=== PATIENT | male | born 1955 | race Caucasian/White ===

== ENCOUNTER → 2017-02-04 | Outpatient (CLI) | payer BC ==
[2013-12-10 10:50] VITALS: BP 116/64
[~2017-02-04] MED LIST: AMLO1TAB93 PO; CLOP75TA57 PO; GLYB2.5T2 PO; HYDR25TA9 PO; METF850T2 PO; PIOG15TA42 PO; REGADENOSON 0.4 MG/5 ML DISP.SYRIN. IV ONE; SIMV10TA PO
--- NOTE | 2017-02-04 11:26 | CARD ---
APPROVED REPORT EXAM: Two-dimensional and M-mode echocardiogram with Doppler and color Doppler. Other Information Quality : GoodHR: 58bpm Rhythm : Bradycardia INDICATION Cardiac Disease: CAD Murmur Chest discomfort RISK FACTORS Obesity 2D DIMENSIONS RVDd3.1 (2.9-3.5cm)Left Atrium(2D)4.0 (1.6-4.0cm) IVSd1.7 (0.7-1.1cm)Aortic Root(2D)3.6 (2.0-3.7cm) LVDd4.6 (3.9-5.9cm)LVOT Diameter2.6 (1.8-2.4cm) PWd1.5 (0.7-1.1cm)LVDs3.3 (2.5-4.0cm) FS (%) 28.8 %SV53.9 ml LVEF(%)55.4 (>50%) Aortic Valve AoV Peak Josafat.138.0cm/sAoV VTI30.9cm AO Peak GR.7.6mmHgLVOT Peak Josafat.84.2cm/s AO Mean GR.5mmHgAVA (VMAX)3.35cm2 Mitral Valve MV E Gafzhzxm60.6cm/sMV E Peak Gr.4mmHg MV DECEL [id number] A Pejisbqs11.3cm/s MV E Mean Gr.1mmHgE/A Ratio0.6 MV A Cpyqfeob12qj Pulmonary Valve PV Peak Eatvhscs71.6cm/s Pulmonary Vein S1 Ekegmagr15.8cm/sD2 Ffqpghls07.7cm/s PVa onrrgjdy82owff LEFT VENTRICLE The left ventricle is normal size. There is mild concentric left ventricular hypertrophy. The left ve ntricular systolic function is normal and the ejection fraction is within normal range. The Ejection Fraction is 55-60%. There is normal LV segmental wall motion. Transmitral Doppler flow pattern is Gra de I-abnormal relaxation pattern. RIGHT VENTRICLE The right ventricle is normal size. There is normal right ventricular wall thickness. The right ventr icular systolic function is normal. ATRIA The left atrium is mildly dilated. The right atrium size is normal. The interatrial septum is intact with no evidence for an atrial septal defect or patent foramen ovale as noted on 2-D or Doppler imagi ng. AORTIC VALVE The aortic valve is mildly sclerotic. The aortic valve is trileaflet. Doppler and Color Flow revealed no significant aortic regurgitation. There is no significant aortic valvular stenosis. MITRAL VALVE Mitral annular calcification is mild. The mitral valve leaflets are thickened. There is no evidence o f mitral valve prolapse. There is no mitral valve stenosis. Doppler and Color Flow revealed no mitral valve regurgitation noted. TRICUSPID VALVE Doppler and Color Flow revealed no tricuspid valve regurgitation noted. There is no pulmonary hyperte nsion. PULMONIC VALVE The pulmonic valve is not well visualized but appears to open adequately. Doppler and Color Flow reve aled no pulmonic valvular regurgitation. There is no pulmonic valvular stenosis by spectral Doppler. GREAT VESSELS The aortic root is normal in size. The ascending aorta is normal in size. The pulmonary artery is nor mal. The IVC is normal in size and collapses >50% with inspiration. PERICARDIAL EFFUSION There is no evidence of significant pericardial effusion. Critical Notification Critical Value: No <Conclusion> The left ventricular systolic function is normal and the ejection fraction is within normal range. Th e Ejection Fraction is 55-60%. There is normal LV segmental wall motion. No significant valvular disease.
--- NOTE | 2017-02-04 13:47 | RAD ---
APPROVED REPORT Test Type: Pharmacological Stress Nurse/Tech: Neelima Moss R.N. Test Indications: CAD Cardiac History: stents 12 years ago, htn,DM Medications: See Electronic Medical Record Medical History: See Electronic Medical Record Resting ECG: SB w/ inverted T wave in leads III,AVF, V3 Resting Heart Rate: 55 bpm Resting Blood Pressure: 146/62mmHg Pretest Chest Pain: No chest pain Nurse/Tech Notes S1S2, lungs CTA Consent: The procedure was explained to the patient in lay terms. Informed consent was witnessed. Ki eout was entered into [employer]. History and Stress Test performed by RT Tejas Chauhan) (N) Pharm. Details Pharmacologic stress testing was performed using 0.4mg per 5ml of regadenoson given intravenously ove r 7-10 seconds. Stress Symptoms slight SOB- quickly resolved POST EXERCISE Reason for Termination: Infusion complete Max HR: 69 bpm Max Blood Pressure: 140/62mmHg Blood Pressure response to exercise: Normal blood pressure response during stress. Heart Rate response to exercise: wnl Chest Pain: No. Arrhythmia: No. ST Change: No. INTERPRETATION Stress EKG Conclusion: No evidence of stress induced EKG changes. Imaging Protocol IMAGE PROTOCOL: Rest Tc-99m/stress Tc-99m 1 day Rest: Stress: Viability: Radiopharm.Tc99m GrcxsnzezIb07g Sestamibi Blpe66dFp 32mCi Img Date 02/04/2017 02/04/2017 Inj-Img Gsbb23vpt. 75min. Rest Admin Site:IV - Left AntecubitalAdministrator:RT Tejas Chauhan)(N) Stress Admin Site: IV - Left AntecubitalAdministrator: RT Gissel (Tanja)(N) STRESS DATA End Diast. Vol.188.0mlAv. Heart Rate64.0bpm End Syst. Vol.78.0mlCO Index BSA0.0L/min Myocardial Sjwc259.0gEject. Thctsixl45.0% Stress Rates Pk. Fill Rate1.95EDV/secLVtime Pk. Fill 239.15msec Pk. Empty Rate2.81ESV/secLVtime Pk. Nrrzf288.23msec 1/3 Pk. Fill0.90EDV/sec Stress Scores Regional WT0.00Summed WT2.00 Regional WM0.00Summed WM3.00 The rest and stress images show normal perfusion, normal contraction and thickening. LV Perf. Quant 17 Seg. SSS0.00 17 Seg. SRS0.00 17 Seg. SDS0.00 Stress Defect Extent (% LAD)0.00Rest Defect Extent (% LAD)0.00Rev. Defect Extent (% LAD)0.00 Stress Defect Extent (% LCX) 0.00Rest Defect Extent (% LCX)0.00Rev. Defect Extent (% LCX)0.00 Stress Defect Extent (% RCA)0.00Rest Defect Extent (% RCA)0.00Rev. Defect Extent (% RCA)0.00 Stress Defect Extent (% YOANNA)0.00Rest Defect Extent (% YOANNA)0.00Rev. Defect Extent (% YOANNA)0.00 Other Information Quality:Good Risk Assessment: Low Risk Conclusion 1. No evidence of EKG changes with stress testing. 2. Normal perfusion at stress/rest. 3. Low risk study. 4. EF > 60%.
== END | disposition home or self-care (01) ==
LOC: NM 09:05
PROVIDERS: ATTEND Internal Medicine Cardiovascular Disease
DX: I25.10 Atherosclerotic heart disease of native coronary artery without angina pectoris (principal); I49.5 Sick sinus syndrome; I10 Essential (primary) hypertension; E11.9 Type 2 diabetes mellitus without complications; R01.1 Cardiac murmur, unspecified
CPT/HCPCS: 78452; 93017; 93306; 96374; 96375; 96376; A9500; J2785

== ENCOUNTER → 2017-06-20 | Outpatient (CLI) | payer BC | END | disposition home or self-care (01) | LOC: US 07:07 | DX: K80.20 Calculus of gallbladder without cholecystitis without obstruction (principal); K82.8 Other specified diseases of gallbladder | CPT/HCPCS: 76700 ==

== ENCOUNTER 2017-07-04 06:05 | Day surgery (SDC) | payer BC ==
[2017-07-04] MEDS: IV RINGERS,LACTATED 1000ML 1,000 ML IV ×2 (06:53)
[2017-07-04 06:55] LABS: POC GLUCOSE 179 mg/dL (70-99)
[2017-07-04] MEDS ORDERED: fentaNYL PF VIAL 100 MCG/2 ML VIAL IV ×2 (07:00)
[2017-07-04] MEDS ORDERED: HYDROmorphone 2 MG/ML VIAL IV ×2 (07:00)
[2017-07-04] MEDS ORDERED: LIDOCAINE 1% PF 2 ML VIAL. ID ×2 (07:00)
[2017-07-04] MEDS ORDERED: ceFAZolin 2GM PREMIX 2 GM/50 ML BAG IV ×2 (07:00)
[2017-07-04] MEDS ORDERED: ONDANSETRON PF 4 MG/2 ML VIAL. IV ×2 (07:00)
[2017-07-04] MEDS ORDERED: MORPHINE SULFATE 4 MG/ML DISP.SYRIN. IV ×2 (07:00)
[2017-07-04] MEDS ORDERED: NEOSTIGMINE 10 MG/10 ML VIAL. ×2 (07:04)
[2017-07-04] MEDS ORDERED: SEVOFLURANE 61 TO 120 MINUTES. IH ×2 (07:04)
[2017-07-04] MEDS ORDERED: MIDAZOLAM HCL/PF 2 MG/2 ML VIAL. ×2 (07:04)
[2017-07-04] MEDS ORDERED: fentaNYL PF VIAL 100 MCG/2 ML VIAL ×4 (07:04→08:50)
[2017-07-04] MEDS ORDERED: LIDOCAINE 2% PF Vial for OR 5 ML VIAL. ×2 (07:05)
[2017-07-04] MEDS ORDERED: ONDANSETRON PF 4 MG/2 ML VIAL. ×2 (07:05)
[2017-07-04] MEDS ORDERED: GLYCOPYRROLATE 1 MG/5 ML VIAL. ×2 (07:05)
[2017-07-04] MEDS ORDERED: PROPOFOL 20 ML IV ×2 (07:05)
[2017-07-04] MEDS ORDERED: KETOROLAC 30 MG/ML INJ FOR OR. INJ ×2 (07:05)
[2017-07-04] MEDS ORDERED: ROCURONIUM 50 MG/5 ML VIAL. ×2 (07:05)
[2017-07-04] MEDS ORDERED: DEXAMETHASONE SOD PHOS 20 MG/5 ML VIAL. ×2 (07:05)
[2017-07-04] MEDS ORDERED: ePHEDrine PF IN SALINE 50 MG/5 ML DISP.SYRIN IV (08:00)
[2017-07-04] MEDS: BUPIVACAINE-EPI 0.25%-1:200000 50 ML VIAL. ×2 (08:10)
[2017-07-04] MEDS ORDERED: PHENYLEPHRINE in 0.9% NACL PF 1 MG/10 ML SYRINGE. IV (08:12)
[2017-07-04] MEDS: IOHEXOL 300 MG/ML 100ML VIAL. ×2 (08:30)
[2017-07-04] MEDS: SURGICEL HEMOSTAT 4X8 EACH. ×2 (08:37)
[2017-07-04 09:30] LABS: POC GLUCOSE 222 mg/dL (70-99)
[2017-07-04] MEDS ORDERED: INSULIN ASPART 100 UNIT/ML 10ML VIAL. SQ ×2 (09:33)
[2017-07-04] MEDS: INSULIN ASPART 100 UNIT/ML 10ML VIAL. SQ ×2 (09:46)
[2017-07-04] MEDS ORDERED: oxyCODONE/APAP 5/325 1 TAB TABLET PO ×2 (10:00)
[2017-07-04] MEDS: fentaNYL PF VIAL 100 MCG/2 ML VIAL IV ×4 (10:08→10:14)
[2017-07-04] MEDS: PROCHLORPERAZINE 10 MG/2 ML VIAL. IV ×2 (10:17)
[2017-07-04] MEDS: oxyCODONE/APAP 5/325 1 TAB TABLET PO ×2 (10:46)
[2017-07-04 10:52] LABS: POC GLUCOSE 227 mg/dL (70-99)
== END 2017-07-04 11:25 | disposition home or self-care (01) ==
LOC: SURG 06:05
DX: K80.10 Calculus of gallbladder with chronic cholecystitis without obstruction (principal); I10 Essential (primary) hypertension; E11.9 Type 2 diabetes mellitus without complications; Z79.899 Other long term (current) drug therapy; Z87.39 Personal history of other diseases of the musculoskeletal system and connective tissue; Z86.39 Personal history of other endocrine, nutritional and metabolic disease; Z87.442 Personal history of urinary calculi
CPT/HCPCS: 47563; 74300; 82962; 88304; C1769; J0690; J0780; J1100; J1815; J1885; J2250; J2370; J2405; J2704; J2710; J3010; J3490; J7030; J7120; Q9967

== ENCOUNTER → 2017-08-22 | Outpatient (CLI) | payer BC | END | disposition home or self-care (01) | LOC: KCIC 12:52 | DX: M19.011 Primary osteoarthritis, right shoulder (principal); M65.28 Calcific tendinitis, other site; G89.29 Other chronic pain; R91.1 Solitary pulmonary nodule | CPT/HCPCS: 73030 ==

== ENCOUNTER → 2017-08-30 | Outpatient (CLI) | payer BC | END | disposition home or self-care (01) | LOC: KCIC 12:56 | DX: R91.1 Solitary pulmonary nodule (principal); Z79.899 Other long term (current) drug therapy | CPT/HCPCS: 71046 ==

== ENCOUNTER 2017-09-23 06:42 | Inpatient (IN) | payer BC ==
[2017-09-23] MEDS ORDERED: IODIXANOL 320 MG/ML 100 ML VIAL. ×2 (07:26→12:39)
[2017-09-23] MEDS ORDERED: LIDOCAINE 2% 20 ML VIAL. ×2 (07:26→12:39)
[2017-09-23 07:40] LABS: HEMATOCRIT 35.6 % (39.0-53.0); HEMOGLOBIN 12.9 g/dL (13.0-17.5); MEAN CORPUSCULAR HEMOGLOBIN 30 pg (25-35); MEAN CORPUSCULAR HGB CONC 36 g/dL (31-37); MEAN CORPUSCULAR VOLUME 84 fL (79-100); PLATELET COUNT 205 x10^3/uL (140-400); RED BLOOD COUNT 4.26 x10^6/uL (4.30-5.70); WHITE BLOOD COUNT 4.6 x10^3/uL (4.0-11.0)
[2017-09-23 07:49] LABS: ANION GAP 7 (6-14); BLOOD UREA NITROGEN 19 mg/dL (8-26); CALCIUM 8.5 mg/dL (8.5-10.1); CARBON DIOXIDE 30 mmol/L (21-32); CHLORIDE 104 mmol/L (98-107); CREATININE 0.8 mg/dL (0.7-1.3); GLUCOSE 222 mg/dL (70-99); SODIUM 141 mmol/L (136-145)
[2017-09-23 07:52] LABS: INR 1.2 (0.8-1.1); PARTIAL THROMBOPLASTIN TIME 31 SEC (24-38); PROTHROMBIN TIME PATIENT 14.2 SEC (11.7-14.0)
[2017-09-23] MEDS ORDERED: MIDAZOLAM HCL/PF 2 MG/2 ML VIAL. ×2 (07:52→12:49)
[2017-09-23] MEDS ORDERED: fentaNYL PF VIAL 100 MCG/2 ML VIAL ×2 (07:52→12:48)
[2017-09-23 08:00] LABS: POTASSIUM 2.9 mmol/L (3.5-5.1)
[2017-09-23] MEDS ORDERED: CONTRAST GIVEN MC (08:15)
[2017-09-23] MEDS ORDERED: POTASSIUM ACETATE IV (08:30)
[2017-09-23] MEDS ORDERED: NORMAL SALINE IV (08:30)
[2017-09-23] MEDS: POTASSIUM CHLORIDE IV ×2 (08:34→10:40)
[2017-09-23] MEDS: POTASSIUM CHLORIDE 20 MEQ/15 ML ORAL LIQUID. PEG (08:34)
[2017-09-23] MEDS: NORMAL SALINE IV ×2 (08:34→10:40)
[2017-09-23] MEDS: IODIXANOL 320 MG/ML 100 ML VIAL. IART (13:39)
[2017-09-23] MEDS: fentaNYL PF VIAL 100 MCG/2 ML VIAL IV (13:40)
[2017-09-23] MEDS: LIDOCAINE 2% 20 ML VIAL. IJ (13:40)
[2017-09-23] MEDS: MIDAZOLAM HCL/PF 2 MG/2 ML VIAL. IV (13:41)
[2017-09-23] MEDS ORDERED: ONDANSETRON PF 4 MG/2 ML VIAL. IV (15:15)
[2017-09-23] MEDS ORDERED: LABETALOL 20 MG/4 ML DISP.SYRIN. IVP (15:15)
[2017-09-23] MEDS ORDERED: 0.9 % SODIUM CHLORIDE 10 ML DISP.SYRIN. IV (15:15)
[2017-09-23] MEDS ORDERED: MAGNESIUM HYDROXIDE 2,400 MG/30 ML ORAL.SUSP. PO (15:15)
[2017-09-23] MEDS ORDERED: DEXTROSE 50% 25 GM / 50ML DISP.SYRIN. IV (15:30)
[2017-09-23] MEDS: NITROGLYCERIN SUBLINGUAL 0.4 MG BOTTLE OF 25. SL ×2 (15:56→16:21)
[2017-09-23] MEDS: ASPIRIN ENTERIC COATED 81 MG TABLET.DR. PO (16:21)
[2017-09-23] MEDS: PANTOPRAZOLE 40 MG TABLET.DR. PO (16:21)
[2017-09-23] MEDS: HEPARIN 25,000UTS/500ML PREMIX 500 ML IV (16:36)
[2017-09-23 17:36] LABS: POC GLUCOSE 218 mg/dL (70-99)
[2017-09-23] MEDS: METOPROLOL TART IMMED RELEASE 25 MG TABLET. PO (17:46)
[2017-09-23] MEDS: INSULIN LISPRO 300 UNITS/3 ML INSULN.PEN. SQ (17:48)
[2017-09-23] MEDS ORDERED: fentaNYL PF VIAL 100 MCG/2 ML VIAL IV (19:45)
[2017-09-23] MEDS: ATORVASTATIN CALCIUM 40 MG TABLET. PO (20:31)
[2017-09-23] MEDS: oxyCODONE/APAP 5/325 1 TAB TABLET PO (20:31)
[2017-09-23] MEDS: NITROGLYCERIN PREMIX 250 ML IV (20:32)
[2017-09-23 20:35] LABS: POC GLUCOSE 282 mg/dL (70-99)
[2017-09-23 21:13] LABS: UNFRACTIONATED HEPARIN TESTING < 0.10 IU/mL (0.30-0.70)
[2017-09-23] MEDS: HEPARIN for IV BOLUS 10,000 UNIT/10 ML VIAL. IV (21:23)
[2017-09-24] MEDS: oxyCODONE/APAP 5/325 1 TAB TABLET PO ×2 (01:28→21:04)
[2017-09-24 05:13] LABS: ADD MAN DIFF? NO
[2017-09-24 05:42] LABS: ANION GAP 6 (6-14); BLOOD UREA NITROGEN 17 mg/dL (8-26); CALCIUM 7.9 mg/dL (8.5-10.1); CARBON DIOXIDE 29 mmol/L (21-32); CHLORIDE 104 mmol/L (98-107); CHOLESTEROL 108 mg/dL (0-200); CHOLESTEROL/HDL RATIO 2.3; CREATININE 0.8 mg/dL (0.7-1.3); GLUCOSE 195 mg/dL (70-99); HDLC 48 mg/dL (40-60); LDLC 54 mg/dL (0-100); MAGNESIUM 1.7 mg/dL (1.8-2.4); NON-HDL CHOLESTEROL 60 mg/dL (0-129); POTASSIUM 3.3 mmol/L (3.5-5.1); SODIUM 139 mmol/L (136-145); TRIGLYCERIDES 30 mg/dL (0-150); VLDLC 6 mg/dL (0-40)
[2017-09-24 05:54] LABS: BASO # 0.1 x10^3/uL (0.0-0.2); BASO % 1 % (0-3); EOS # 0.1 x10^3/uL (0.0-0.7); EOS % 2 % (0-3); HEMATOCRIT 33.3 % (39.0-53.0); LYMPH # 2.4 x10^3/uL (1.0-4.8); LYMPH % 45 % (24-48); MEAN CORPUSCULAR HEMOGLOBIN 30 pg (25-35); MEAN CORPUSCULAR HGB CONC 36 g/dL (31-37); MEAN CORPUSCULAR VOLUME 84 fL (79-100); MONO # 0.5 x10^3/uL (0.0-1.1); MONO % 10 % (0-9); NEUT # 2.2 x10^3uL (1.8-7.7); NEUT % 41 % (31-73); PLATELET COUNT 189 x10^3/uL (140-400); RED BLOOD COUNT 3.97 x10^6/uL (4.30-5.70); RED CELL DISTRIBUTION WIDTH 13.9 % (11.5-14.5); WHITE BLOOD COUNT 5.3 x10^3/uL (4.0-11.0)
[2017-09-24 05:56] LABS: UNFRACTIONATED HEPARIN TESTING 0.25 IU/mL (0.30-0.70)
[2017-09-24 07:26] LABS: POC GLUCOSE 162 mg/dL (70-99)
[2017-09-24] MEDS: ASPIRIN ENTERIC COATED 81 MG TABLET.DR. PO (08:21)
[2017-09-24] MEDS: PANTOPRAZOLE 40 MG TABLET.DR. PO (08:21)
[2017-09-24] MEDS: METOPROLOL TART IMMED RELEASE 25 MG TABLET. PO ×2 (08:22→20:48)
[2017-09-24] MEDS: INSULIN LISPRO 300 UNITS/3 ML INSULN.PEN. SQ ×3 (08:24→17:50)
[2017-09-24] MEDS: HEPARIN 25,000UTS/500ML PREMIX 500 ML IV (08:39)
[2017-09-24 11:16] LABS: POC GLUCOSE 166 mg/dL (70-99)
[2017-09-24] MEDS: ANTI-COAG MONITOR BY PHARMACY. MC (13:01)
[2017-09-24 13:05] LABS: UNFRACTIONATED HEPARIN TESTING 0.38 IU/mL (0.30-0.70)
[2017-09-24 18:04] LABS: POC GLUCOSE 231 mg/dL (70-99)
[2017-09-24 18:41] LABS: UNFRACTIONATED HEPARIN TESTING 0.45 IU/mL (0.30-0.70)
[2017-09-24] MEDS: ATORVASTATIN CALCIUM 40 MG TABLET. PO (20:48)
[2017-09-24 21:19] LABS: POC GLUCOSE 228 mg/dL (70-99)
[2017-09-25] MEDS: HEPARIN 25,000UTS/500ML PREMIX 500 ML IV ×2 (05:00→18:43)
[2017-09-25 05:15] LABS: UNFRACTIONATED HEPARIN TESTING 0.38 IU/mL (0.30-0.70)
[2017-09-25] MEDS: PANTOPRAZOLE 40 MG TABLET.DR. PO (08:10)
[2017-09-25] MEDS: ASPIRIN ENTERIC COATED 81 MG TABLET.DR. PO (08:10)
[2017-09-25] MEDS: METOPROLOL TART IMMED RELEASE 25 MG TABLET. PO ×2 (08:11→21:00)
[2017-09-25] MEDS: INSULIN LISPRO 300 UNITS/3 ML INSULN.PEN. SQ ×3 (08:15→17:00)
[2017-09-25 08:17] LABS: POC GLUCOSE 220 mg/dL (70-99)
[2017-09-25] MEDS: ANTI-COAG MONITOR BY PHARMACY. MC (09:55)
[2017-09-25 13:10] LABS: POC GLUCOSE 203 mg/dL (70-99)
[2017-09-25 17:13] LABS: POC GLUCOSE 143 mg/dL (70-99)
[2017-09-25] MEDS: oxyCODONE/APAP 5/325 1 TAB TABLET PO (18:12)
[2017-09-25] MEDS: NITROGLYCERIN PREMIX 250 ML IV (18:43)
[2017-09-25] MEDS: ATORVASTATIN CALCIUM 40 MG TABLET. PO (20:30)
[2017-09-25 20:41] LABS: POC GLUCOSE 221 mg/dL (70-99)
[2017-09-26] MEDS: oxyCODONE/APAP 5/325 1 TAB TABLET PO (00:05)
[2017-09-26 06:55] LABS: UNFRACTIONATED HEPARIN TESTING 0.32 IU/mL (0.30-0.70)
[2017-09-26 07:14] LABS: BLOOD UREA NITROGEN 13 mg/dL (8-26); CALCIUM 8.2 mg/dL (8.5-10.1); CHLORIDE 105 mmol/L (98-107)
[2017-09-26 07:18] LABS: ANION GAP 4 (6-14); CARBON DIOXIDE 31 mmol/L (21-32); CREATININE 0.8 mg/dL (0.7-1.3); GLUCOSE 184 mg/dL (70-99); POTASSIUM 3.8 mmol/L (3.5-5.1); SODIUM 140 mmol/L (136-145)
[2017-09-26 07:36] LABS: POC GLUCOSE 174 mg/dL (70-99)
[2017-09-26] MEDS: METOPROLOL TART IMMED RELEASE 25 MG TABLET. PO ×2 (09:12→21:33)
[2017-09-26] MEDS: PANTOPRAZOLE 40 MG TABLET.DR. PO (09:12)
[2017-09-26] MEDS: ASPIRIN ENTERIC COATED 81 MG TABLET.DR. PO (09:12)
[2017-09-26] MEDS: INSULIN LISPRO 300 UNITS/3 ML INSULN.PEN. SQ ×3 (09:18→17:00)
[2017-09-26 11:55] LABS: POC GLUCOSE 184 mg/dL (70-99)
[2017-09-26] MEDS: HEPARIN 25,000UTS/500ML PREMIX 500 ML IV (15:53)
[2017-09-26 17:16] LABS: POC GLUCOSE 135 mg/dL (70-99)
[2017-09-26 20:49] LABS: POC GLUCOSE 194 mg/dL (70-99)
[2017-09-26] MEDS: ATORVASTATIN CALCIUM 40 MG TABLET. PO (21:32)
[2017-09-27 06:14] LABS: ADD MAN DIFF? NO
[2017-09-27 06:30] LABS: BASO # 0.1 x10^3/uL (0.0-0.2); BASO % 2 % (0-3); EOS # 0.2 x10^3/uL (0.0-0.7); EOS % 3 % (0-3); HEMATOCRIT 32.6 % (39.0-53.0); HEMOGLOBIN 11.7 g/dL (13.0-17.5); LYMPH # 1.9 x10^3/uL (1.0-4.8); LYMPH % 37 % (24-48); MEAN CORPUSCULAR HEMOGLOBIN 30 pg (25-35); MEAN CORPUSCULAR HGB CONC 36 g/dL (31-37); MEAN CORPUSCULAR VOLUME 84 fL (79-100); MONO # 0.6 x10^3/uL (0.0-1.1); MONO % 12 % (0-9); NEUT # 2.4 x10^3uL (1.8-7.7); NEUT % 47 % (31-73); PLATELET COUNT 180 x10^3/uL (140-400); RED BLOOD COUNT 3.88 x10^6/uL (4.30-5.70); RED CELL DISTRIBUTION WIDTH 13.8 % (11.5-14.5); WHITE BLOOD COUNT 5.3 x10^3/uL (4.0-11.0)
[2017-09-27 07:01] LABS: ALBUMIN 3.1 g/dL (3.4-5.0); ALBUMIN/GLOBULIN RATIO 0.9 (1.0-1.7); ALK PHOS 130 U/L (46-116); ALT (SGPT) 18 U/L (16-63); ANION GAP 6 (6-14); AST (SGOT) 19 U/L (15-37); BLOOD UREA NITROGEN 9 mg/dL (8-26); BUN/CREATININE RATIO 11 (6-20); CALCIUM 8.5 mg/dL (8.5-10.1); CARBON DIOXIDE 29 mmol/L (21-32); CHLORIDE 107 mmol/L (98-107); CREATININE 0.8 mg/dL (0.7-1.3); GLUCOSE 183 mg/dL (70-99); POTASSIUM 4.4 mmol/L (3.5-5.1); SODIUM 142 mmol/L (136-145); TOTAL BILIRUBIN 0.9 mg/dL (0.2-1.0); TOTAL PROTEIN 6.4 g/dL (6.4-8.2)
[2017-09-27 07:35] LABS: POC GLUCOSE 174 mg/dL (70-99)
[2017-09-27] MEDS: ASPIRIN ENTERIC COATED 81 MG TABLET.DR. PO (08:42)
[2017-09-27] MEDS: PANTOPRAZOLE 40 MG TABLET.DR. PO (08:42)
[2017-09-27] MEDS: METOPROLOL TART IMMED RELEASE 25 MG TABLET. PO ×2 (08:42→21:39)
[2017-09-27] MEDS: INSULIN LISPRO 300 UNITS/3 ML INSULN.PEN. SQ ×3 (08:47→17:36)
[2017-09-27] MEDS: HEPARIN 25,000UTS/500ML PREMIX 500 ML IV (10:01)
[2017-09-27 11:19] LABS: POC GLUCOSE 202 mg/dL (70-99)
[2017-09-27 13:10] LABS: MAGNESIUM 2.1 mg/dL (1.8-2.4)
[2017-09-27 16:56] LABS: POC GLUCOSE 225 mg/dL (70-99)
[2017-09-27 20:47] LABS: POC GLUCOSE 159 mg/dL (70-99)
[2017-09-27] MEDS: ATORVASTATIN CALCIUM 40 MG TABLET. PO (21:39)
[2017-09-28 04:20] LABS: POC GLUCOSE 182 mg/dL (70-99)
[2017-09-28] MEDS ORDERED: ROCURONIUM 100 MG/10 ML VIAL. ×2 (06:26→09:26)
[2017-09-28] MEDS ORDERED: SUFentanil 100 MCG/2 ML AMPUL. (06:26)
[2017-09-28] MEDS ORDERED: PHENYLEPHRINE 10 MG/ML VIAL. ×3 (06:27)
[2017-09-28] MEDS ORDERED: HEPARIN 30,000 UNIT/30 ML VIAL. ×2 (06:27→12:40)
[2017-09-28] MEDS ORDERED: LIDOCAINE 2% PF Vial for OR 5 ML VIAL. ×3 (06:27→12:40)
[2017-09-28] MEDS ORDERED: ETOMIDATE 20 MG/10 ML VIAL. IV (06:27)
[2017-09-28] MEDS ORDERED: MIDAZOLAM HCL/PF 5 MG/5 ML VIAL. ×2 (06:27→12:05)
[2017-09-28] MEDS ORDERED: NITROGLYCERIN PREMIX 250 ML IV ×2 (06:28→14:00)
[2017-09-28] MEDS ORDERED: ALBUMIN HUMAN 5% 0 ML IV (06:28)
[2017-09-28] MEDS ORDERED: ALBUMIN HUMAN 5% 500 ML IV (06:28)
[2017-09-28 06:29] LABS: HEMATOCRIT 31.8 % (39.0-53.0); HEMOGLOBIN 11.2 g/dL (13.0-17.5); MEAN CORPUSCULAR HEMOGLOBIN 30 pg (25-35); MEAN CORPUSCULAR HGB CONC 35 g/dL (31-37); MEAN CORPUSCULAR VOLUME 84 fL (79-100); PLATELET COUNT 180 x10^3/uL (140-400); RED BLOOD COUNT 3.77 x10^6/uL (4.30-5.70); WHITE BLOOD COUNT 5.3 x10^3/uL (4.0-11.0)
[2017-09-28 06:37] LABS: INR 1.1 (0.8-1.1); PARTIAL THROMBOPLASTIN TIME 35 SEC (24-38); PROTHROMBIN TIME PATIENT 13.8 SEC (11.7-14.0)
[2017-09-28] MEDS ORDERED: ePHEDrine PF IN SALINE 50 MG/5 ML DISP.SYRIN IV (06:38)
[2017-09-28 06:39] LABS: ANION GAP 5 (6-14); BLOOD UREA NITROGEN 11 mg/dL (8-26); CALCIUM 8.6 mg/dL (8.5-10.1); CARBON DIOXIDE 28 mmol/L (21-32); CHLORIDE 106 mmol/L (98-107); CREATININE 0.8 mg/dL (0.7-1.3); GLUCOSE 182 mg/dL (70-99); SODIUM 139 mmol/L (136-145)
[2017-09-28] MEDS: IV RINGERS,LACTATED 1000ML 1,000 ML IV (06:51)
[2017-09-28] MEDS ORDERED: ONDANSETRON PF 4 MG/2 ML VIAL. IV ×2 (07:00→14:00)
[2017-09-28] MEDS ORDERED: fentaNYL PF VIAL 100 MCG/2 ML VIAL IV ×2 (07:00)
[2017-09-28] MEDS ORDERED: PROCHLORPERAZINE 10 MG/2 ML VIAL. IV ×2 (07:00→14:00)
[2017-09-28] MEDS ORDERED: LIDOCAINE 1% PF 2 ML VIAL. ID (07:00)
[2017-09-28] MEDS ORDERED: MORPHINE SULFATE 2 MG/ML DISP.SYRIN. IV (07:00)
[2017-09-28] MEDS: PANTOPRAZOLE 40 MG TABLET.DR. PO (07:30)
[2017-09-28] MEDS ORDERED: EPINEPHrine 1 MG/ML VIAL (07:32)
[2017-09-28] MEDS: TRANEXAMIC ACID 1,000 MG/10 ML VIAL. TOP (09:00)
[2017-09-28] MEDS: TRANEXAMIC ACID 1,000 MG in IV NORMAL SALINE 50ML 50 ML INJ (09:00)
[2017-09-28] MEDS: HEPARIN PRESERVATIVE FREE 800 UNIT, NITROGLYCERIN 4 MG, VERAPAMIL 8 MG, SODIUM BICARBON... IRR (09:08)
[2017-09-28] MEDS: HEPARIN 20,000 UNIT in IV RINGERS,LACTATED 1000ML 1,000 ML IRR (09:12)
[2017-09-28] MEDS: PAPAVERINE 60 MG/2 ML VIAL FOR OR ONLY. (09:12)
[2017-09-28] MEDS: SURGICEL HEMOSTAT 4X8 EACH. (09:12)
[2017-09-28] MEDS: VANCOMYCIN 10GM VIAL for OR. (09:12)
[2017-09-28] MEDS ORDERED: HEPARIN for IV BOLUS 10,000 UNIT/10 ML VIAL. ×3 (09:13→12:40)
[2017-09-28] MEDS: POTASSIUM CHLORIDE 70 MEQ, SODIUM BICARBONATE VIAL 12.5 MEQ, LIDOCAINE 2% 24 ML in IV E... IRR (11:11)
[2017-09-28] MEDS: POTASSIUM CHLORIDE 15 MEQ, SODIUM BICARBONATE VIAL 12.5 MEQ in IV ELECTROLYTE-S (PH 7.4... IRR (11:11)
[2017-09-28] MEDS: ANTI-COAG MONITOR BY PHARMACY. MC (11:31)
[2017-09-28] MEDS ORDERED: PROTAMINE 250 MG/25 ML VIAL IV (12:29)
[2017-09-28] MEDS ORDERED: MANNITOL 25% 12.5 G/50 ML VIAL FOR OR. (12:40)
[2017-09-28] MEDS ORDERED: ALBUMIN HUMAN 25% 100 ML IV (12:40)
[2017-09-28] MEDS ORDERED: CALCIUM CHLORIDE 1,000 MG/10 ML DISP.SYRIN IV (12:40)
[2017-09-28] MEDS ORDERED: MAGNESIUM SULFATE 5 GM/10 ML VIAL. (12:40)
[2017-09-28] MEDS ORDERED: PROTAMINE 50 MG/5 ML VIAL. IV (13:21)
[2017-09-28] MEDS ORDERED: ISOFLURANE > 120 MINUTES. IH (13:33)
[2017-09-28 13:45] LABS: HEMOGLOBIN 7.1 g/dL (13.0-17.5); PLATELET COUNT 96 x10^3/uL (140-400); WHITE BLOOD COUNT 7.6 x10^3/uL (4.0-11.0)
[2017-09-28] MEDS: ASPIRIN 300 MG SUPP.RECT (13:47)
[2017-09-28 13:52] LABS: PARTIAL THROMBOPLASTIN TIME 42 SEC (24-38); PROTHROMBIN TIME PATIENT 22.4 SEC (11.7-14.0)
[2017-09-28 13:54] LABS: ART BE ISTAT 1 mmol/L (0-3); ART BE ISTAT 2 mmol/L (0-3); ART BE ISTAT 3 mmol/L (0-3); ART GLUC ISTAT 123 mg/dL (70-99); ART GLUC ISTAT 137 mg/dL (70-99); ART GLUC ISTAT 139 mg/dL (70-99); ART GLUC ISTAT 156 mg/dL (70-99); ART GLUC ISTAT 170 mg/dL (70-99); ART GLUC ISTAT 176 mg/dL (70-99); ART HCO3 ISTAT 26 mmol/L (21-28); ART HCO3 ISTAT 27 mmol/L (21-28); ART HCO3 ISTAT 28 mmol/L (21-28); ART HCT ISTAT 23 % (37-52); ART HCT ISTAT 25 % (37-52); ART HCT ISTAT 26 % (37-52); ART HCT ISTAT 27 % (37-52); ART HCT ISTAT 28 % (37-52); ART HGB ISTAT 7.8 g/dL (14-18); ART HGB ISTAT 8.5 g/dL (14-18); ART HGB ISTAT 8.8 g/dL (14-18); ART HGB ISTAT 9.2 g/dL (14-18); ART HGB ISTAT 9.5 g/dL (14-18); ART ION CA ISTAT 1.18 mmol/L (1.13-1.32); ART ION CA ISTAT 1.19 mmol/L (1.13-1.32); ART ION CA ISTAT 1.23 mmol/L (1.13-1.32); ART ION CA ISTAT 1.37 mmol/L (1.13-1.32); ART ION CA ISTAT 1.49 mmol/L (1.13-1.32); ART ION CA ISTAT 2.33 mmol/L (1.13-1.32); ART K ISTAT 3.2 mmol/L (3.5-5.0); ART K ISTAT 3.5 mmol/L (3.5-5.0); ART K ISTAT 3.6 mmol/L (3.5-5.0); ART K ISTAT 3.7 mmol/L (3.5-5.0); ART NA ISTAT 139 mmol/L (135-145); ART NA ISTAT 140 mmol/L (135-145); ART NA ISTAT 141 mmol/L (135-145); ART PCO2 ISTAT 38 mmHg (35-45); ART PCO2 ISTAT 39 mmHg (35-45); ART PCO2 ISTAT 40 mmHg (35-45); ART PCO2 ISTAT 41 mmHg (35-45); ART PCO2 ISTAT 43 mmHg (35-45); ART PH ISTAT 7.41 (7.35-7.45); ART PH ISTAT 7.42 (7.35-7.45); ART PH ISTAT 7.43 (7.35-7.45); ART PH ISTAT 7.44 (7.35-7.45); ART PO2 ISTAT 278 mmHg (75-100); ART PO2 ISTAT 310 mmHg (75-100); ART PO2 ISTAT 333 mmHg (75-100); ART PO2 ISTAT 337 mmHg (75-100); ART PO2 ISTAT 340 mmHg (75-100); ART PO2 ISTAT 351 mmHg (75-100); ART PO2 ISTAT 403 mmHg (75-100); ART SAT O2 SAT 100 % (95-99); ART TCO2 ISTAT 27 mmol/L (21-32); ART TCO2 ISTAT 29 mmol/L (21-32); CORRECTED PCO2 45 mmHg; CORRECTED PO2 337 mmHg; TOSPEC ART
[2017-09-28 13:58] LABS: FIBRINOGEN 175 mg/dL (200-440)
[2017-09-28] MEDS ORDERED: PROPOFOL 100 ML IV (14:00)
[2017-09-28] MEDS ORDERED: MAGNESIUM SULFATE 1GM 100 ML IV (14:00)
[2017-09-28] MEDS ORDERED: ELECTROLYTE (ICU) PROTOCOL. MC (14:00)
[2017-09-28] MEDS ORDERED: ALBUTEROL SULFATE 2.5 MG/3 ML NEBU. NEB (14:00)
[2017-09-28] MEDS ORDERED: AMIODARONE 900 MG in IV DEXTROSE 5% 500 ML IV (14:00)
[2017-09-28] MEDS ORDERED: MEPERIDINE PF 25 MG/ML VIAL. IV (14:00)
[2017-09-28] MEDS ORDERED: PHENYLEPHRINE INJ 20 MG in IV NORMAL SALINE 250ML 250 ML IV (14:00)
[2017-09-28] MEDS ORDERED: BISACODYL 10 MG SUPP.RECT. PR (14:00)
[2017-09-28] MEDS ORDERED: AMIODARONE 150 MG in IV DEXTROSE 5% 100 ML IV (14:00)
[2017-09-28] MEDS ORDERED: 0.9 % SODIUM CHLORIDE 10 ML DISP.SYRIN. IV (14:00)
[2017-09-28 14:41] LABS: ANION GAP 7 (6-14); BLOOD UREA NITROGEN 11 mg/dL (8-26); CALCIUM 8.7 mg/dL (8.5-10.1); CARBON DIOXIDE 25 mmol/L (21-32); CHLORIDE 110 mmol/L (98-107); CREATININE 0.7 mg/dL (0.7-1.3); GFR 114.3; GLUCOSE 119 mg/dL (70-99); POTASSIUM 3.9 mmol/L (3.5-5.1); SODIUM 142 mmol/L (136-145)
[2017-09-28] MEDS: ALBUMIN HUMAN 5% 250 ML IV ×3 (14:46→16:50)
[2017-09-28] MEDS: AMIODARONE 900 MG in IV DEXTROSE 5% 500 ML IV (14:47)
[2017-09-28] MEDS: AMIODARONE 150 MG in IV DEXTROSE 5% 100 ML IV (14:47)
[2017-09-28] MEDS: INSULIN REGULAR VIAL 150 UNIT in 0.9 % SODIUM CHLORIDE 150ML 150 ML IV (14:48)
[2017-09-28 14:51] LABS: BASE EXCESS COOX -1 mmol/L (-3-3); CARBON MONOXIDE 0.3 % (0.0-1.9); HCO3 COOX 23 mmol/L (21-28); OXYHEMOGLOBIN 97.6 %; PCO2 COOX 35 mmHg (35-46); PH COOX 7.43 (7.35-7.45); PO2 COOX 191 mmHg (65-108); SAT O2 COOX 98 % (92-99); TOTAL HEMOGLOBIN 10.5 g/dL
[2017-09-28 14:52] LABS: FIO2 COOX 100
[2017-09-28 14:55] LABS: ADD MAN DIFF? NO
[2017-09-28 14:57] LABS: BASO % 0 % (0-3); EOS % 0 % (0-3); HEMOGLOBIN 10.4 g/dL (13.0-17.5); LYMPH # 0.9 x10^3/uL (1.0-4.8); LYMPH % 11 % (24-48); MEAN CORPUSCULAR HEMOGLOBIN 30 pg (25-35); MEAN CORPUSCULAR HGB CONC 36 g/dL (31-37); MEAN CORPUSCULAR VOLUME 84 fL (79-100); MONO # 0.6 x10^3/uL (0.0-1.1); MONO % 6 % (0-9); NEUT # 7.1 x10^3uL (1.8-7.7); NEUT % 82 % (31-73); PLATELET COUNT 142 x10^3/uL (140-400); RED BLOOD COUNT 3.46 x10^6/uL (4.30-5.70); WHITE BLOOD COUNT 8.6 x10^3/uL (4.0-11.0)
[2017-09-28] MEDS: MORPHINE SULFATE 4 MG/ML DISP.SYRIN. IV ×6 (14:57→23:09)
[2017-09-28 15:06] LABS: ANION GAP 5 (6-14); BLOOD UREA NITROGEN 10 mg/dL (8-26); CALCIUM 8.6 mg/dL (8.5-10.1); CARBON DIOXIDE 25 mmol/L (21-32); CHLORIDE 108 mmol/L (98-107); CREATININE 0.7 mg/dL (0.7-1.3); GFR 114.3; GLUCOSE 120 mg/dL (70-99); POTASSIUM 3.5 mmol/L (3.5-5.1); SODIUM 138 mmol/L (136-145)
[2017-09-28 15:07] LABS: INR 1.4 (0.8-1.1); MAGNESIUM 1.8 mg/dL (1.8-2.4); PARTIAL THROMBOPLASTIN TIME 36 SEC (24-38); PROTHROMBIN TIME PATIENT 16.9 SEC (11.7-14.0)
[2017-09-28 15:33] LABS: ACT+ 96 SEC (90-125)
[2017-09-28 15:34] LABS: ACT+ 435 SEC (90-125)
[2017-09-28 15:34] LABS: ACT+ 488 SEC (90-125)
[2017-09-28 15:35] LABS: ACT+ 475 SEC (90-125)
[2017-09-28 15:36] LABS: ACT+ 445 SEC (90-125)
[2017-09-28 15:36] LABS: ACT+ 489 SEC (90-125)
[2017-09-28 15:37] LABS: ACT+ 103 SEC (90-125)
[2017-09-28] MEDS: POTASSIUM CHLORIDE 20MEQ 50 ML IV ×2 (15:45→16:49)
[2017-09-28 16:38] LABS: IMMEDIATE SPIN CROSSMATCH 1 2
[2017-09-28] MEDS: PROTAMINE 50 MG/5 ML VIAL. IV (16:41)
[2017-09-28] MEDS: MAGNESIUM SULFATE 2GM 50 ML IV (16:42)
[2017-09-28 17:03] LABS: POC GLUCOSE 143 mg/dL (70-99)
[2017-09-28 17:03] LABS: POC GLUCOSE 152 mg/dL (70-99)
[2017-09-28 17:03] LABS: POC GLUCOSE 101 mg/dL (70-99)
[2017-09-28 17:18] LABS: HEMATOCRIT 27.3 % (39.0-53.0); HEMOGLOBIN 9.8 g/dL (13.0-17.5); MEAN CORPUSCULAR HEMOGLOBIN 30 pg (25-35); MEAN CORPUSCULAR HGB CONC 36 g/dL (31-37); MEAN CORPUSCULAR VOLUME 84 fL (79-100); PLATELET COUNT 188 x10^3/uL (140-400); RED BLOOD COUNT 3.24 x10^6/uL (4.30-5.70); RED CELL DISTRIBUTION WIDTH 13.5 % (11.5-14.5); WHITE BLOOD COUNT 8.9 x10^3/uL (4.0-11.0)
[2017-09-28 17:25] LABS: FIBRINOGEN 315 mg/dL (200-440); INR 1.4 (0.8-1.1); PARTIAL THROMBOPLASTIN TIME 34 SEC (24-38); PROTHROMBIN TIME PATIENT 16.4 SEC (11.7-14.0)
[2017-09-28 17:45] LABS: BASE EXCESS ABG -1 mmol/L (-3-3); HCO3 ABG 22 mmol/L (21-28); PCO2 ABG 29 mmHg (35-46); PO2 ABG 103 mmHg (65-108); SAT O2 ABG 97 % (92-99)
[2017-09-28 17:47] LABS: FIO2 ABG 40
[2017-09-28 19:16] LABS: POC GLUCOSE 156 mg/dL (70-99)
[2017-09-28 19:16] LABS: POC GLUCOSE 122 mg/dL (70-99)
[2017-09-28 19:29] LABS: ANION GAP 9 (6-14); BLOOD UREA NITROGEN 12 mg/dL (8-26); CALCIUM 8.4 mg/dL (8.5-10.1); CARBON DIOXIDE 22 mmol/L (21-32); CHLORIDE 108 mmol/L (98-107); CREATININE 0.7 mg/dL (0.7-1.3); GFR 114.3; GLUCOSE 150 mg/dL (70-99); MAGNESIUM 2.3 mg/dL (1.8-2.4); POTASSIUM 4.4 mmol/L (3.5-5.1); SODIUM 139 mmol/L (136-145)
[2017-09-28 20:20] LABS: BASE EXCESS ABG -3 mmol/L (-3-3); HCO3 ABG 20 mmol/L (21-28); PCO2 ABG 30 mmHg (35-46); PH ABG 7.45 (7.35-7.45); PO2 ABG 124 mmHg (65-108); SAT O2 ABG 97 % (92-99)
[2017-09-28] MEDS: AMIODARONE HCL 200 MG TABLET. PO (21:00)
[2017-09-28] MEDS: CHLORHEXIDINE 0.12% 15 ML MOUTHWASH. MM (21:00)
[2017-09-28] MEDS: SENNOSIDES/DOCUSATE 8.6/50MG TABLET. PO (21:48)
[2017-09-28] MEDS: ATORVASTATIN CALCIUM 40 MG TABLET. PO (21:48)
[2017-09-28] MEDS: oxyCODONE/APAP 5/325 1 TAB TABLET PO (21:48)
[2017-09-28] MEDS: FAMOTIDINE 20 MG/2 ML VIAL IVP (21:49)
[2017-09-28 22:29] LABS: POC GLUCOSE 141 mg/dL (70-99)
[2017-09-28 23:51] LABS: POC GLUCOSE 136 mg/dL (70-99)
[2017-09-29] MEDS: ALBUMIN HUMAN 5% 250 ML IV ×3 (00:06→18:27)
[2017-09-29 01:02] LABS: POC GLUCOSE 136 mg/dL (70-99)
[2017-09-29 01:58] LABS: POC GLUCOSE 123 mg/dL (70-99)
[2017-09-29] MEDS: oxyCODONE/APAP 5/325 1 TAB TABLET PO ×4 (02:02→21:43)
[2017-09-29] MEDS: FUROSEMIDE 40 MG/4 ML VIAL. IVP ×2 (02:17→17:52)
[2017-09-29 03:16] LABS: POC GLUCOSE 131 mg/dL (70-99)
[2017-09-29 05:41] LABS: ANION GAP 9 (6-14); BLOOD UREA NITROGEN 13 mg/dL (8-26); CALCIUM 8.1 mg/dL (8.5-10.1); CARBON DIOXIDE 24 mmol/L (21-32); CHLORIDE 106 mmol/L (98-107); CREATININE 0.8 mg/dL (0.7-1.3); GLUCOSE 147 mg/dL (70-99); MAGNESIUM 1.9 mg/dL (1.8-2.4); POTASSIUM 4.1 mmol/L (3.5-5.1); SODIUM 139 mmol/L (136-145)
[2017-09-29 05:44] LABS: HEMATOCRIT 23.2 % (39.0-53.0); HEMOGLOBIN 8.1 g/dL (13.0-17.5); MEAN CORPUSCULAR HEMOGLOBIN 30 pg (25-35); MEAN CORPUSCULAR HGB CONC 35 g/dL (31-37); MEAN CORPUSCULAR VOLUME 86 fL (79-100); PLATELET COUNT 154 x10^3/uL (140-400); RED BLOOD COUNT 2.71 x10^6/uL (4.30-5.70); RED CELL DISTRIBUTION WIDTH 13.8 % (11.5-14.5); WHITE BLOOD COUNT 5.9 x10^3/uL (4.0-11.0)
[2017-09-29 07:06] LABS: POC GLUCOSE 153 mg/dL (70-99)
[2017-09-29 07:06] LABS: POC GLUCOSE 138 mg/dL (70-99)
[2017-09-29 07:06] LABS: POC GLUCOSE 139 mg/dL (70-99)
[2017-09-29 07:06] LABS: POC GLUCOSE 154 mg/dL (70-99)
[2017-09-29] MEDS: MAGNESIUM SULFATE 1GM 100 ML IV (07:24)
[2017-09-29] MEDS: POTASSIUM CHLORIDE 20MEQ 50 ML IV (07:26)
[2017-09-29] MEDS: PANTOPRAZOLE 40 MG TABLET.DR. PO (07:30)
[2017-09-29] MEDS: FAMOTIDINE 20 MG/2 ML VIAL IVP (07:31)
[2017-09-29] MEDS: MORPHINE SULFATE 4 MG/ML DISP.SYRIN. IV ×2 (08:15→17:50)
[2017-09-29] MEDS: ASPIRIN ENTERIC COATED 325 MG TABLET.DR. PO (08:16)
[2017-09-29] MEDS: SENNOSIDES/DOCUSATE 8.6/50MG TABLET. PO ×2 (08:16→20:44)
[2017-09-29] MEDS: AMIODARONE HCL 200 MG TABLET. PO ×2 (09:00→20:45)
[2017-09-29 09:09] LABS: POC GLUCOSE 152 mg/dL (70-99)
[2017-09-29] MEDS: METOPROLOL TART IMMED RELEASE 25 MG TABLET. PO ×2 (09:59→20:44)
[2017-09-29] MEDS: ALBUMIN HUMAN 5% 500 ML IV (14:30)
[2017-09-29] MEDS ORDERED: DEXTROSE 50% 25 GM / 50ML DISP.SYRIN. IV (15:45)
[2017-09-29 15:59] LABS: POC GLUCOSE 185 mg/dL (70-99)
[2017-09-29] MEDS: PRENATAL MULTIVITAMIN TABLET. PO (17:52)
[2017-09-29] MEDS: CYANOCOBALAMIN (VITAMIN B-12) 1,000 MCG TABLET. PO (17:52)
[2017-09-29] MEDS: FERROUS SULFATE ORAL 300 MG/5 ML SOLUTION. PO (17:52)
[2017-09-29] MEDS: INSULIN LISPRO 300 UNITS/3 ML INSULN.PEN. SQ ×2 (18:26→21:15)
[2017-09-29 18:44] LABS: POC GLUCOSE 212 mg/dL (70-99)
[2017-09-29] MEDS: FAMOTIDINE 20 MG TABLET. PO (20:45)
[2017-09-29] MEDS: ATORVASTATIN CALCIUM 40 MG TABLET. PO (20:45)
[2017-09-29 20:49] LABS: POC GLUCOSE 246 mg/dL (70-99)
[2017-09-30] MEDS: oxyCODONE/APAP 5/325 1 TAB TABLET PO ×4 (01:43→12:44)
[2017-09-30 06:11] LABS: HEMOGLOBIN 7.3 g/dL (13.0-17.5); MEAN CORPUSCULAR HEMOGLOBIN 30 pg (25-35); MEAN CORPUSCULAR HGB CONC 36 g/dL (31-37); MEAN CORPUSCULAR VOLUME 85 fL (79-100); PLATELET COUNT 137 x10^3/uL (140-400); RED BLOOD COUNT 2.39 x10^6/uL (4.30-5.70); WHITE BLOOD COUNT 7.1 x10^3/uL (4.0-11.0)
[2017-09-30 06:23] LABS: HEMATOCRIT 20.4 % (39.0-53.0)
[2017-09-30 06:29] LABS: ANION GAP 5 (6-14); BLOOD UREA NITROGEN 16 mg/dL (8-26); CALCIUM 8.1 mg/dL (8.5-10.1); CARBON DIOXIDE 26 mmol/L (21-32); CHLORIDE 104 mmol/L (98-107); CREATININE 0.8 mg/dL (0.7-1.3); GLUCOSE 201 mg/dL (70-99); POTASSIUM 3.9 mmol/L (3.5-5.1); SODIUM 135 mmol/L (136-145)
[2017-09-30] MEDS: MAGNESIUM SULFATE 1GM 100 ML IV (07:11)
[2017-09-30] MEDS: POTASSIUM CHLORIDE 20MEQ 50 ML IV ×2 (07:11→08:49)
[2017-09-30] MEDS: ASPIRIN ENTERIC COATED 325 MG TABLET.DR. PO (07:13)
[2017-09-30] MEDS: PANTOPRAZOLE 40 MG TABLET.DR. PO (07:13)
[2017-09-30] MEDS: INSULIN LISPRO 300 UNITS/3 ML INSULN.PEN. SQ ×3 (07:31→17:57)
[2017-09-30 07:36] LABS: POC GLUCOSE 194 mg/dL (70-99)
[2017-09-30] MEDS: PRENATAL MULTIVITAMIN TABLET. PO (08:45)
[2017-09-30] MEDS: METOPROLOL TART IMMED RELEASE 25 MG TABLET. PO ×2 (08:45→20:59)
[2017-09-30] MEDS: CYANOCOBALAMIN (VITAMIN B-12) 1,000 MCG TABLET. PO (08:45)
[2017-09-30] MEDS: SENNOSIDES/DOCUSATE 8.6/50MG TABLET. PO ×2 (08:45→21:00)
[2017-09-30] MEDS: AMIODARONE HCL 200 MG TABLET. PO ×2 (08:46→20:59)
[2017-09-30] MEDS: FERROUS SULFATE ORAL 300 MG/5 ML SOLUTION. PO ×2 (08:46→17:55)
[2017-09-30] MEDS: FAMOTIDINE 20 MG TABLET. PO ×2 (09:00→21:00)
[2017-09-30 10:51] LABS: IMMEDIATE SPIN CROSSMATCH 1 1
[2017-09-30 12:41] LABS: POC GLUCOSE 209 mg/dL (70-99)
[2017-09-30 18:50] LABS: POC GLUCOSE 239 mg/dL (70-99)
[2017-09-30] MEDS: ATORVASTATIN CALCIUM 40 MG TABLET. PO (21:00)
[2017-09-30 21:30] LABS: POC GLUCOSE 177 mg/dL (70-99)
[2017-10-01] MEDS: oxyCODONE/APAP 5/325 1 TAB TABLET PO ×4 (01:22→23:21)
[2017-10-01 04:52] LABS: HEMATOCRIT 22.1 % (39.0-53.0); HEMOGLOBIN 7.8 g/dL (13.0-17.5); MEAN CORPUSCULAR HEMOGLOBIN 30 pg (25-35); MEAN CORPUSCULAR HGB CONC 35 g/dL (31-37); MEAN CORPUSCULAR VOLUME 86 fL (79-100); PLATELET COUNT 146 x10^3/uL (140-400); RED BLOOD COUNT 2.57 x10^6/uL (4.30-5.70); WHITE BLOOD COUNT 6.8 x10^3/uL (4.0-11.0)
[2017-10-01 05:19] LABS: ANION GAP 6 (6-14); BLOOD UREA NITROGEN 21 mg/dL (8-26); CALCIUM 7.8 mg/dL (8.5-10.1); CARBON DIOXIDE 26 mmol/L (21-32); CHLORIDE 102 mmol/L (98-107); CREATININE 0.8 mg/dL (0.7-1.3); GLUCOSE 168 mg/dL (70-99); POTASSIUM 3.9 mmol/L (3.5-5.1); SODIUM 134 mmol/L (136-145)
[2017-10-01 08:19] LABS: POC GLUCOSE 154 mg/dL (70-99)
[2017-10-01] MEDS: FERROUS SULFATE ORAL 300 MG/5 ML SOLUTION. PO ×2 (08:56→17:37)
[2017-10-01] MEDS: METOPROLOL TART IMMED RELEASE 25 MG TABLET. PO ×2 (08:57→20:44)
[2017-10-01] MEDS: FAMOTIDINE 20 MG TABLET. PO ×2 (08:57→20:44)
[2017-10-01] MEDS: CYANOCOBALAMIN (VITAMIN B-12) 1,000 MCG TABLET. PO (08:57)
[2017-10-01] MEDS: AMIODARONE HCL 200 MG TABLET. PO ×2 (08:57→20:44)
[2017-10-01] MEDS: ASPIRIN ENTERIC COATED 325 MG TABLET.DR. PO (08:57)
[2017-10-01] MEDS: SENNOSIDES/DOCUSATE 8.6/50MG TABLET. PO ×2 (08:57→20:44)
[2017-10-01] MEDS: PRENATAL MULTIVITAMIN TABLET. PO (08:57)
[2017-10-01] MEDS: INSULIN LISPRO 300 UNITS/3 ML INSULN.PEN. SQ ×3 (09:08→17:40)
[2017-10-01 11:31] LABS: POC GLUCOSE 213 mg/dL (70-99)
[2017-10-01] MEDS: FUROSEMIDE 20 MG/2 ML VIAL. IVP (14:15)
[2017-10-01 17:43] LABS: POC GLUCOSE 158 mg/dL (70-99)
[2017-10-01 20:38] LABS: POC GLUCOSE 174 mg/dL (70-99)
[2017-10-01] MEDS: ATORVASTATIN CALCIUM 40 MG TABLET. PO (20:43)
[2017-10-02 04:45] LABS: HEMATOCRIT 22.3 % (39.0-53.0); HEMOGLOBIN 7.9 g/dL (13.0-17.5); MEAN CORPUSCULAR HEMOGLOBIN 31 pg (25-35); MEAN CORPUSCULAR HGB CONC 35 g/dL (31-37); MEAN CORPUSCULAR VOLUME 86 fL (79-100); PLATELET COUNT 175 x10^3/uL (140-400); RED BLOOD COUNT 2.59 x10^6/uL (4.30-5.70); RED CELL DISTRIBUTION WIDTH 14.1 % (11.5-14.5); WHITE BLOOD COUNT 5.6 x10^3/uL (4.0-11.0)
[2017-10-02] MEDS: oxyCODONE/APAP 5/325 1 TAB TABLET PO ×5 (05:04→23:48)
[2017-10-02 05:20] LABS: ANION GAP 7 (6-14); BLOOD UREA NITROGEN 17 mg/dL (8-26); CALCIUM 8.2 mg/dL (8.5-10.1); CARBON DIOXIDE 27 mmol/L (21-32); CHLORIDE 104 mmol/L (98-107); CREATININE 0.7 mg/dL (0.7-1.3); GFR 114.3; GLUCOSE 131 mg/dL (70-99); POTASSIUM 3.8 mmol/L (3.5-5.1); SODIUM 138 mmol/L (136-145)
[2017-10-02 05:33] LABS: MAGNESIUM 2.1 mg/dL (1.8-2.4)
[2017-10-02 07:54] LABS: POC GLUCOSE 128 mg/dL (70-99)
[2017-10-02] MEDS: INSULIN LISPRO 300 UNITS/3 ML INSULN.PEN. SQ ×3 (08:00→18:23)
[2017-10-02] MEDS: FERROUS SULFATE ORAL 300 MG/5 ML SOLUTION. PO ×2 (08:04→18:20)
[2017-10-02] MEDS: SENNOSIDES/DOCUSATE 8.6/50MG TABLET. PO ×2 (08:04→21:02)
[2017-10-02] MEDS: ASPIRIN ENTERIC COATED 325 MG TABLET.DR. PO (08:05)
[2017-10-02] MEDS: FAMOTIDINE 20 MG TABLET. PO ×2 (08:05→21:02)
[2017-10-02] MEDS: METOPROLOL TART IMMED RELEASE 25 MG TABLET. PO ×2 (08:05→21:03)
[2017-10-02] MEDS: PRENATAL MULTIVITAMIN TABLET. PO (08:05)
[2017-10-02] MEDS: CYANOCOBALAMIN (VITAMIN B-12) 1,000 MCG TABLET. PO (08:05)
[2017-10-02] MEDS: AMIODARONE HCL 200 MG TABLET. PO ×2 (08:05→21:03)
[2017-10-02 17:58] LABS: POC GLUCOSE 186 mg/dL (70-99)
[2017-10-02 17:58] LABS: POC GLUCOSE 178 mg/dL (70-99)
[2017-10-02 20:57] LABS: POC GLUCOSE 183 mg/dL (70-99)
[2017-10-02] MEDS: ATORVASTATIN CALCIUM 40 MG TABLET. PO (21:03)
[2017-10-03] MEDS: oxyCODONE/APAP 5/325 1 TAB TABLET PO ×3 (05:38→14:39)
[2017-10-03 08:37] LABS: POC GLUCOSE 154 mg/dL (70-99)
[2017-10-03] MEDS: AMIODARONE HCL 200 MG TABLET. PO (08:45)
[2017-10-03] MEDS: ASPIRIN ENTERIC COATED 325 MG TABLET.DR. PO (08:46)
[2017-10-03] MEDS: PRENATAL MULTIVITAMIN TABLET. PO (08:46)
[2017-10-03] MEDS: CYANOCOBALAMIN (VITAMIN B-12) 1,000 MCG TABLET. PO (08:46)
[2017-10-03] MEDS: FERROUS SULFATE ORAL 300 MG/5 ML SOLUTION. PO (08:46)
[2017-10-03] MEDS: FAMOTIDINE 20 MG TABLET. PO (08:46)
[2017-10-03] MEDS: SENNOSIDES/DOCUSATE 8.6/50MG TABLET. PO (08:46)
[2017-10-03] MEDS: METOPROLOL TART IMMED RELEASE 25 MG TABLET. PO (08:46)
[2017-10-03] MEDS: INSULIN LISPRO 300 UNITS/3 ML INSULN.PEN. SQ ×2 (08:49→12:39)
[2017-10-03 12:30] LABS: POC GLUCOSE 201 mg/dL (70-99)
== END 2017-10-03 14:50 | disposition home or self-care (01) | DRG 234 ==
LOC: CCL 06:42 → 2 NORTH 13:30 → 1 WEST ICU 09-28 13:48 → 2 SOUTH 09-30 19:34
PROC: 02100Z9 Bypass Coronary Artery, One Artery from Left Internal Mammary, Open Approach (ICD-10-PCS; 2017-09-28 07:30)
PROC: 021009W Bypass Coronary Artery, One Artery from Aorta with Autologous Venous Tissue, Open Approach (ICD-10-PCS; 2017-09-28 07:30)
PROC: 5A1223Z Performance of Cardiac Pacing, Continuous (ICD-10-PCS; 2017-09-28 07:30)
PROC: 06BQ4ZZ Excision of Left Saphenous Vein, Percutaneous Endoscopic Approach (ICD-10-PCS; 2017-09-28 07:30)
PROC: 03BC0ZZ Excision of Left Radial Artery, Open Approach (ICD-10-PCS; 2017-09-28 07:30)
PROC: 5A1221Z Performance of Cardiac Output, Continuous (ICD-10-PCS; 2017-09-28 07:30)
PROC: 03HY32Z Insertion of Monitoring Device into Upper Artery, Percutaneous Approach (ICD-10-PCS; 2017-09-28 07:30)
PROC: 4A023N7 Measurement of Cardiac Sampling and Pressure, Left Heart, Percutaneous Approach (ICD-10-PCS; principal; 2017-09-28 07:53)
PROC: B2111ZZ Fluoroscopy of Multiple Coronary Arteries using Low Osmolar Contrast (ICD-10-PCS; 2017-09-28 07:53)
PROC: 30233R1 Transfusion of Nonautologous Platelets into Peripheral Vein, Percutaneous Approach (ICD-10-PCS; 2017-09-28 07:53)
PROC: 30233N1 Transfusion of Nonautologous Red Blood Cells into Peripheral Vein, Percutaneous Approach (ICD-10-PCS; 2017-09-28 07:53)
DX: I21.4 Non-ST elevation (NSTEMI) myocardial infarction (principal); E66.01 Morbid (severe) obesity due to excess calories; D64.9 Anemia, unspecified; E11.9 Type 2 diabetes mellitus without complications; E78.5 Hyperlipidemia, unspecified; E87.6 Hypokalemia; I25.110 Atherosclerotic heart disease of native coronary artery with unstable angina pectoris; I10 Essential (primary) hypertension; I25.5 Ischemic cardiomyopathy; I49.3 Ventricular premature depolarization; Z79.02 Long term (current) use of antithrombotics/antiplatelets; Z82.49 Family history of ischemic heart disease and other diseases of the circulatory system; Z86.73 Personal history of transient ischemic attack (TIA), and cerebral infarction without residual deficits; Z90.49 Acquired absence of other specified parts of digestive tract; Z95.5 Presence of coronary angioplasty implant and graft; Z96.659 Presence of unspecified artificial knee joint; Z98.84 Bariatric surgery status; Z68.33 Body mass index [BMI] 33.0-33.9, adult
CPT/HCPCS: 36415; 36600; 71045; 71250; 80048; 80053; 80061; 82803; 82805; 82962; 83735; 85025; 85027; 85347; 85384; 85520; 85610; 85730; 86850; 86900; 86901; 86920; 93005; 93306; 93308; 93320; 93325; 93454; 93880; 93970; 94002; 97110-GP; 97116-GP; 97162-GP; 97164-GP; 97166-GO; 97530-GP; 97535-GO; 99152; 99153; C1769; C1771; C1781; C1892; G0269; J0171; J0282; J0690; J1644; J1815; J1940; J2150; J2250; J2270; J2440; J3010; J3370; J3475; J3480; J3490; J7030; J7040; J7050; J7120; P9016; P9035; P9041; P9045; P9046; S0028

== ENCOUNTER → 2017-10-10 | Outpatient (CLI) | payer BC ==
[2017-10-10 11:38] LABS: ADD MAN DIFF? NO
[2017-10-10 11:58] LABS: BASO # 0.2 x10^3/uL (0.0-0.2); BASO % 2 % (0-3); EOS # 0.6 x10^3/uL (0.0-0.7); EOS % 8 % (0-3); HEMATOCRIT 29.6 % (39.0-53.0); HEMOGLOBIN 10.3 g/dL (13.0-17.5); LYMPH % 24 % (24-48); MEAN CORPUSCULAR HEMOGLOBIN 29 pg (25-35); MEAN CORPUSCULAR HGB CONC 35 g/dL (31-37); MEAN CORPUSCULAR VOLUME 84 fL (79-100); MONO # 0.7 x10^3/uL (0.0-1.1); MONO % 8 % (0-9); NEUT # 4.9 x10^3uL (1.8-7.7); NEUT % 59 % (31-73); PLATELET COUNT 454 x10^3/uL (140-400); RED BLOOD COUNT 3.51 x10^6/uL (4.30-5.70); RED CELL DISTRIBUTION WIDTH 14.2 % (11.5-14.5); WHITE BLOOD COUNT 8.3 x10^3/uL (4.0-11.0)
[2017-10-10 12:05] LABS: ANION GAP 7 (6-14); BLOOD UREA NITROGEN 12 mg/dL (8-26); CALCIUM 9.2 mg/dL (8.5-10.1); CARBON DIOXIDE 28 mmol/L (21-32); CHLORIDE 101 mmol/L (98-107); CREATININE 0.8 mg/dL (0.7-1.3); GLUCOSE 153 mg/dL (70-99); POTASSIUM 4.1 mmol/L (3.5-5.1); SODIUM 136 mmol/L (136-145)
== END | disposition home or self-care (01) ==
LOC: LAB 11:21
DX: R23.1 Pallor (principal)
CPT/HCPCS: 36415; 80048; 85025

== ENCOUNTER → 2017-10-21 | Outpatient (CLI) | payer BC | END | disposition home or self-care (01) | LOC: RAD 11:47 | DX: Z48.812 Encounter for surgical aftercare following surgery on the circulatory system (principal); Z95.1 Presence of aortocoronary bypass graft | CPT/HCPCS: 71046 ==

== ENCOUNTER → 2018-07-21 | Outpatient (CLI) | payer BC ==
[2017-10-03 11:00] VITALS: BP 107/56
[~2018-07-21] MED LIST changes: +ASPI325T11 PO; +ATOR40TA59 PO; +CYAN10005 PO; +FERR325T14 PO; +HYDR-2145 PO; -HYDR25TA9 PO; +LOSA100T14 PO; +MELO15TA23 PO; +METF750T2 PO; -METF850T2 PO; +METF850T8 PO; +METO25TA4 PO; +OXYC1TAB15 PO; +PANT20TA2 PO; +PREN1TAB13 PO; -REGADENOSON 0.4 MG/5 ML DISP.SYRIN. IV ONE; +SENN-37 PO
--- NOTE | 2018-07-21 09:05 | CARD ---
MR#: [id number] Date of Study: 07/21/2018 Ordering Physician: ANNIE HANSEN, Referring Physician: ANNIE HANSEN, Tech: Madeline Hawley USHA APPROVED REPORT EXAM: Two-dimensional and M-mode echocardiogram with Doppler and color Doppler. Other Information Quality : Technically LimitedHR: 62bpm Rhythm : NSRTechnically limited study due to body habitus and CABG. INDICATION post CABG Surgery/Intervention CABD DIMENSIONS RVDd3.4 (2.9-3.5cm)Left Atrium(2D)5.4 (1.6-4.0cm) IVSd1.4 (0.7-1.1cm)Aortic Root(2D)3.8 (2.0-3.7cm) LVDd5.3 (3.9-5.9cm)LVOT Diameter2.7 (1.8-2.4cm) PWd1.3 (0.7-1.1cm)LVDs3.7 (2.5-4.0cm) FS (%) 29.5 %SV75.3 ml LVEF(%)56.1 (>50%) M-Mode DIMENSIONS Left Atrium(MM)3.87 (2.5-4.0cm)Aortic Root4.10 (2.2-3.7cm) Aortic Valve AoV Peak Josafat.153.4cm/sAoV VTI38.2cm AO Peak GR.9.4mmHgLVOT Peak Josafat.80.8cm/s AO Mean GR.5mmHgAVA (VMAX)2.95cm2 SAM (VTI)2.90cm2 Mitral Valve MV E Hjebjuca06.3cm/sMV DECEL OYDB492kz MV A Uxktopoc69.3cm/sE/A Ratio0.7 MV A Uczsksdr114yh Pulmonary Valve PV Peak Poizfhnx85.6cm/s Pulmonary Vein S1 Itqhawxc02.0cm/sD2 Yzeklhxu27.0cm/s PVa pxhzxxru581uwim LEFT VENTRICLE The left ventricle is normal size. There is mild concentric left ventricular hypertrophy. The left ve ntricular systolic function is normal. The Ejection Fraction is 55-60%. There is normal LV segmental wall motion. Transmitral Doppler flow pattern is Grade I-abnormal relaxation pattern. RIGHT VENTRICLE The right ventricle is normal size. There is normal right ventricular wall thickness. The right ventr icular systolic function is normal. ATRIA The left atrium is moderately dilated. The right atrium is moderately dilated. The interatrial septum is intact with no evidence for an atrial septal defect or patent foramen ovale as noted on 2-D or Do ppler imaging. AORTIC VALVE The non coronary cusp is calcified. The aortic valve is trileaflet. Doppler and Color Flow revealed n o significant aortic regurgitation. There is no significant aortic valvular stenosis. MITRAL VALVE Mitral annular calcification is mild. There is no evidence of mitral valve prolapse. There is no mitr al valve stenosis. Doppler and Color Flow revealed no mitral valve regurgitation noted. TRICUSPID VALVE The tricuspid valve is normal in structure and function. Doppler and Color Flow revealed trace tricus pid regurgitation. There is no tricuspid valve prolapse or vegetation. There is no tricuspid valve st enosis. PULMONIC VALVE The pulmonic valve is not well visualized. Doppler and Color Flow revealed trace to mild pulmonic zak vular regurgitation. There is no pulmonic valvular stenosis. GREAT VESSELS The aortic root is mildly enlarged. The ascending aorta is Mildly dilated. The IVC is normal in size and collapses >50% with inspiration. PERICARDIAL EFFUSION There is no evidence of significant pericardial effusion. Critical Notification Critical Value: No <Conclusion> The left ventricular systolic function is normal. The Ejection Fraction is 55-60%. There is normal LV segmental wall motion. Transmitral Doppler flow pattern is Grade I-abnormal relaxation pattern. The left atrium is moderately dilated. Doppler and Color Flow revealed trace tricuspid regurgitation. There is no evidence of significant pericardial effusion. Signed by : Marin Mabry, Electronically Approved : 07/21/2018 09:04:11
== END | disposition home or self-care (01) ==
LOC: ECHO 07:05
PROVIDERS: ATTEND Internal Medicine Cardiovascular Disease
DX: Z48.812 Encounter for surgical aftercare following surgery on the circulatory system (principal); I25.10 Atherosclerotic heart disease of native coronary artery without angina pectoris; I51.7 Cardiomegaly; R00.8 Other abnormalities of heart beat; Z95.1 Presence of aortocoronary bypass graft
CPT/HCPCS: 93306

== ENCOUNTER 2019-06-09 16:39 | Emergency (ER) | payer BC ==
[~2019-06-09] VITALS: Ht 180.3 cm; Wt 113.0 kg
[~2019-06-09 16:39] MED LIST changes: +CYAN-25 PO; -CYAN10005 PO; -METF750T2 PO; +METF750T39 PO
[2019-06-09 16:50] VITALS: BP 107/56
--- NOTE | 2019-06-09 17:53 | PHYS DOC ---
Past Medical History Past Medical History: Diabetes-Type II, Hypertension Past Surgical History: Coronary Bypass Surgery, Other Additional Past Surgical Histo: stent placementx4(2008) Alcohol Use: None Drug Use: None Adult General Chief Complaint Chief Complaint: ANIMAL BITE HPI HPI Patient is a 63 year old male who presents with dogbite to the dorsal left hand at approximately 4 inches long and 1cm gaping. Bleeding controlled. Animal control has come to see the patient . Dogs shots are up to date. Tetanus his 5 years old. The bite occurred prior to arrival when their grand daugther did not have the basement door closed as asked to keep their dog and the friends dog as they did not know each other. The two dogs began to fight and the patient tried to break them up and that is when he got bit. Review of Systems Review of Systems Integument: Left hand dog bite. Denies rash or skin lesions [] All other systems were reviewed and found to be within normal limits, except as documented in this note. Current Medications Current Medications Current Medications Medications (Trade) Dose Ordered Sig/Deion Start Time Stop Time Status Last Admin Dose Admin Amoxicillin/ Clavulanate Potassium (Augmentin 875/ 125mg) 1 tab 1X ONCE 06/09/19 18:00 06/09/19 18:01 DC 06/09/19 18:03 1 TAB Lidocaine HCl (Xylocaine 1% Pf 30ml Vial) 30 ml 1X ONCE 06/09/19 18:00 06/09/19 18:01 DC 06/09/19 18:00 30 ML Allergies Allergies Allergies Coded Allergies Type Severity Reaction Last Updated Verified No Known Drug Allergies 07/04/17 No Physical Exam Physical Exam Constitutional: Well developed, well nourished, no acute distress, non-toxic appearance. [] HENT: Normocephalic, atraumatic, bilateral external ears normal, oropharynx moist, no oral exudates, nose normal. [] Eyes: PERRLA, EOMI, conjunctiva normal, no discharge. [] Neck: Normal range of motion, no tenderness, supple, no stridor. [] Cardiovascular:Heart rate regular rhythm, no murmur [] Lungs & Thorax: Bilateral breath sounds clear to auscultation [] Abdomen: Bowel sounds normal, soft, no tenderness, no masses, no pulsatile masses. [] Skin: Laceration and 2 punctures from dog bite to left dorsal hand. Warm, dry, no erythema, no rash. [] Back: No tenderness, no CVA tenderness. [] Extremities: No tenderness, no cyanosis, no clubbing, ROM intact, no edema. [] Neurologic: Alert and oriented X 3, normal motor function, normal sensory function, no focal deficits noted. [] Psychologic: Affect normal, judgement normal, mood normal. [] Current Patient Data Vital Signs Vital Signs Date Time Temp Pulse Resp B/P (MAP) Pulse Ox O2 Delivery O2 Flow Rate FiO2 06/09/19 16:50 98.4 70 16 107/56 (73) 95 Room Air 98.4 EKG EKG [] Radiology/Procedures Radiology/Procedures [] Course & Med Decision Making Course & Med Decision Making Rates his pain a 5/10. Refuses any pain medication as this time. Patient has 2 small puncture wounds to the radial side of the dorsal hand. No signs of infection at this time, scant blood, no deformity of bruising. Pain to palpation over the bite. Can wiggle all fingers. Denies numbness or tingling. I have spoken to Dr Barger about the care plan for this patient. He states not to do tight stitches and make them farther apart. The patient also received first dose of Augmentin in the ED. Patient sent home with Augmentin. Laceration Repair by me: Anesthesia: 1% lidocaine locally Location: Left dorsal hand Tendon/Joint/Nerves: No injury Foreign body: None detected after copious irrigation with saline and chlorhexidine and exploration Technique: 3 Simple Interrupted Sutures Complexity: No subcutaneous sutures/mucosal repair/edge excision Post Closure Length: 4 inches Patient's bleeding was easily controlled in the department and there is no indication of anemia. No evidence of compartment syndrome, neurologic injury, vascular injury, open joint, tendon laceration, or foreign body. Patient is appropriate for outpatient follow up. 48 hour wound check. Scar minimization instructions given. Dragon Disclaimer Dragon Disclaimer This electronic medical record was generated, in whole or in part, using a voice recognition dictation system. Departure Departure Impression: Primary Impression: Laceration Additional Impression: Dog bite Disposition: HOME, SELF-CARE Condition: STABLE Referrals: THERESA OCHOA MD (PCP) Patient Instructions: Animal Bite, Laceration Care, Adult Additional Instructions: Return in 10 days for suture removal or you can follow up with your doctor. Keep area clean, covered and dry. Return sooner if signs of infection. Finish all of antibiotic prescribed. Scripts Amoxicillin/Potassium Clav (AUGMENTIN 875-125 TABLET) 1 Each Tablet 1 TAB PO BID for 10 Days, #20 TAB 0 Refills Prov: MARIA FERNANDA REYNOLDS APRN 06/09/19 Problem Qualifiers Additional Impression: Dog bite Encounter type: initial encounter Qualified Codes: W54.0XXA - Bitten by dog, initial encounter MARIA FERNANDA REYNOLDS APRN Jun 09, 2019 17:53
[2019-06-09] MEDS ORDERED: AMOX1TAB61 PO (17:59)
[2019-06-09] MEDS ORDERED: LIDOCAINE 1% PF 30 ML VIAL. INJ ONE (18:00)
[2019-06-09] MEDS ORDERED: AMOXICILLIN/K CLAV 875/125MG TABLET. PO ONE (18:00)
--- NOTE | 2019-06-09 18:59 | RAD ---
HAND LEFT 3V DATE: 06/09/2019 5:47 PM INDICATION: Dog bite COMPARISON: None. FINDINGS: Bones: There is no evidence of acute fracture or dislocation. Joints: Mild degenerative changes of the IP joints and first CMC joint. Miscellaneous: Extensive atherosclerotic vascular calcifications. Surgical clip along the radial aspect of the distal radius. IMPRESSION: No acute osseous abnormal. Electronically signed by: Kirk Fry MD (06/09/2019 6:56 PM) [facility]
== END 2019-06-09 19:00 | disposition home or self-care (01) ==
LOC: ER 16:39
DX: S61.452A Open bite of left hand, initial encounter (principal); E11.9 Type 2 diabetes mellitus without complications; I10 Essential (primary) hypertension; Z98.890 Other specified postprocedural states; W54.0XXA Bitten by dog, initial encounter; Y93.89 Activity, other specified; Y92.89 Other specified places as the place of occurrence of the external cause; Y99.8 Other external cause status
CPT/HCPCS: 12004; 73130; 99284

== ENCOUNTER → 2020-01-18 | Outpatient (CLI) | payer BC ==
[~2020-01-18] MED LIST changes: +AMOX1TAB61 PO
--- NOTE | 2020-01-18 15:52 | KCIC ---
EXAM: Right knee, 3 views. HISTORY: Pain. COMPARISON: None. FINDINGS: 3 views of the right knee are obtained. There is tricompartmental spurring. There is trace joint fluid. There are are extensive vascular calcifications. IMPRESSION: Mild tricompartmental osteoarthritis of the right knee with trace joint fluid. Electronically signed by: Leah Resendiz MD (01/18/2020 3:49 PM) [id number]
== END | disposition home or self-care (01) ==
LOC: KCIC 15:18
PROVIDERS: ATTEND Anesthesiology
DX: M77.31 Calcaneal spur, right foot (principal); M25.461 Effusion, right knee; M61.9 Calcification and ossification of muscle, unspecified
CPT/HCPCS: 73562

== ENCOUNTER 2021-10-02 07:46 | Inpatient (IN) | payer BC ==
[~2021-10-02] VITALS: Ht 182.9 cm; Wt 136.8 kg
[2021-10-02] VITALS (38 sets, daily range): BP systolic 80–124; BP diastolic 45–72
[2021-10-02] MEDS ORDERED: IV NORMAL SALINE 1000ML BAG 1,000 ML IV ONE ×3 (08:15→09:00)
[2021-10-02] MEDS ORDERED: AMIODARONE 150 MG in IV DEXTROSE 5% 100ML 100 ML IV ONE (08:15)
[2021-10-02] MEDS ORDERED: PANTOPRAZOLE IV PUSH 40 MG VIAL. IVP ONE (08:15)
[2021-10-02 08:21] LABS: BASO # 0.1 x10^3/uL (0.0-0.2); BASO % 1 % (0-3); EOS # 0.2 x10^3/uL (0.0-0.7); EOS % 2 % (0-3); HEMATOCRIT 21.5 % (39.0-53.0); LYMPH # 3.2 x10^3/uL (1.0-4.8); LYMPH % 35 % (24-48); MEAN CORPUSCULAR HEMOGLOBIN 27 pg (25-35); MEAN CORPUSCULAR HGB CONC 33 g/dL (31-37); MEAN CORPUSCULAR VOLUME 83 fL (79-100); MONO # 0.8 x10^3/uL (0.0-1.1); MONO % 9 % (0-9); NEUT # 4.9 x10^3/uL (1.8-7.7); NEUT % 53 % (31-73); PLATELET COUNT 217 x10^3/uL (140-400); RED CELL DISTRIBUTION WIDTH 15.4 % (11.5-14.5); WHITE BLOOD COUNT 9.2 x10^3/uL (4.0-11.0)
[2021-10-02 08:37] LABS: ALBUMIN 3.1 g/dL (3.4-5.0); ALBUMIN/GLOBULIN RATIO 1.1 (1.0-1.7); CALCIUM 8.7 mg/dL (8.5-10.1); CREATININE 1.5 mg/dL (0.7-1.3); GFR 46.8; MAGNESIUM 1.8 mg/dL (1.8-2.4); POTASSIUM 3.5 mmol/L (3.5-5.1); TOTAL BILIRUBIN 0.7 mg/dL (0.2-1.0)
[2021-10-02] MEDS ORDERED: INSULIN REGULAR 100 UNIT/ML 3ML VIAL. SQ ONE (08:45)
[2021-10-02] MEDS: AMIODARONE 450 MG in IV DEXTROSE 5% 250 ML IV PRN ×2 (08:54→18:50)
[2021-10-02] MEDS ORDERED: NOREPINEPHRINE VIAL 8 MG in IV DEXTROSE 5% 250 ML IV ONE (09:15)
[2021-10-02] MEDS: PANTOPRAZOLE SODIUM IV DRIP 80 MG in IV NORMAL SALINE 100ML 100 ML IV SCH ×2 (09:20→18:49)
[2021-10-02] MEDS ORDERED: fentaNYL PF VIAL 100 MCG/2 ML VIAL IVP ONE (09:30)
[2021-10-02] MEDS ORDERED: ETOMIDATE 20 MG/10 ML VIAL. IV ONE (09:30)
[2021-10-02 09:33] LABS: FECAL OB PT POSITIVE (NEG)
[2021-10-02 09:54] LABS: HYALINE CASTS, URINE FEW /HPF
[2021-10-02 09:55] LABS: BACTERIA,URINE 0 /HPF (0-FEW); RBC,URINE 0 /HPF (0-2)
--- NOTE | 2021-10-02 10:00 | PDOC2 ---
CARDIAC CONSULT DATE OF CONSULT Date of Consult DATE: 10/02/21 TIME: 09:48 REASON FOR CONSULT Reason for Consult: Arrhythmia REFERRING PHYSICIAN Referring Physician: Micheal SOURCE Source: Chart review, Patient HISTORY OF PRESENT ILLNESS HISTORY OF PRESENT ILLNESS This is a 66 yo male admitted for complains of shortness of breath. He was seen in our office yesterday and and complains of black stool and palpitations to w [facility] blood work was ordered and MCOT was placed. This morning he was SOA and still having black stools and having left chest sharp pain. He was then noted with AFIB RVR with abberant conduction and feeling dizzy with low BP. He is feeling weak and presently pale. No nausea or vomiting. He takes full dose ASA and also meloxicam with past hx of gastric bypass PAST MEDICAL HISTORY Cardiovascular: CAD, HTN, Hyperlipidemia Pulmonary: No pertinent hx CENTRAL NERVOUS SYSTEM: TIA GI: GERD Heme/Onc: Anemia NOS Hepatobiliary: Cholelithiasis Musculoskeletal: Osteoarthritis Rheumatologic: No pertinent hx Infectious disease: No pertinent hx ENT: No pertinent hx Endocrine: Diabetes (2) PAST SURGICAL HISTORY Past Surgical History: Appendectomy, Arthroscopy (knee and wrist), CABG (FREEMAN to LAD and SVG to OM), Other (gastric bypass; PCI) FAMILY HISTORY Family History: Diabetes SOCIAL HISTORY Smoke: No ALCOHOL: none Drugs: None Lives: Alone CURRENT MEDICATIONS CURRENT MEDICATIONS Current Medications Medications (Trade) Dose Ordered Sig/Deion Route PRN Reason Start Time Stop Time Status Last Admin Dose Admin Sodium Chloride 1,000 ml @ 1,000 mls/hr 1X ONCE IV 10/02/21 08:15 10/02/21 09:14 DC 10/02/21 08:15 Pantoprazole Sodium (PROTONIX VIAL for IV PUSH) 80 mg 1X ONCE IVP 10/02/21 08:15 10/02/21 08:20 DC 10/02/21 08:27 Amiodarone HCl 150 mg/Dextrose 103 ml @ 618 mls/hr 1X ONCE IV 10/02/21 08:15 10/02/21 08:24 DC 10/02/21 08:38 Amiodarone HCl 450 mg/Dextrose 259 ml @ 34.533 mls/ hr CONT PRN IV SEE I/O RECORD 10/02/21 08:15 10/03/21 08:12 10/02/21 08:54 Sodium Chloride 1,000 ml @ 1,000 mls/hr 1X ONCE IV 10/02/21 08:30 10/02/21 09:29 DC 10/02/21 08:30 Sodium Chloride 1,000 ml @ 1,000 mls/hr 1X ONCE IV 10/02/21 09:00 10/02/21 09:59 10/02/21 08:45 Insulin Human Regular (HumuLIN R VIAL) 10 unit 1X ONCE SQ 10/02/21 08:45 10/02/21 08:56 DC 10/02/21 09:17 Pantoprazole Sodium 80 mg/ Sodium Chloride 100 ml @ 10 mls/hr Q10H IV 10/02/21 09:00 10/02/21 09:20 Norepinephrine Bitartrate 8 mg/ Dextrose 258 ml @ 26.374 mls/ hr 1X ONCE IV 10/02/21 09:15 10/02/21 19:01 10/02/21 09:31 ALLERGIES ALLERGIES: Coded Allergies: No Known Drug Allergies (Unverified , 10/02/21) ROS Review of System 14 point ROS evaluated with pertinent positives noted per HPI PHYSICAL EXAM General: Oriented X3, Cooperative, moderate distress HEENT: Atraumatic, Mucous membr. moist/pink Lungs: Other (diminished bases) Heart: Other (AFIB RVR) Abdomen: Soft, No tenderness Extremities: No cyanosis, No edema Skin: No breakdown, No significant lesion, Other (pale) Neuro: Normal speech, Sensation intact Psych/Mental Status: Other (flat affect, drowsy) MUSCULOSKELETAL: Osteoarthritic changes both hands VITALS/I&O VITALS/I&O: Vital Signs Date Time Temp Pulse Resp B/P (MAP) Pulse Ox O2 Delivery O2 Flow Rate FiO2 10/02/21 09:36 97.6 143 101/60 (74) 97.6 10/02/21 09:32 28 96 Nasal Cannula 2.0 LABS Lab: Laboratory Tests Test 10/02/21 08:08 10/02/21 08:46 10/02/21 09:00 White Blood Count 9.2 x10^3/uL (4.0-11.0) Red Blood Count 2.60 x10^6/uL (4.30-5.70) L Hemoglobin 7.0 g/dL (13.0-17.5) *L Hematocrit 21.5 % (39.0-53.0) L Mean Corpuscular Volume 83 fL (79-100) Mean Corpuscular Hemoglobin 27 pg (25-35) Mean Corpuscular Hemoglobin Concent 33 g/dL (31-37) Red Cell Distribution Width 15.4 % (11.5-14.5) H Platelet Count 217 x10^3/uL (140-400) Neutrophils (%) (Auto) 53 % (31-73) Lymphocytes (%) (Auto) 35 % (24-48) Monocytes (%) (Auto) 9 % (0-9) Eosinophils (%) (Auto) 2 % (0-3) Basophils (%) (Auto) 1 % (0-3) Neutrophils # (Auto) 4.9 x10^3/uL (1.8-7.7) Lymphocytes # (Auto) 3.2 x10^3/uL (1.0-4.8) Monocytes # (Auto) 0.8 x10^3/uL (0.0-1.1) Eosinophils # (Auto) 0.2 x10^3/uL (0.0-0.7) Basophils # (Auto) 0.1 x10^3/uL (0.0-0.2) Prothrombin Time 15.0 SEC (11.7-14.0) H Prothrombin Time INR 1.2 (0.8-1.1) H Activated Partial Thromboplast Time 27 SEC (24-38) Sodium Level 136 mmol/L (136-145) Potassium Level 3.5 mmol/L (3.5-5.1) Chloride Level 100 mmol/L (98-107) Carbon Dioxide Level 14 mmol/L (21-32) L Anion Gap 22 (6-14) H Blood Urea Nitrogen 48 mg/dL (8-26) H Creatinine 1.5 mg/dL (0.7-1.3) H Estimated GFR (Cockcroft-Gault) 46.8 BUN/Creatinine Ratio 32 (6-20) H Glucose Level 520 mg/dL (70-99) *H Calcium Level 8.7 mg/dL (8.5-10.1) Magnesium Level 1.8 mg/dL (1.8-2.4) Total Bilirubin 0.7 mg/dL (0.2-1.0) Aspartate Amino Transferase (AST) 39 U/L (15-37) H Alanine Aminotransferase (ALT) 23 U/L (16-63) Alkaline Phosphatase 85 U/L (46-116) Creatine Kinase 163 U/L (39-308) Creatine Kinase MB (Mass) 9.3 ng/mL (0.0-3.6) H Creatine Kinase MB Relative Index 5.7 % (0-4) H Troponin I High Sensitivity 1580 ng/L (4-75) H Total Protein 6.0 g/dL (6.4-8.2) L Albumin 3.1 g/dL (3.4-5.0) L Albumin/Globulin Ratio 1.1 (1.0-1.7) Lipase 67 U/L (73-393) L SARS-CoV-2 Antigen (Rapid) Negative (NEGATIVE) Stool Occult Blood Positive (NEG) Laboratory Tests 10/02/21 08:08 Laboratory Tests 10/02/21 08:08 ASSESSMENT/PLAN ASSESSMENT/PLAN 1. GI bleed with melena 2. Anemia 3. AFIB RVR with abberant conduction. New finding. Presently has MCOT 4. Hypotension: multifactorial with above culprits 5. Atypical chest pain 6. NSTEMI: suspect type 2 demand mediated 7. Hx of gastric bypass with ASA and meloxicam use 8. DM2: per PCP 9. HLP 10. Hx of TIA 11. CAD: CABG in 2018 12. Morbid obesity Recommendations 1. Amiodarone bolus given. Start drip. DC CVN discussed with ED MD 2. Consult GI 3. Hold ASA. No further meloxicam 4. Transfuse PRBC 5. Hold BP meds 6. Transfer to ICU start on levophed. 7. JOCELYNE DICKEY [employer] October 02, 2021 10:00
[2021-10-02] MEDS ORDERED: DEXTROSE 50% 25 GM / 50ML DISP.SYRIN. IV PRN ×2 (10:15→22:30)
[2021-10-02] MEDS ORDERED: IV NORMAL SALINE 1000ML BAG 1,000 ML IV SCH ×2 (10:15→11:15)
[2021-10-02] MEDS ORDERED: ONDANSETRON PF 4 MG/2 ML VIAL. IVP PRN (10:15)
--- NOTE | 2021-10-02 10:17 | PDOC1 ---
History and Physical Date of Admission Date of Admission DATE: 10/02/21 TIME: 10:16 Identification/Chief Complaint Chief Complaint Presyncope, GI bleed Source Source: Caregiver, Chart review, Patient History of Present Illness History of Present Illness Mr Narvaez is a 66 yo male w/ PMHx dk-en-y gastric bypass (in [place] 2011), CAD s/p stenting x4 2007 and CABG 2018 (FREEMAN to LAD and SVG to OM), DM2, HTN, HLD, MUNIRA on CPAP who comes to ED via private vehicle per his for large melanotic stools for the past day. He noted shortness of breath, diaphoresis, pale. He has been having dark stools and had a large loose dark stool yesterday after a cardiology appointment where he had a mobile cardiac campus monitor patch (MCOT) placed and ordered blood work. Today he had a massive bloody bowel movement that was foul smelling, dark and loose and had a near syncopal episode per his and c/o some left sided sharp chest pain. He is feeling weak and presently pale. No nausea or vomiting. He takes full dose ASA and also meloxicam. In ED was noted in wide complex tachycardia around 0800 and started on amiodarone, on repeat EKG still notably in wide complex tachycardia an hour later, was cardioverted 100J successfully into afib with aberrant conduction. Labs reveal Hb of 7 and WBC 9.2, platelets 217, NA 136, K3.5, BUN 48, CR 1.5 HCO3 14, anion gap 22, glucose 520, calcium 8.7, magnesium 1.8, bilirubin 0.7, AST 39, ALT 23, alkaline phosphatase 85, CK 163, high-sensitivity troponin is 1580, albumin 3.1, lipase 67, INR 1.2, PTT 27, urinalysis with glucosuria, hemoglobin positive, rapid COVID-19 negative Admitted to ICU for further care. Past Medical History Cardiovascular: CAD, HTN, Hyperlipidemia Pulmonary: No pertinent hx CENTRAL NERVOUS SYSTEM: TIA GI: GERD Heme/Onc: Anemia NOS Hepatobiliary: Cholelithiasis Musculoskeletal: Osteoarthritis Rheumatologic: No pertinent hx Infectious disease: No pertinent hx ENT: No pertinent hx Endocrine: Diabetes (2) Past Surgical History Past Surgical History: Appendectomy, Arthroscopy (knee and wrist), CABG (FREEMAN to LAD and SVG to OM), Other (gastric bypass; PCI) Family History Family History: Diabetes Social History Smoke: No ALCOHOL: none Drugs: None Current Medications Current Medications Current Medications Sodium Chloride 1,000 ml @ 1,000 mls/hr 1X ONCE IV Last administered on 10/02/21at 08:15; Start 10/02/21 at 08:15; Stop 10/02/21 at 09:14; Status DC Pantoprazole Sodium (PROTONIX VIAL for IV PUSH) 80 mg 1X ONCE IVP Last administered on 10/02/21at 08:27; Start 10/02/21 at 08:15; Stop 10/02/21 at 08:20; Status DC Amiodarone HCl 150 mg/Dextrose 103 ml @ 618 mls/hr 1X ONCE IV Last administered on 10/02/21at 08:38; Start 10/02/21 at 08:15; Stop 10/02/21 at 08:24; Status DC Amiodarone HCl 450 mg/Dextrose 259 ml @ 34.533 mls/ hr CONT PRN IV SEE I/O RECORD Last administered on 10/02/21at 08:54; Start 10/02/21 at 08:15; Stop 10/03/21 at 08:12 Sodium Chloride 1,000 ml @ 1,000 mls/hr 1X ONCE IV Last administered on 10/02/21at 08:30; Start 10/02/21 at 08:30; Stop 10/02/21 at 09:29; Status DC Sodium Chloride 1,000 ml @ 1,000 mls/hr 1X ONCE IV Last administered on 10/02/21at 08:45; Start 10/02/21 at 09:00; Stop 10/02/21 at 09:59; Status DC Insulin Human Regular (HumuLIN R VIAL) 10 unit 1X ONCE SQ Last administered on 10/02/21at 09:17; Start 10/02/21 at 08:45; Stop 10/02/21 at 08:56; Status DC Pantoprazole Sodium 80 mg/ Sodium Chloride 100 ml @ 10 mls/hr Q10H IV Last administered on 10/02/21at 09:20; Start 10/02/21 at 09:00 Norepinephrine Bitartrate 8 mg/ Dextrose 258 ml @ 26.374 mls/ hr 1X ONCE IV Last administered on 10/02/21at 09:31; Start 10/02/21 at 09:15; Stop 10/02/21 at 19:01 Etomidate (Amidate) 10 mg 1X ONCE IV Last administered on 10/02/21at 09:52; Start 10/02/21 at 09:30; Stop 10/02/21 at 09:32; Status DC Fentanyl Citrate (Fentanyl 2ml Vial) 100 mcg 1X ONCE IVP Last administered on 10/02/21at 09:52; Start 10/02/21 at 09:30; Stop 10/02/21 at 09:32; Status DC Ondansetron HCl (Zofran) 4 mg PRN Q8HRS PRN IVP NAUSEA/VOMITING; Start 10/02/21 at 10:15; Stop 10/03/21 at 10:14 Sodium Chloride 1,000 ml @ 100 mls/hr Q10H IV ; Start 10/02/21 at 10:15; Stop 10/03/21 at 10:14 Insulin Human Lispro (HumaLOG) 0-5 UNITS TIDWMEALS SQ ; Start 10/02/21 at 12:00; Status UNV Dextrose (Dextrose 50%-Water Syringe) 12.5 gm PRN Q15MIN PRN IV SEE COMMENTS; Start 10/02/21 at 10:15; Status UNV Active Scripts Active Augmentin 875-125 Tablet (Amoxicillin/Potassium Clav) 1 Each Tablet 1 Tab PO BID 10 Days Senokot-S Tablet (Sennosides/Docusate Sodium) 1 Each Tablet 1 Tab PO BID Percocet 5-325 Mg Tablet (Oxycodone/Acetaminophen) 1 Each Tablet 1-2 Tab PO Q4-6HRS Ferrous Sulfate 325 Mg Tablet 325 Mg PO TIDAFTMEAL 90 Days Vitamin B-12 (Cyanocobalamin (Vitamin B-12)) 1,000 Mcg Tablet 1,000 Mcg PO DAILY Tablet ( Vit#96/Ferrous Fum/Fa) 1 Each Tablet 1 Tab PO DAILY Aspirin Ec (Aspirin) 325 Mg Tablet. 325 Mg PO DAILYWBKFT Metoprolol Tartrate 25 Mg Tablet 25 Mg PO BID Atorvastatin Calcium 40 Mg Tablet 40 Mg PO QHS Reported Protonix (Pantoprazole Sodium) 20 Mg Tablet. 40 Mg PO DAILY Metformin Hcl Er (Metformin Hcl) 750 Mg Tab.er.24h 750 Mg PO DAILYWBKFT Hydrochlorothiazide Tablet (Hydrochlorothiazide) 25 Mg Tablet 25 Mg PO DAILY Allergies Allergies: Coded Allergies: No Known Drug Allergies (Unverified , 10/02/21) ROS General: YES: Fatigue, Malaise; No: Chills, Night Sweats, Appetite, Other PSYCHOLOGICAL ROS: No: Anxiety, Behavioral Disorder, Concentration difficultie, Decreased libido, Depression, Disorientation, Hallucinations, Hostility, Irritablity, Memory difficulties, Mood Swings, Obsessive thoughts, Physical abuse, Sexual abuse, Sleep disturbances, Suicidal ideation, Other Eyes: No Blurry vision, No Decreased vision, No Double vision, No Dry eyes, No Excessive tearing, No Eye Pain, No Itchy Eyes, No Loss of vision, No Photophobia, No Scotomata, No Uses contacts, No Uses glasses, No Other HEENT: No: Heacaches, Visual Changes, Hearing change, Nasal congestion, Nasal discharge, Oral lesions, Sinus pain, Sore Throat, Epistaxis, Sneezing, Snoring, Tinnitus, Vertigo, Vocal changes, Other ALLERGY AND IMMUNOLOGY: No: Hives, Insect Bite Sensitivity, Itchy/Watery Eyes, Nasal Congestion, Post Nasal Drip, Seasonal Allergies, Other Hematological and Lymphatic: YES: Pallor; No: Bleeding Problems, Blood Clots, Blood Transfusions, Brusing, Night Sweats, Swollen Lymph Nodes, Other ENDOCRINE: No: Breast Changes, Galactorrhea, Hair Pattern Changes, Hot Flashes, Malaise/lethargy, Mood Swings, Palpitations, Polydipsia/polyuria, Skin Changes, Temperature Intolerance, Unexpected Weight Changes, Other Breast: No New/Changing Breast Lumps, No Nipple changes, No Nipple discharge, No Other Respiratory: YES: Shortness of breath, SOB with excertion; No: Cough, Hemoptysis, Orthopnea, Pleuritic Pain, Sputum Changes, Stridor, Tachypnea, Wheezing, Other Cardiovascular: yes Chest Pain; No Palpitations, No Orthopnea, No Paroxysmal Noc. Dyspnea, No Edema, No Lt Headedness, No Other Gastrointestinal: Yes Abdominal Pain, Yes Melena; No Nausea, No Vomiting, No Diarrhea, No Constipation, No Hematochezia, No Other Genitourinary: No Dysuria, No Frequency, No Incontinence, No Hematuria, No Retention, No Discharge, No Urgency, No Pain, No Flank Pain, No Other, No , No , No , No , No , No , No Musculoskeletal: No Gait Disturbance, No Joint Pain, No Joint Stiffness, No Joint Swelling, No Muscle Pain, No Muscular Weakness, No Pain In:, No Swelling In:, No Other Neurological: No Behavorial Changes, No Bowel/Bladder ControlChng, No Confusion, No Dizziness, No Gait Disturbance, No Headaches, No Impaired Coord/balance, No Memory Loss, No Numbness/Tingling, No Seizures, No Speech Problems, No Tremors, No Visual Changes, No Weakness, No Other Skin: No Dry Skin, No Eczema, No Hair Changes, No Lumps, No Mole Changes, No Mottling, No Nail Changes, No Pruritus, No Rash, No Skin Lesion Changes, No Other, No Acne Physical Exam General: Alert, Cooperative, severe distress HEENT: Atraumatic, PERRLA, EOMI, Other (pale mucosa) Lungs: Other (bialteral crackles) Heart: irregularly irregular Abdomen: Normal bowel sounds, Soft, No hepatosplenomegaly, No masses, Other (diffusely tender) Extremities: No clubbing, No cyanosis, Normal pulses, No tenderness/swelling Skin: No rashes, No breakdown, No significant lesion Neuro: Strength at 5/5 X4 ext, Normal tone, Cranial nerves 3-12 NL, Reflexes 2+ Vitals Vitals Vital Signs Date Time Temp Pulse Resp B/P (MAP) Pulse Ox O2 Delivery O2 Flow Rate FiO2 10/02/21 10:11 100 24 102/64 (77) 94 Nasal Cannula 3.0 10/02/21 10:05 98.0 98.0 Labs Labs Laboratory Tests Test 10/02/21 08:08 10/02/21 08:46 10/02/21 09:00 10/02/21 09:04 White Blood Count 9.2 x10^3/uL (4.0-11.0) Red Blood Count 2.60 x10^6/uL (4.30-5.70) Hemoglobin 7.0 g/dL (13.0-17.5) Hematocrit 21.5 % (39.0-53.0) Mean Corpuscular Volume 83 fL (79-100) Mean Corpuscular Hemoglobin 27 pg (25-35) Mean Corpuscular Hemoglobin Concent 33 g/dL (31-37) Red Cell Distribution Width 15.4 % (11.5-14.5) Platelet Count 217 x10^3/uL (140-400) Neutrophils (%) (Auto) 53 % (31-73) Lymphocytes (%) (Auto) 35 % (24-48) Monocytes (%) (Auto) 9 % (0-9) Eosinophils (%) (Auto) 2 % (0-3) Basophils (%) (Auto) 1 % (0-3) Neutrophils # (Auto) 4.9 x10^3/uL (1.8-7.7) Lymphocytes # (Auto) 3.2 x10^3/uL (1.0-4.8) Monocytes # (Auto) 0.8 x10^3/uL (0.0-1.1) Eosinophils # (Auto) 0.2 x10^3/uL (0.0-0.7) Basophils # (Auto) 0.1 x10^3/uL (0.0-0.2) Prothrombin Time 15.0 SEC (11.7-14.0) Prothromb Time International Ratio 1.2 (0.8-1.1) Activated Partial Thromboplast Time 27 SEC (24-38) Sodium Level 136 mmol/L (136-145) Potassium Level 3.5 mmol/L (3.5-5.1) Chloride Level 100 mmol/L (98-107) Carbon Dioxide Level 14 mmol/L (21-32) Anion Gap 22 (6-14) Blood Urea Nitrogen 48 mg/dL (8-26) Creatinine 1.5 mg/dL (0.7-1.3) Estimated GFR (Cockcroft-Gault) 46.8 BUN/Creatinine Ratio 32 (6-20) Glucose Level 520 mg/dL (70-99) Calcium Level 8.7 mg/dL (8.5-10.1) Magnesium Level 1.8 mg/dL (1.8-2.4) Total Bilirubin 0.7 mg/dL (0.2-1.0) Aspartate Amino Transf (AST/SGOT) 39 U/L (15-37) Alanine Aminotransferase (ALT/SGPT) 23 U/L (16-63) Alkaline Phosphatase 85 U/L (46-116) Creatine Kinase 163 U/L (39-308) Creatine Kinase MB (Mass) 9.3 ng/mL (0.0-3.6) Creatine Kinase MB Relative Index 5.7 % (0-4) Troponin I High Sensitivity 1580 ng/L (4-75) Total Protein 6.0 g/dL (6.4-8.2) Albumin 3.1 g/dL (3.4-5.0) Albumin/Globulin Ratio 1.1 (1.0-1.7) Lipase 67 U/L (73-393) SARS-CoV-2 Antigen (Rapid) Negative (NEGATIVE) Stool Occult Blood Positive (NEG) Urine Collection Type Unknown Urine Color (Auto) Light yellow Urine Turbidity Clear Urine pH (Auto) 5.0 (<5.0-8.0) Urine Specific [place] 1.023 (1.000-1.030) Urine Protein (Auto) Negative mg/dL (Negative) Urine Glucose (Auto)(UA) >=1000 mg/dL (Negative) Urine Ketones (Auto) 20 mg/dL (Negative) Urine Blood (Auto) Negative (Negative) Urine Nitrite Negative (Negative) Urine Bilirubin (Auto) Negative (Negative) Urine Urobilinogen (Auto) Normal mg/dL (Normal) Urine Leukocyte Esterase (Auto) Negative (Negative) Urine RBC 0 /HPF (0-2) Urine WBC 5-10 /HPF (0-4) Urine Squamous Epithelial Cells Occ /LPF Urine Bacteria 0 /HPF (0-FEW) Urine Hyaline Casts Few /HPF Urine Mucus Slight /LPF Laboratory Tests Test 10/02/21 08:08 10/02/21 08:46 10/02/21 09:00 10/02/21 09:04 White Blood Count 9.2 x10^3/uL (4.0-11.0) Red Blood Count 2.60 x10^6/uL (4.30-5.70) Hemoglobin 7.0 g/dL (13.0-17.5) Hematocrit 21.5 % (39.0-53.0) Mean Corpuscular Volume 83 fL (79-100) Mean Corpuscular Hemoglobin 27 pg (25-35) Mean Corpuscular Hemoglobin Concent 33 g/dL (31-37) Red Cell Distribution Width 15.4 % (11.5-14.5) Platelet Count 217 x10^3/uL (140-400) Neutrophils (%) (Auto) 53 % (31-73) Lymphocytes (%) (Auto) 35 % (24-48) Monocytes (%) (Auto) 9 % (0-9) Eosinophils (%) (Auto) 2 % (0-3) Basophils (%) (Auto) 1 % (0-3) Neutrophils # (Auto) 4.9 x10^3/uL (1.8-7.7) Lymphocytes # (Auto) 3.2 x10^3/uL (1.0-4.8) Monocytes # (Auto) 0.8 x10^3/uL (0.0-1.1) Eosinophils # (Auto) 0.2 x10^3/uL (0.0-0.7) Basophils # (Auto) 0.1 x10^3/uL (0.0-0.2) Prothrombin Time 15.0 SEC (11.7-14.0) Prothromb Time International Ratio 1.2 (0.8-1.1) Activated Partial Thromboplast Time 27 SEC (24-38) Sodium Level 136 mmol/L (136-145) Potassium Level 3.5 mmol/L (3.5-5.1) Chloride Level 100 mmol/L (98-107) Carbon Dioxide Level 14 mmol/L (21-32) Anion Gap 22 (6-14) Blood Urea Nitrogen 48 mg/dL (8-26) Creatinine 1.5 mg/dL (0.7-1.3) Estimated GFR (Cockcroft-Gault) 46.8 BUN/Creatinine Ratio 32 (6-20) Glucose Level 520 mg/dL (70-99) Calcium Level 8.7 mg/dL (8.5-10.1) Magnesium Level 1.8 mg/dL (1.8-2.4) Total Bilirubin 0.7 mg/dL (0.2-1.0) Aspartate Amino Transf (AST/SGOT) 39 U/L (15-37) Alanine Aminotransferase (ALT/SGPT) 23 U/L (16-63) Alkaline Phosphatase 85 U/L (46-116) Creatine Kinase 163 U/L (39-308) Creatine Kinase MB (Mass) 9.3 ng/mL (0.0-3.6) Creatine Kinase MB Relative Index 5.7 % (0-4) Troponin I High Sensitivity 1580 ng/L (4-75) Total Protein 6.0 g/dL (6.4-8.2) Albumin 3.1 g/dL (3.4-5.0) Albumin/Globulin Ratio 1.1 (1.0-1.7) Lipase 67 U/L (73-393) SARS-CoV-2 Antigen (Rapid) Negative (NEGATIVE) Stool Occult Blood Positive (NEG) Urine Collection Type Unknown Urine Color (Auto) Light yellow Urine Turbidity Clear Urine pH (Auto) 5.0 (<5.0-8.0) Urine Specific [place] 1.023 (1.000-1.030) Urine Protein (Auto) Negative mg/dL (Negative) Urine Glucose (Auto)(UA) >=1000 mg/dL (Negative) Urine Ketones (Auto) 20 mg/dL (Negative) Urine Blood (Auto) Negative (Negative) Urine Nitrite Negative (Negative) Urine Bilirubin (Auto) Negative (Negative) Urine Urobilinogen (Auto) Normal mg/dL (Normal) Urine Leukocyte Esterase (Auto) Negative (Negative) Urine RBC 0 /HPF (0-2) Urine WBC 5-10 /HPF (0-4) Urine Squamous Epithelial Cells Occ /LPF Urine Bacteria 0 /HPF (0-FEW) Urine Hyaline Casts Few /HPF Urine Mucus Slight /LPF VTE Prophylaxis Ordered VTE Prophylaxis Devices: Yes VTE Pharmacological Prophylaxi: Contraindicated Assessment/Plan Assessment/Plan Acute blood loss anemia - 2 u prbc, transfuse for Hb < 8 or if continued GI bleeding. Consult GI Lower GI bleed - concern for possible anastomotic ulcer given gastric bypass history, sounds like a diverticular bleed, though. GI consulted Ventricular tachycardia - successfully cardioverted per cardiology AFIB with RVR - cannot anticoagulate due to massive GI bleed, rate control difficult with cardiogenic shock Shock - combination of cardiogenic shock and hypovolemic shock. transfuse, judicious fluids, pressors Chest pain - likely due to v-tach, also possibly gastric/peptic/anastomotic ulcer NSTEMI - likely demand ischemia from GI bleed and cardiogenic shock Morbid obesity - s/p dk-en-y gastric bypass (in [place] 2011) Diabetic ketoacidosis - insulin GTT, will not give aggressive fluids given concern for cardiogenic shock HLD - statin CAD s/p stenting x4 2007 and CABG 2017 (FREEMAN to LAD and SVG to OM) - cardiology following, needs treatment for life-threatening GI bleed currently MUNIRA - on CPAP at home, does not know his settings FEN - NPO PPX - PPI, scds FULL CODE Dispo - ICU cc time 49 minutes Justifications for Admission Other Justification LOBO RUSHING MD October 02, 2021 10:17
--- NOTE | 2021-10-02 10:31 | PHYS DOC ---
Past Medical History Past Medical History: CAD, Diabetes-Type II, High Cholesterol, Hypertension, TIA Past Surgical History: Appendectomy, Cholecystectomy, Coronary Bypass Surgery, Tonsillectomy, Other Additional Past Surgical Histo: stent placementx4(2007), Gastric bypass surgery Smoking Status: Never Smoker Alcohol Use: None Drug Use: None General Adult EDM: Chief Complaint: RECTAL BLEED HPI: HPI: 66-year-old male with past medical history of CABG presents with report of weakness with palpitations that started yesterday. Patient had gone to cardiology clinic yesterday for routine follow-up. Patient had an external monitor placed and was set to receive blood work this morning. Patient reports has also had an episode this morning where he felt like he was going to pass out. Reports some associated dark tarry stools that been ongoing for the past few days. Patient reports he had a large stool this morning. Denies any nausea or vomiting. Patient does have a history of prior gastric bypass surgery that was performed in [place] a few years ago. Patient reports taking an 81 mg aspirin daily and a NSAID for pain. Denies trauma. Denies fever/chills. Review of Systems: Review of Systems: Constitutional: Denies fever or chills; reports generalized malaise and weakness Eyes: Denies redness or eye pain HENT: Denies nasal congestion or sore throat Respiratory: Denies cough or shortness of breath Cardiovascular: Reports palpitations and chest discomfort GI: Denies abdominal pain, nausea, or vomiting; reports melena : Denies dysuria or hematuria Musculoskeletal: Denies back pain or joint pain Integument: Denies rash or skin lesions Neurologic: Denies headache, focal weakness or sensory changes; reports dizziness/lightheadedness Complete systems were reviewed and found to be within normal limits, except as documented in this note. Heart Score: C/O Chest Pain: Yes HEART Score for Chest Pain: HEART Score for Chest Pain Response (Comments) Value History Moderately Suspicious 1 ECG Nonspecific Repolarizatio 1 Age > 65 2 Risk Factors >3 Risk Factors or Hx CAD 2 Troponin >3 x Normal Limit 2 Total 8 Risk Factors: Risk Factors: DM, Current or recent (<one month) smoker, HTN, HLP, family histo ry of CAD, obesity. Risk Scores: Score 0 - 3: 2.5% MACE over next 6 weeks - Discharge Home Score 4 - 6: 20.3% MACE over next 6 weeks - Admit for Clinical Observation Score 7 - 10: 72.7% MACE over next 6 weeks - Early Invasive Strategies Current Medications: Current Medications Medications (Trade) Dose Ordered Sig/Deion Start Time Stop Time Status Last Admin Dose Admin Amiodarone HCl 150 mg/Dextrose 103 ml @ 618 mls/hr 1X ONCE 10/02/21 08:15 10/02/21 08:24 DC 10/02/21 08:38 618 MLS/HR Amiodarone HCl 450 mg/Dextrose 259 ml @ 34.533 mls/ hr CONT PRN 10/02/21 08:15 10/03/21 08:12 10/02/21 08:54 34.533 MLS/HR Dextrose (Dextrose 50%-Water Syringe) 12.5 gm PRN Q15MIN PRN 10/02/21 10:15 Etomidate (Amidate) 10 mg 1X ONCE 10/02/21 09:30 10/02/21 09:32 DC 10/02/21 09:52 10 MG Fentanyl Citrate (Fentanyl 2ml Vial) 100 mcg 1X ONCE 10/02/21 09:30 10/02/21 09:32 DC 10/02/21 09:52 100 MCG Insulin Human Lispro (HumaLOG) 0-5 UNITS TIDWMEALS 10/02/21 12:00 Insulin Human Regular (HumuLIN R VIAL) 10 unit 1X ONCE 10/02/21 08:45 10/02/21 08:56 DC 10/02/21 09:17 10 UNIT Norepinephrine Bitartrate 8 mg/ Dextrose 258 ml @ 26.374 mls/ hr 1X ONCE 10/02/21 09:15 10/02/21 19:01 10/02/21 09:31 25.5 MLS/HR Ondansetron HCl (Zofran) 4 mg PRN Q8HRS PRN 10/02/21 10:15 10/03/21 10:14 Pantoprazole Sodium (PROTONIX VIAL for IV PUSH) 80 mg 1X ONCE 10/02/21 08:15 10/02/21 08:20 DC 10/02/21 08:27 80 MG Pantoprazole Sodium 80 mg/ Sodium Chloride 100 ml @ 10 mls/hr Q10H 10/02/21 09:00 10/02/21 09:20 10 MLS/HR Sodium Chloride 1,000 ml @ 100 mls/hr Q10H 10/02/21 10:15 10/03/21 10:14 Allergies: Allergies: Allergies Coded Allergies Type Severity Reaction Last Updated Verified No Known Drug Allergies 10/02/21 No Physical Exam: PE: Constitutional: Obese, ill appearing, pale HENT: Normocephalic, atraumatic Eyes: Conjunctiva normal, no discharge Neck: Normal range of motion, supple Lungs & Thorax: No respiratory distress, equal chest rise and fall Abdomen: Soft, no tenderness, no guarding Skin: Warm, diaphoretic, pallor Extremities: No tenderness, ROM intact, trace BLE edema Neurologic: Alert and oriented X 3, no focal deficits noted Psychologic: Affect normal, judgment normal Current Patient Data: Labs: Laboratory Tests Test 10/02/21 08:08 10/02/21 08:46 10/02/21 09:00 10/02/21 09:04 White Blood Count 9.2 x10^3/uL (4.0-11.0) Red Blood Count 2.60 x10^6/uL (4.30-5.70) L Hemoglobin 7.0 g/dL (13.0-17.5) *L Hematocrit 21.5 % (39.0-53.0) L Mean Corpuscular Volume 83 fL (79-100) Mean Corpuscular Hemoglobin 27 pg (25-35) Mean Corpuscular Hemoglobin Concent 33 g/dL (31-37) Red Cell Distribution Width 15.4 % (11.5-14.5) H Platelet Count 217 x10^3/uL (140-400) Neutrophils (%) (Auto) 53 % (31-73) Lymphocytes (%) (Auto) 35 % (24-48) Monocytes (%) (Auto) 9 % (0-9) Eosinophils (%) (Auto) 2 % (0-3) Basophils (%) (Auto) 1 % (0-3) Neutrophils # (Auto) 4.9 x10^3/uL (1.8-7.7) Lymphocytes # (Auto) 3.2 x10^3/uL (1.0-4.8) Monocytes # (Auto) 0.8 x10^3/uL (0.0-1.1) Eosinophils # (Auto) 0.2 x10^3/uL (0.0-0.7) Basophils # (Auto) 0.1 x10^3/uL (0.0-0.2) Prothrombin Time 15.0 SEC (11.7-14.0) H Prothrombin Time INR 1.2 (0.8-1.1) H Activated Partial Thromboplast Time 27 SEC (24-38) Sodium Level 136 mmol/L (136-145) Potassium Level 3.5 mmol/L (3.5-5.1) Chloride Level 100 mmol/L (98-107) Carbon Dioxide Level 14 mmol/L (21-32) L Anion Gap 22 (6-14) H Blood Urea Nitrogen 48 mg/dL (8-26) H Creatinine 1.5 mg/dL (0.7-1.3) H Estimated GFR (Cockcroft-Gault) 46.8 BUN/Creatinine Ratio 32 (6-20) H Glucose Level 520 mg/dL (70-99) *H Calcium Level 8.7 mg/dL (8.5-10.1) Magnesium Level 1.8 mg/dL (1.8-2.4) Total Bilirubin 0.7 mg/dL (0.2-1.0) Aspartate Amino Transferase (AST) 39 U/L (15-37) H Alanine Aminotransferase (ALT) 23 U/L (16-63) Alkaline Phosphatase 85 U/L (46-116) Creatine Kinase 163 U/L (39-308) Creatine Kinase MB (Mass) 9.3 ng/mL (0.0-3.6) H Creatine Kinase MB Relative Index 5.7 % (0-4) H Troponin I High Sensitivity 1580 ng/L (4-75) H Total Protein 6.0 g/dL (6.4-8.2) L Albumin 3.1 g/dL (3.4-5.0) L Albumin/Globulin Ratio 1.1 (1.0-1.7) Lipase 67 U/L (73-393) L SARS-CoV-2 Antigen (Rapid) Negative (NEGATIVE) Stool Occult Blood Positive (NEG) Urine Collection Type Unknown Urine Color (Auto) Light yellow Urine Turbidity Clear Urine pH (Auto) 5.0 (<5.0-8.0) Urine Specific Alexis 1.023 (1.000-1.030) Urine Protein (Auto) Negative mg/dL (Negative) Urine Glucose (Auto)(UA) >=1000 mg/dL (Negative) Urine Ketones (Auto) 20 mg/dL (Negative) Urine Blood (Auto) Negative (Negative) Urine Nitrite Negative (Negative) Urine Bilirubin (Auto) Negative (Negative) Urine Urobilinogen (Auto) Normal mg/dL (Normal) Urine Leukocyte Esterase (Auto) Negative (Negative) Urine RBC 0 /HPF (0-2) Urine WBC 5-10 /HPF (0-4) Urine Squamous Epithelial Cells Occ /LPF Urine Bacteria 0 /HPF (0-FEW) Urine Hyaline Casts Few /HPF Urine Mucus Slight /LPF Laboratory Tests 10/02/21 08:08 Laboratory Tests 10/02/21 08:08 Vital Signs: Vital Signs Date Time Temp Pulse Resp B/P (MAP) Pulse Ox O2 Delivery O2 Flow Rate FiO2 10/02/21 10:16 107 24 105/68 (80) 95 Nasal Cannula 3.0 10/02/21 10:05 98.0 98.0 EKG: EKG: @0809 Wide complex tachycardia concerning for VTach vs Afib with abberancy at 159bpm @0927 (on Amiodorone) Continued wide complex tachycardia at 130bpm, QRS 140ms, QT/QTc 340/500ms, t wave inversion I and aVL @1001 (s/p Electrical Cardioversion) Wide comlpex tachycardia at 87bpm, NO ST elevation, QRS 134ms, QT/QTc 398/477ms, t wave inversion I and aVL Radiology/Procedures: Radiology/Procedures: [] Course & Med Decision Making: Course & Med Decision Making Pertinent Lab studies reviewed. (See chart for details) Patient presents with report of near syncopal episode this morning with associated palpitations since yesterday. Patient also with report of melanotic stooling over the last few days. Reports he does take a baby aspirin daily as well as some NSAIDs. Patient does have a history of gastric bypass surgery. Denies any vomiting. EKG with wide-complex tachycardia concerning for V. tach. Amiodarone initiated. Patient with low blood pressure and therefore concurrent IV fluid bolusing also initiated. Protonix bolus and drip also provided. Labs obtained and posted to chart. Hemoglobin down to 7.0. Type and screen performed with plan to transfuse 2 units. Patient's heart rate continued to be tachycardic with wide-complex and now with decreasing blood pressure. Levophed initiated for blood pressure support. Discussed case with Kerri WAFFLE MACHINE OPERATOR with Dr. Branch (cardiology). Both presented to ED for evaluation. Decision that patient would need emergent cardioversion. Emergent consent utilized. Etomidate and Fentanyl provided for sedation. Successful cardioversion performed after administration of synchronized 100 J with interval improvement of heart rate. Significantly elevated troponin noted. Heparin and ASA held given active GI bleeding. Hyperglycemia addressed. Discussed case with Dr. Christian (GI), who is in agreement with consultation and continuation of Protonix gtt. Patient requiring admission for further evaluation and treatment. Discussed with Dr. Cruz (hospitalist) who is in agreement with admission. Discussed findings and plan with patient and family, who acknowledge understanding and agreement. Dragon Disclaimer: Dragon Disclaimer: This electronic medical record was generated, in whole or in part, using a voice recognition dictation system. Departure Departure Impression: Primary Impression: Acute GI bleeding Additional Impressions: Wide-complex tachycardia NSTEMI (non-ST elevated myocardial infarction) Hyperglycemia Disposition: 09 ADMITTED INPATIENT (ICU) Admitting Physician: RUDDY (Anthony) Condition: GUARDED Referrals: THERESA OCHOA MD (PCP) MODERATE SEDATION ASSESSMENT* RISKS/ALTERNATIVES Risks/Alternatives Risks and alternatives of this type of sedation and procedure discussed with: RISK/ALTERNATIVES: Patient H & P ON CHART H & P H & P on chart and reviewed for co-morbid conditions and appropriate labs. H&P ON CHART: Yes STATUS PREG STATUS ASSESSED: N/A MEDS/ALLERGIES REVIEWED Meds/Allergies Reviewed Medications and Allergies including time and route of recently administered narcotics and sedatives. MEDS/ALLERGIES REVIEWED: Yes ASA RATING ASA RATING: IV AIRWAY ASSESSMENT Airway Assessment Airway patency, oral function limitations, presence of caps, crowns, dentures, partials, and ability to extend neck assessed. AIRWAY ASSESSMENT: Yes MALLAMPATI SCORE MALLAMPATI SCORE: III PRE-SEDATION ASSESSMENT PRE-SEDATION ASSESSMENT: Yes Additional Procedures Progress Electrical cardioversion under moderate sedation Emergent consent utilized. Time out performed. Hand hygiene utilized. Monitoring in place including continuous pulse oximetry, end-tidal CO2, and telemetry. Intermittent blood pressure also utilized. Supplemental O2 at 2 L via nasal cannula in place. IV fluid bolusing in place. Moderate sedation initiated with 100 mcg of fentanyl as well as 10 mg of etomidate. Etomidate was pushed by myself. Electrical synchronization utilized with electrical cardioversion initiated at 100 J x 1 was successful. A repeat EKG was obtained. Patient tolerated procedure well and without difficulty. Critical Care Time Critical care time was 30 minutes which includes time at bedside, spent in discussion of patient's care with specialists and/or family members, with interpretation of laboratory and/or radiological studies and is exclusive of procedures. CELINA PAUL DO October 02, 2021 10:31
--- NOTE | 2021-10-02 11:30 | NUR ---
Pt arrived by bed to ICU from ED. Vitals stable on admission, HR in low 100s. Spoke with Dr. Cruz regarding plan of care, orders recieved, will continue to monitor. All pt belongings taken with pt significant other.
[2021-10-02] MEDS: INSULIN LISPRO 300 UNITS/3 ML VIAL. SQ SCH ×2 (12:00→16:32)
[2021-10-02] MEDS: INSULIN REGULAR VIAL 100 UNIT in IV NORMAL SALINE 100ML 100 ML IV PRN ×2 (12:10→17:47)
--- NOTE | 2021-10-02 12:30 | NUR ---
Patient unstable, requiring rapid titration of levophed d/t sustained MAP <65 beginning at 1230. Starting rate at 0.1 mcg/kg/min and patient stabilized at 1630 with MAP 78 with levophed gtt currently infusing at 0.1 mcg/kg/min; the max rate during this time was 0.22 mcg/kg/min of medication administered during charting block which ended at 1630. (Max block time 4 hours.) Pt in sinus tach rhythm, HR 106, Spo2 100%.
[2021-10-02 12:45] LABS: BASE EXCESS ABG -14 mmol/L (-3-3); HCO3 ABG 12 mmol/L (21-28); PCO2 ABG 25 mmHg (35-46); PO2 ABG 59 mmHg (65-108); SAT O2 ABG 83 % (92-99)
[2021-10-02 12:48] LABS: CALCIUM 7.8 mg/dL (8.5-10.1); CREATININE 1.4 mg/dL (0.7-1.3); GFR 50.7; MAGNESIUM 1.8 mg/dL (1.8-2.4); PHOSPHORUS 4.8 mg/dL (2.6-4.7); POTASSIUM 4.9 mmol/L (3.5-5.1)
[2021-10-02 12:53] LABS: FIO2 ABG 44
--- NOTE | 2021-10-02 13:08 | RAD ---
XR CHEST 1V History: Reason: Central line placement / Spl. Instructions: / History: Comparison: October 21, 2017 Findings: Right IJ central line with tip overlying the cavoatrial junction. No pneumothorax. Mild diffuse inter stitial thickening with ill-defined opacities. No pleural effusion. No pneumothorax. Unchanged heart size. Prior median sternotomy. Impression: 1. Interval placement right IJ central line. No pneumothorax. 2. Mild diffuse interstitial thickening with ill-defined opacities, may represent pulmonary edema. Electronically signed by: Tejinder Roth DO (10/02/2021 1:06 PM) [id number]
[2021-10-02] MEDS ORDERED: FUROSEMIDE 40 MG/4 ML VIAL. IVP ONE (13:45)
--- NOTE | 2021-10-02 13:55 | PDOC2 ---
GI CONSULT Date of Service: DATE: 10/02/21 TIME: 13:43 Reason For Consult: Melena/anemia HPI: HPI: 66 y/o male with onset of melena yesterday morning. No hemaemesis. Denies abdominal pain. Has been taking meloxicam with his usual ASA. Not on antisecretory. No prior GI bleeding. Maybe occasional heartburn. No PUD. S/p dk-en-Y bypass; did not have pre-op EGD. S/p cholecystectomy. No liver or pancreatic history. Stools typically loose after his bypass. No overt blood in stool save some with the melena. Did have reportedly normal colonoscopy in the past >10 years ago. GIFH negative. PMH: PMH: DM, CAD, HTN, HLP, OA. S/p CABG, paco, appy, arthroscopies. FH: Family History: CAD, DM Social History: Smoke: No ALCOHOL: none Drugs: None ROS: GEN: Denies fevers, chills, sweats HEENT: Denies blurred vision, sore throat CV: Denies chest pain RESP: Denies shortness of air, cough GI: Per HPI : Denies hematuria, dysuria ENDO: Denies weight changes NEURO: Denies confusion, dizziness MSK: Denies joint pain/swelling SKIN: Denies jaundice, pruritus Vitals: Vitals: Vital Signs Date Time Temp Pulse Resp B/P (MAP) Pulse Ox O2 Delivery O2 Flow Rate FiO2 10/02/21 13:12 97.3 104 18 108/65 97.3 10/02/21 12:30 Nasal Cannula 6.0 10/02/21 11:00 95 Labs: Labs: Laboratory Tests Test 10/02/21 08:08 10/02/21 08:46 10/02/21 09:00 10/02/21 09:04 White Blood Count 9.2 x10^3/uL (4.0-11.0) Red Blood Count 2.60 x10^6/uL (4.30-5.70) Hemoglobin 7.0 g/dL (13.0-17.5) Hematocrit 21.5 % (39.0-53.0) Mean Corpuscular Volume 83 fL (79-100) Mean Corpuscular Hemoglobin 27 pg (25-35) Mean Corpuscular Hemoglobin Concent 33 g/dL (31-37) Red Cell Distribution Width 15.4 % (11.5-14.5) Platelet Count 217 x10^3/uL (140-400) Neutrophils (%) (Auto) 53 % (31-73) Lymphocytes (%) (Auto) 35 % (24-48) Monocytes (%) (Auto) 9 % (0-9) Eosinophils (%) (Auto) 2 % (0-3) Basophils (%) (Auto) 1 % (0-3) Neutrophils # (Auto) 4.9 x10^3/uL (1.8-7.7) Lymphocytes # (Auto) 3.2 x10^3/uL (1.0-4.8) Monocytes # (Auto) 0.8 x10^3/uL (0.0-1.1) Eosinophils # (Auto) 0.2 x10^3/uL (0.0-0.7) Basophils # (Auto) 0.1 x10^3/uL (0.0-0.2) Prothrombin Time 15.0 SEC (11.7-14.0) Prothromb Time International Ratio 1.2 (0.8-1.1) Activated Partial Thromboplast Time 27 SEC (24-38) Sodium Level 136 mmol/L (136-145) Potassium Level 3.5 mmol/L (3.5-5.1) Chloride Level 100 mmol/L (98-107) Carbon Dioxide Level 14 mmol/L (21-32) Anion Gap 22 (6-14) Blood Urea Nitrogen 48 mg/dL (8-26) Creatinine 1.5 mg/dL (0.7-1.3) Estimated GFR (Cockcroft-Gault) 46.8 BUN/Creatinine Ratio 32 (6-20) Glucose Level 520 mg/dL (70-99) Calcium Level 8.7 mg/dL (8.5-10.1) Magnesium Level 1.8 mg/dL (1.8-2.4) Total Bilirubin 0.7 mg/dL (0.2-1.0) Aspartate Amino Transf (AST/SGOT) 39 U/L (15-37) Alanine Aminotransferase (ALT/SGPT) 23 U/L (16-63) Alkaline Phosphatase 85 U/L (46-116) Creatine Kinase 163 U/L (39-308) Creatine Kinase MB (Mass) 9.3 ng/mL (0.0-3.6) Creatine Kinase MB Relative Index 5.7 % (0-4) Troponin I High Sensitivity 1580 ng/L (4-75) Total Protein 6.0 g/dL (6.4-8.2) Albumin 3.1 g/dL (3.4-5.0) Albumin/Globulin Ratio 1.1 (1.0-1.7) Lipase 67 U/L (73-393) SARS-CoV-2 Antigen (Rapid) Negative (NEGATIVE) Stool Occult Blood Positive (NEG) Urine Collection Type Unknown Urine Color (Auto) Light yellow Urine Turbidity Clear Urine pH (Auto) 5.0 (<5.0-8.0) Urine Specific Evans 1.023 (1.000-1.030) Urine Protein (Auto) Negative mg/dL (Negative) Urine Glucose (Auto)(UA) >=1000 mg/dL (Negative) Urine Ketones (Auto) 20 mg/dL (Negative) Urine Blood (Auto) Negative (Negative) Urine Nitrite Negative (Negative) Urine Bilirubin (Auto) Negative (Negative) Urine Urobilinogen (Auto) Normal mg/dL (Normal) Urine Leukocyte Esterase (Auto) Negative (Negative) Urine RBC 0 /HPF (0-2) Urine WBC 5-10 /HPF (0-4) Urine Squamous Epithelial Cells Occ /LPF Urine Bacteria 0 /HPF (0-FEW) Urine Hyaline Casts Few /HPF Urine Mucus Slight /LPF Test 10/02/21 12:04 10/02/21 12:20 10/02/21 12:30 10/02/21 13:10 Glucose (Fingerstick) 459 mg/dL (70-99) 462 mg/dL (70-99) Sodium Level 136 mmol/L (136-145) Potassium Level 4.9 mmol/L (3.5-5.1) Chloride Level 104 mmol/L (98-107) Carbon Dioxide Level 14 mmol/L (21-32) Anion Gap 18 (6-14) Blood Urea Nitrogen 45 mg/dL (8-26) Creatinine 1.4 mg/dL (0.7-1.3) Estimated GFR (Cockcroft-Gault) 50.7 Glucose Level 494 mg/dL (70-99) Calcium Level 7.8 mg/dL (8.5-10.1) Phosphorus Level 4.8 mg/dL (2.6-4.7) Magnesium Level 1.8 mg/dL (1.8-2.4) O2 Saturation 83 % (92-99) Arterial Blood pH 7.28 (7.35-7.45) Arterial Blood pCO2 at Patient Temp 25 mmHg (35-46) Arterial Blood pO2 at Patient Temp 59 mmHg (65-108) Arterial Blood HCO3 12 mmol/L (21-28) Arterial Blood Base Excess -14 mmol/L (-3-3) FiO2 44 Allergies: Coded Allergies: No Known Drug Allergies (Unverified , 10/02/21) Medications: Current Medications Medications (Trade) Dose Ordered Sig/Deion Route PRN Reason Start Time Stop Time Status Last Admin Dose Admin Sodium Chloride 1,000 ml @ 1,000 mls/hr 1X ONCE IV 10/02/21 08:15 10/02/21 09:14 DC 10/02/21 08:15 Pantoprazole Sodium (PROTONIX VIAL for IV PUSH) 80 mg 1X ONCE IVP 10/02/21 08:15 10/02/21 08:20 DC 10/02/21 08:27 Amiodarone HCl 150 mg/Dextrose 103 ml @ 618 mls/hr 1X ONCE IV 10/02/21 08:15 10/02/21 08:24 DC 10/02/21 08:38 Amiodarone HCl 450 mg/Dextrose 259 ml @ 34.533 mls/ hr CONT PRN IV SEE I/O RECORD 10/02/21 08:15 10/03/21 08:12 10/02/21 08:54 Sodium Chloride 1,000 ml @ 1,000 mls/hr 1X ONCE IV 10/02/21 08:30 10/02/21 09:29 DC 10/02/21 08:30 Sodium Chloride 1,000 ml @ 1,000 mls/hr 1X ONCE IV 10/02/21 09:00 10/02/21 09:59 DC 10/02/21 08:45 Insulin Human Regular (HumuLIN R VIAL) 10 unit 1X ONCE SQ 10/02/21 08:45 10/02/21 08:56 DC 10/02/21 09:17 Pantoprazole Sodium 80 mg/ Sodium Chloride 100 ml @ 10 mls/hr Q10H IV 10/02/21 09:00 10/02/21 09:20 Norepinephrine Bitartrate 8 mg/ Dextrose 258 ml @ 26.374 mls/ hr 1X ONCE IV 10/02/21 09:15 10/02/21 19:01 10/02/21 09:31 Etomidate (Amidate) 10 mg 1X ONCE IV 10/02/21 09:30 10/02/21 09:32 DC 10/02/21 09:52 Fentanyl Citrate (Fentanyl 2ml Vial) 100 mcg 1X ONCE IVP 10/02/21 09:30 10/02/21 09:32 DC 10/02/21 09:52 Ondansetron HCl (Zofran) 4 mg PRN Q8HRS PRN IVP NAUSEA/VOMITING 10/02/21 10:15 10/03/21 10:14 10/02/21 11:17 Sodium Chloride 1,000 ml @ 250 mls/hr Q4H IV 10/02/21 11:15 10/02/21 13:36 DC 10/02/21 11:16 Insulin Human Regular 100 unit/ Sodium Chloride 101 ml @ 0 mls/hr CONT PRN PRN IV PER PROTOCOL 10/02/21 11:00 10/02/21 12:10 PE: GEN: NAD HEENT: Atraumatic, PERRLA LUNGS: CTAB HEART: RRR, no murmurs ABD: NABS, S/ND/NT, no masses EXTREMITY: No edema SKIN: No rashes, no jaundice NEURO/PSYCH: A & O 3 A/P: A/P: IMP: Melena/acute anemia--UGI source suspect, perhaps anastomotic ulcer after his bypass, maybe related to NSAID use. CRC screening; overdue for repeat. S/p cholecystectomy. REC: Continue PPI drip. Urgent EGD today. --other rec's pending. CELINA CARABALLO MD October 02, 2021 13:55
--- NOTE | 2021-10-02 15:04 | PDOC4 ---
PROCEDURE Procedure EGD Indication: melena/anemia Meds: per anesthesia Findings: E--Grade A reflux distally. G--S/p distal gastrectomy or partitioning, hard to say. Has gastroenterostomy with shallow ulcer on gastric side, ~12mm. No clot or active bleeding. One small red dot, but no visible vessel. Not treated. D--Has double-barrelled anastomosis, NOT standard Bailey-en-Y. Retained suture in one limb. No blood or other abnormality in either. Steven. well. IMP: Reflux esophagitis. Anastomotic ulcer, not bleeding and seemingly not at high risk to re- bleed. S/p distal gastrectomy or partitioning with gastroenterostomy--NOT Bailey-en-Y. REC: Continue PPI drip. Sucralfate qid. May have ice chips now; if can go 24 hours w/o signs of bleeding, advance diet and po PPI bid. Would keep in ICU at least overnight. Monitor hemoglobin, etc. Transfuse if needed. Would not anticoagulate unless extreme need. Off the weekend. Dr. Yoselin rausch. CELINA CARABALLO MD October 02, 2021 15:04
--- NOTE | 2021-10-02 15:15 | CARD ---
MR#: [id number] Date of Study: 10/02/2021 Ordering Physician: JOCELYNE CHATMAN, Referring Physician: JOCELYNE CHATMAN Tech: Héctor Khan [facility] APPROVED REPORT EXAM: Two-dimensional and M-mode echocardiogram with Doppler and color Doppler. Other Information Quality : AverageHR: 103bpm Rhythm : TachycardiaTechnically limited study due to body habitus,smoking and marked dyspnea. INDICATION Atrial Fibrillation Non STEMI RISK FACTORS Hypertension Obesity Hyperlipidemia Family History Diabetes Smoking 2D DIMENSIONS Left Atrium(2D)5.1 (1.6-4.0cm)IVSd1.1 (0.7-1.1cm) Aortic Root(2D)3.8 (2.0-3.7cm)LVDd6.6 (3.9-5.9cm) LVOT Diameter2.5 (1.8-2.4cm)PWd1.0 (0.7-1.1cm) LA Bakhzg32 (18-58mL)LVDs5.6 (2.5-4.0cm) FS (%) 14.9 %SV69.4 ml Aortic Valve AoV Peak Josafat.106.0cm/sAoV VTI19.2cm AO Peak GR.4.5mmHgLVOT Peak Josafat.74.9cm/s AO Mean GR.3mmHgAVA (VMAX)3.40cm2 Pulmonary Valve PV Peak Kkiymrns68.8cm/s Tricuspid Valve TR P. [id number]/sTR Peak Gr.10mmHg LEFT VENTRICLE The Left Ventricle is mild to moderately dilated. There is normal left ventricular wall thickness. Th e systolic function is moderately impaired. The Ejection Fraction is 30 to 35%. There is global hypok inesis of the left ventricle. Diastolic function unable to be assessed due to atrial fibrillaton. No left ventricle thrombus noted on this study. There is no ventricular septal defect visualized. There is no left ventricular aneurysm. There is no mass noted in the left ventricle. RIGHT VENTRICLE The right ventricle is normal size. There is normal right ventricular wall thickness. Systolic functi on is borderline reduced. ATRIA The left atrium is moderately dilated. The right atrium size is normal. The interatrial septum is int act with no evidence for an atrial septal defect or patent foramen ovale as noted on 2-D or Doppler i maging. AORTIC VALVE The aortic valve is calcified but opens well. Doppler and Color Flow revealed no significant aortic r egurgitation. There is no significant aortic valvular stenosis. There is no aortic valvular vegetatio n. MITRAL VALVE The mitral valve is thickened but opens well. There is no evidence of mitral valve prolapse. There is no mitral valve stenosis. Doppler and Color Flow revealed trace to mild mitral regurgitation. TRICUSPID VALVE The tricuspid valve is normal in structure and function. Doppler and Color Flow revealed trace tricus pid regurgitation. There is no tricuspid valve prolapse or vegetation. There is no tricuspid valve st enosis. PULMONIC VALVE The pulmonary valve is normal in structure and function. Doppler and Color Flow revealed no pulmonic valvular regurgitation. There is no pulmonic valvular stenosis. GREAT VESSELS The aortic root is borderline dilated at 3.8cm. The ascending aorta is normal in size. The pulmonary artery is normal. The IVC is dilated with blunted inspiratory response. PERICARDIAL EFFUSION There is no pleural effusion. There is no evidence of significant pericardial effusion. Critical Notification Critical Value: No <Conclusion> The Left Ventricle is mild to moderately dilated. The systolic function is moderately impaired. The Ejection Fraction is 30 to 35%. There is global hypokinesis of the left ventricle. Doppler and Color Flow revealed no significant aortic regurgitation. There is no significant aortic valvular stenosis. Doppler and Color Flow revealed trace to mild mitral regurgitation. Doppler and Color Flow revealed trace tricuspid regurgitation. The aortic root is borderline dilated at 3.8cm. Signed by : Seth Harmon MD Electronically Approved : 10/02/2021 15:15:08
[2021-10-02 16:21] LABS: HEMOGLOBIN 8.7 g/dL (13.0-17.5); RED BLOOD COUNT 3.29 x10^6/uL (4.30-5.70); RED CELL DISTRIBUTION WIDTH 15.4 % (11.5-14.5); WHITE BLOOD COUNT 11.8 x10^3/uL (4.0-11.0)
[2021-10-02] MEDS: SUCRALFATE 1 GM/10 ML ORAL.SUSP. PO SCH ×2 (16:21→21:32)
[2021-10-02 16:26] LABS: CALCIUM 7.8 mg/dL (8.5-10.1); CREATININE 1.4 mg/dL (0.7-1.3); GFR 50.7; POTASSIUM 3.9 mmol/L (3.5-5.1)
[2021-10-02 21:18] LABS: CREATININE 1.3 mg/dL (0.7-1.3); GFR 55.2; MAGNESIUM 1.7 mg/dL (1.8-2.4); PHOSPHORUS 2.6 mg/dL (2.6-4.7); POTASSIUM 3.8 mmol/L (3.5-5.1)
--- NOTE | 2021-10-02 22:10 | NUR ---
Contacted Dr. Fernandez regarding anion gap closure and no long acting insulin order. Dr. Fernandez ordered for insulin gtt to remain on through the night and to stop one hour after lantus given in A.M. Ok for patient to have ADA diet in A.M. if tolerates being off BiPAP. Moderate sliding scale insulin also ordered to start on 10/03/2021.
[2021-10-02] MEDS: NORMAL SALINE IV SCH (22:42)
[2021-10-02] MEDS: POTASSIUM PHOS M BASIC D BASIC IV SCH (22:42)
[2021-10-02] MEDS ORDERED: MAGNESIUM SULFATE 2GM 50 ML IV ONE (22:45)
[2021-10-03] VITALS (24 sets, daily range): BP systolic 90–121; BP diastolic 60–76
[2021-10-03] MEDS: POTASSIUM PHOS M BASIC D BASIC IV SCH (00:58)
[2021-10-03] MEDS: NORMAL SALINE IV SCH (00:58)
[2021-10-03 04:35] LABS: HEMATOCRIT 23.9 % (39.0-53.0); HEMOGLOBIN 8.1 g/dL (13.0-17.5); RED BLOOD COUNT 2.93 x10^6/uL (4.30-5.70); RED CELL DISTRIBUTION WIDTH 15.2 % (11.5-14.5); WHITE BLOOD COUNT 9.2 x10^3/uL (4.0-11.0)
[2021-10-03] MEDS: PANTOPRAZOLE SODIUM IV DRIP 80 MG in IV NORMAL SALINE 100ML 100 ML IV SCH ×2 (05:04→15:00)
[2021-10-03 05:06] LABS: ALBUMIN 2.8 g/dL (3.4-5.0); CREATININE 1.2 mg/dL (0.7-1.3); GFR 60.6; TOTAL BILIRUBIN 0.7 mg/dL (0.2-1.0); TOTAL PROTEIN 5.6 g/dL (6.4-8.2)
[2021-10-03 05:08] LABS: CHOLESTEROL/HDL RATIO 1.9
[2021-10-03 07:37] LABS: BASE EXCESS ABG -7 mmol/L (-3-3); HCO3 ABG 17 mmol/L (21-28); PCO2 ABG 26 mmHg (35-46); PO2 ABG 77 mmHg (65-108); SAT O2 ABG 92 % (92-99)
[2021-10-03 07:39] LABS: FIO2 ABG 40%
[2021-10-03] MEDS: INSULIN LISPRO 300 UNITS/3 ML VIAL. SQ SCH ×3 (07:58→16:32)
[2021-10-03] MEDS: SUCRALFATE 1 GM/10 ML ORAL.SUSP. PO SCH ×4 (08:05→21:09)
[2021-10-03] MEDS: INSULIN GLARGINE SYRINGE. SQ SCH ×2 (08:19→21:13)
--- NOTE | 2021-10-03 09:34 | PDOC ---
PROGRESS NOTES Date of Service: DATE: 10/03/21 TIME: 09:33 Subjective Subjective Patient feeling much better today. Denied any chest pain. Dyspnea improved. Objective Objective Vital Signs Date Time Temp Pulse Resp B/P (MAP) Pulse Ox O2 Delivery O2 Flow Rate FiO2 10/03/21 08:00 Nasal Cannula 5.0 10/03/21 06:30 91 20 109/69 95 10/03/21 04:00 97.4 97.4 Intake and Output 10/03/21 07:00 Intake Total 5310 ml Output Total 2111 ml Balance 3199 ml Intake Oral 120 ml IV Total 3394 ml Blood Product IV Normal Saline Flush 1796 ml Output Urine Total 2111 ml Physical Exam Abdomen: Normal bowel sounds, Soft, No hepatosplenomegaly, No masses, Other (diffusely tender) Heart: Other (AFIB RVR) Extremities: No clubbing, No cyanosis, Normal pulses, No tenderness/swelling General: Alert, Cooperative, severe distress HEENT: Atraumatic, PERRLA, EOMI, Other (pale mucosa) Lungs: Other (bialteral crackles) Neuro: Strength at 5/5 X4 ext, Normal tone, Cranial nerves 3-12 NL, Reflexes 2+ Psych/Mental Status: Other (flat affect, drowsy) Skin: No rashes, No breakdown, No significant lesion Assessment Assessment 1. GI bleed with melena, anemia. Upper GI endoscopy yesterday showed reflux esophagitis and bleeding anastomotic ulcer for which he apparently underwent cauterization. Continue proton pump inhibitors and treatment per GI team. 2. Anemia secondary to GI bleed. Hemoglobin 8.1 posttransfusion. 3. AFIB RVR with abberant conduction s/p cardioversion, presently in sinus rhythm. Continue amiodarone for antiarrhythmic therapy - change to PO. He is presently a poor candidate for long-term anticoagulation. We will consider outpatient referral for LAAO 4. Hypotension: multifactorial, improved. 5. NSTEMI in a patient with known history of coronary artery disease s/p CABG: Could be type 2 demand mediated but significant coronary artery disease needs to be ruled out since troponin level is significantly elevated at 190 K. Timing of cardiac catheterization discussed with GI team - Okay to proceed after 48 hours. We will plan for coronary and bypass graft angiography possibly on Tuesday. 6. Ischemic cardiomyopathy with LVEF 30 to 35% on 2D echo. This is significantly diminished from prior 2D echo that showed normal LV systolic function. Plan for cardiac catheterization as stated above. Repeat 2D echo in 3 months to evaluate the need for AICD [place]. 7. Hx of gastric bypass with ASA and meloxicam use 8. DM2: per PCP 9. HLP: Continue statin therapy Plan Plan of Care Problems Medical Problems: (1) Acute GI bleeding Status: Acute (2) Hyperglycemia Status: Acute (3) NSTEMI (non-ST elevated myocardial infarction) Status: Acute (4) Wide-complex tachycardia Status: Acute Comment Review of Relevant I have reviewed the following items rabia (where applicable) has been applied. Labs Laboratory Tests Test 10/02/21 12:04 10/02/21 12:20 10/02/21 12:30 10/02/21 13:10 Glucose (Fingerstick) 459 mg/dL (70-99) 462 mg/dL (70-99) Sodium Level 136 mmol/L (136-145) Potassium Level 4.9 mmol/L (3.5-5.1) Chloride Level 104 mmol/L (98-107) Carbon Dioxide Level 14 mmol/L (21-32) Anion Gap 18 (6-14) Blood Urea Nitrogen 45 mg/dL (8-26) Creatinine 1.4 mg/dL (0.7-1.3) Estimated GFR (Cockcroft-Gault) 50.7 Glucose Level 494 mg/dL (70-99) Calcium Level 7.8 mg/dL (8.5-10.1) Phosphorus Level 4.8 mg/dL (2.6-4.7) Magnesium Level 1.8 mg/dL (1.8-2.4) O2 Saturation 83 % (92-99) Arterial Blood pH 7.28 (7.35-7.45) Arterial Blood pCO2 at Patient Temp 25 mmHg (35-46) Arterial Blood pO2 at Patient Temp 59 mmHg (65-108) Arterial Blood HCO3 12 mmol/L (21-28) Arterial Blood Base Excess -14 mmol/L (-3-3) FiO2 44 Test 10/02/21 14:16 10/02/21 15:10 10/02/21 15:22 10/02/21 16:00 Glucose (Fingerstick) 421 mg/dL (70-99) 370 mg/dL (70-99) Troponin I High Sensitivity 76602 ng/L (4-75) White Blood Count 11.8 x10^3/uL (4.0-11.0) Red Blood Count 3.29 x10^6/uL (4.30-5.70) Hemoglobin 8.7 g/dL (13.0-17.5) Hematocrit 27.0 % (39.0-53.0) Mean Corpuscular Volume 82 fL (79-100) Mean Corpuscular Hemoglobin 27 pg (25-35) Mean Corpuscular Hemoglobin Concent 32 g/dL (31-37) Red Cell Distribution Width 15.4 % (11.5-14.5) Platelet Count 254 x10^3/uL (140-400) Sodium Level 138 mmol/L (136-145) Potassium Level 3.9 mmol/L (3.5-5.1) Chloride Level 105 mmol/L (98-107) Carbon Dioxide Level 17 mmol/L (21-32) Anion Gap 16 (6-14) Blood Urea Nitrogen 42 mg/dL (8-26) Creatinine 1.4 mg/dL (0.7-1.3) Estimated GFR (Cockcroft-Gault) 50.7 Glucose Level 350 mg/dL (70-99) Calcium Level 7.8 mg/dL (8.5-10.1) 25-Hydroxy Vitamin D Total 16.3 ng/mL (30-100) Thyroid Stimulating Hormone (TSH) 2.697 uIU/mL (0.358-3.74) Test 10/02/21 16:27 10/02/21 17:32 10/02/21 18:36 10/02/21 19:32 Glucose (Fingerstick) 341 mg/dL (70-99) 296 mg/dL (70-99) 221 mg/dL (70-99) 160 mg/dL (70-99) Test 10/02/21 20:34 10/02/21 20:40 10/02/21 21:38 10/02/21 22:41 Glucose (Fingerstick) 146 mg/dL (70-99) 123 mg/dL (70-99) 111 mg/dL (70-99) Sodium Level 142 mmol/L (136-145) Potassium Level 3.8 mmol/L (3.5-5.1) Chloride Level 108 mmol/L (98-107) Carbon Dioxide Level 22 mmol/L (21-32) Anion Gap 12 (6-14) Blood Urea Nitrogen 44 mg/dL (8-26) Creatinine 1.3 mg/dL (0.7-1.3) Estimated GFR (Cockcroft-Gault) 55.2 Glucose Level 135 mg/dL (70-99) Calcium Level 8.0 mg/dL (8.5-10.1) Phosphorus Level 2.6 mg/dL (2.6-4.7) Magnesium Level 1.7 mg/dL (1.8-2.4) Troponin I High Sensitivity 954731 ng/L (4-75) Test 10/02/21 23:51 10/03/21 00:57 10/03/21 02:00 10/03/21 02:52 Glucose (Fingerstick) 90 mg/dL (70-99) 115 mg/dL (70-99) 115 mg/dL (70-99) 120 mg/dL (70-99) Test 10/03/21 03:58 10/03/21 04:00 10/03/21 05:00 10/03/21 05:56 Glucose (Fingerstick) 116 mg/dL (70-99) 136 mg/dL (70-99) 133 mg/dL (70-99) White Blood Count 9.2 x10^3/uL (4.0-11.0) Red Blood Count 2.93 x10^6/uL (4.30-5.70) Hemoglobin 8.1 g/dL (13.0-17.5) Hematocrit 23.9 % (39.0-53.0) Mean Corpuscular Volume 82 fL (79-100) Mean Corpuscular Hemoglobin 28 pg (25-35) Mean Corpuscular Hemoglobin Concent 34 g/dL (31-37) Red Cell Distribution Width 15.2 % (11.5-14.5) Platelet Count 181 x10^3/uL (140-400) Sodium Level 142 mmol/L (136-145) Potassium Level 4.0 mmol/L (3.5-5.1) Chloride Level 108 mmol/L (98-107) Carbon Dioxide Level 22 mmol/L (21-32) Anion Gap 12 (6-14) Blood Urea Nitrogen 45 mg/dL (8-26) Creatinine 1.2 mg/dL (0.7-1.3) Estimated GFR (Cockcroft-Gault) 60.6 BUN/Creatinine Ratio 38 (6-20) Glucose Level 113 mg/dL (70-99) Calcium Level 8.0 mg/dL (8.5-10.1) Total Bilirubin 0.7 mg/dL (0.2-1.0) Aspartate Amino Transf (AST/SGOT) 2272 U/L (15-37) Alanine Aminotransferase (ALT/SGPT) 978 U/L (16-63) Alkaline Phosphatase 120 U/L (46-116) Total Protein 5.6 g/dL (6.4-8.2) Albumin 2.8 g/dL (3.4-5.0) Albumin/Globulin Ratio 1.0 (1.0-1.7) Triglycerides Level 35 mg/dL (0-150) Cholesterol Level 64 mg/dL (0-200) LDL Cholesterol, Calculated 23 mg/dL (0-100) VLDL Cholesterol, Calculated 7 mg/dL (0-40) Non-HDL Cholesterol Calculated 30 mg/dL (0-129) HDL Cholesterol 34 mg/dL (40-60) Cholesterol/HDL Ratio 1.9 Test 10/03/21 06:48 10/03/21 07:37 10/03/21 07:53 Glucose (Fingerstick) 145 mg/dL (70-99) 145 mg/dL (70-99) O2 Saturation 92 % (92-99) Arterial Blood pH 7.42 (7.35-7.45) Arterial Blood pCO2 at Patient Temp 26 mmHg (35-46) Arterial Blood pO2 at Patient Temp 77 mmHg (65-108) Arterial Blood HCO3 17 mmol/L (21-28) Arterial Blood Base Excess -7 mmol/L (-3-3) FiO2 40% Medications Current Medications Dextrose (Dextrose 50%-Water Syringe) 12.5 gm PRN Q15MIN PRN IV SEE COMMENTS; Start 10/02/21 at 10:15; Stop 10/02/21 at 22:41; Status DC Dextrose (Dextrose 50%-Water Syringe) 12.5 gm PRN Q15MIN PRN IV SEE COMMENTS; Start 10/02/21 at 22:30 Furosemide (Lasix) 40 mg 1X ONCE IVP Last administered on 10/02/21at 15:12; Start 10/02/21 at 13:45; Stop 10/02/21 at 13:46; Status DC Insulin Glargine (Lantus Syringe) 10 unit BID SQ Last administered on 10/03/21at 08:19; Start 10/03/21 at 09:00 Insulin Human Lispro (HumaLOG) 0-5 UNITS TIDWMEALS SQ ; Start 10/02/21 at 12:00; Stop 10/02/21 at 22:44; Status DC Insulin Human Lispro (HumaLOG) 0-7 UNITS TIDWMEALS SQ ; Start 10/03/21 at 08:00 Insulin Human Regular 100 unit/ Sodium Chloride 101 ml @ 0 mls/hr CONT PRN PRN IV PER PROTOCOL Last administered on 10/02/21at 17:47; Start 10/02/21 at 11:00 Magnesium Sulfate 50 ml @ 25 mls/hr 1X ONCE IV Last administered on 10/02/21at 23:52; Start 10/02/21 at 22:45; Stop 10/03/21 at 00:44; Status DC Ondansetron HCl (Zofran) 4 mg PRN Q8HRS PRN IVP NAUSEA/VOMITING Last adminis tered on 10/02/21at 11:17; Start 10/02/21 at 10:15; Stop 10/03/21 at 10:14 Potassium Phosphate 13.6 mmol/Sodium Chloride 104.5333 ml @ 52.267 m... Q2H IV Last administered on 10/03/21at 00:58; Start 10/02/21 at 22:45; Stop 10/03/21 at 02:44; Status DC Sodium Chloride 1,000 ml @ 100 mls/hr Q10H IV ; Start 10/02/21 at 10:15; Stop 10/02/21 at 19:51; Status DC Sodium Chloride 1,000 ml @ 250 mls/hr Q4H IV Last administered on 10/02/21at 11:16; Start 10/02/21 at 11:15; Stop 10/02/21 at 13:36; Status DC Sucralfate (Carafate Oral Susp) 1 gm QIDACHS PO Last administered on 10/03/21at 08:05; Start 10/02/21 at 16:30 Vitals/I & O Vital Sign - Last 24 Hours 10/02/21 10/02/21 10/02/21 10/02/21 09:36 09:45 09:52 09:52 Temp 97.6 97.6 Pulse 143 142 166 Resp B/P (MAP) 101/60 (74) 128/93 (105) Pulse Ox 88 99 O2 Delivery Nasal Cannula Nasal Cannula O2 Flow Rate 2.5 10/02/21 10/02/21 10/02/21 10/02/21 10:01 10:05 10:11 10:16 Temp 98.0 98.0 Pulse 88 97 100 107 Resp 24 B/P (MAP) 104/60 (75) 106/70 102/64 (77) 105/68 (80) Pulse Ox 95 94 95 O2 Delivery Nasal Cannula Nasal Cannula Nasal Cannula O2 Flow Rate 5.0 3.0 3.0 10/02/21 10/02/21 10/02/21 10/02/21 10:30 10:49 10:49 11:00 Temp 97.9 97.9 97.9 97.9 Pulse 96 100 100 100 Resp B/P (MAP) 109/67 (81) 115/70 115/70 (85) 117/65 (82) Pulse Ox 96 100 95 O2 Delivery Room Air Nasal Cannula Nasal Cannula O2 Flow Rate 3.0 3.0 3.0 10/02/21 10/02/21 10/02/21 10/02/21 11:00 11:10 12:00 12:00 Temp 97.7 97.7 97.4 97.7 97.7 97.4 Pulse 101 101 104 Resp 19 B/P (MAP) 106/66 106/66 109/69 Pulse Ox 97 91 O2 Delivery Nasal Cannula Nasal Cannula Nasal Cannula O2 Flow Rate 3.0 3.0 6.0 10/02/21 10/02/21 10/02/21 10/02/21 12:10 12:30 12:57 13:00 Temp 97.4 97.4 97.4 97.4 Pulse 102 13 104 Resp 18 18 B/P (MAP) 109/69 112/64 112/64 Pulse Ox 92 O2 Delivery Nasal Cannula Nasal Cannula O2 Flow Rate 6.0 8.0 10/02/21 10/02/21 10/02/21 10/02/21 13:12 14:00 14:12 14:41 Temp 97.3 97.3 97.3 97.3 Pulse 104 106 110 104 Resp 18 17 19 20 B/P (MAP) 108/65 110/68 110/68 Pulse Ox 92 100 O2 Delivery NonRebreather Mask O2 Flow Rate 8.0 10/02/21 10/02/21 10/02/21 10/02/21 14:51 15:00 15:12 15:30 Temp 97.8 97.8 Pulse 100 102 105 Resp 20 16 20 B/P (MAP) 84/33 119/68 119/66 Pulse Ox 94 99 97 O2 Delivery NonRebreather Mask NonRebreather Mask BiPAP/CPAP O2 Flow Rate 15.0 8.0 10/02/21 10/02/21 10/02/21 10/02/21 16:00 16:00 17:00 17:29 Temp 98.9 98.9 Pulse 102 104 Resp 17 16 B/P (MAP) 124/70 91/62 Pulse Ox 100 96 96 O2 Delivery BiPAP/CPAP Bi-pap BiPAP/CPAP BiPAP/CPAP O2 Flow Rate 10/02/21 10/02/21 10/02/21 10/02/21 17:30 18:00 19:00 19:15 Pulse 100 100 Resp 20 20 B/P (MAP) 96/63 104/72 111/69 99/61 Pulse Ox 96 100 O2 Delivery BiPAP/CPAP BiPAP/CPAP O2 Flow Rate 10/02/21 10/02/21 10/02/21 10/02/21 19:30 19:45 20:00 20:00 Temp 97.5 97.5 Pulse 101 Resp 20 B/P (MAP) 90/67 80/51 92/68 Pulse Ox 99 O2 Delivery BiPAP/CPAP O2 Flow Rate 10/02/21 10/02/21 10/02/21 10/02/21 20:00 20:04 20:15 20:30 B/P (MAP) 92/68 93/64 Pulse Ox 96 O2 Delivery Bi-pap BiPAP/CPAP 10/02/21 10/02/21 10/02/21 10/02/21 20:45 21:00 21:15 21:30 Pulse 97 Resp 20 B/P (MAP) 91/66 83/62 91/66 93/66 Pulse Ox 97 O2 Delivery BiPAP/CPAP 10/02/21 10/02/21 10/02/21 10/02/21 21:45 22:00 22:00 22:15 Pulse 94 Resp 20 B/P (MAP) 97/67 98/66 90/60 Pulse Ox 96 100 O2 Delivery BiPAP/CPAP BiPAP/CPAP 10/02/21 10/02/21 10/02/21 10/02/21 22:30 22:45 23:00 23:15 Pulse 104 Resp 18 B/P (MAP) 101/63 82/63 84/61 104/72 Pulse Ox 100 O2 Delivery BiPAP/CPAP 10/02/21 10/02/21 10/02/21 10/02/21 23:30 23:45 23:59 23:59 B/P (MAP) 101/70 91/67 O2 Delivery Bi-pap O2 Flow Rate 10/03/21 10/03/21 10/03/21 10/03/21 00:00 00:00 00:15 00:30 Temp 97.5 97.5 Pulse 93 Resp 18 B/P (MAP) 92/64 92/64 91/65 Pulse Ox 96 99 O2 Delivery BiPAP/CPAP BiPAP/CPAP 10/03/21 10/03/21 10/03/21 10/03/21 00:45 01:00 01:15 01:30 Pulse 102 Resp 18 B/P (MAP) 103/70 97/73 98/65 98/61 Pulse Ox 98 O2 Delivery BiPAP/CPAP 10/03/21 10/03/21 10/03/21 10/03/21 01:45 02:00 02:00 02:30 Pulse 105 Resp 18 B/P (MAP) 92/68 90/68 100/70 Pulse Ox 97 99 O2 Delivery BiPAP/CPAP BiPAP/CPAP 10/03/21 10/03/21 10/03/21 10/03/21 03:00 03:30 04:00 04:00 Temp 97.4 97.4 Pulse 103 89 Resp 20 20 B/P (MAP) 99/70 100/72 100/60 Pulse Ox 100 100 O2 Delivery BiPAP/CPAP Bi-pap BiPAP/CPAP 10/03/21 10/03/21 10/03/21 10/03/21 04:30 05:00 05:51 06:00 Pulse 94 97 Resp 20 20 B/P (MAP) 106/68 91/64 103/76 Pulse Ox 93 99 95 O2 Delivery BiPAP/CPAP BiPAP/CPAP Nasal Cannula O2 Flow Rate 5.0 10/03/21 10/03/21 06:30 08:00 Pulse 91 Resp 20 B/P (MAP) 109/69 Pulse Ox 95 O2 Delivery Nasal Cannula Nasal Cannula O2 Flow Rate 5.0 5.0 Intake and Output 10/02/21 10/02/21 10/03/21 15:00 23:00 07:00 Intake Total 4796 ml 514 ml Output Total 1715 ml 396 ml Balance 4796 ml -1715 ml 118 ml GEOVANNA LOYA MD October 03, 2021 09:33
--- NOTE | 2021-10-03 10:29 | PDOC ---
G I PROGRESS NOTE Reason for Follow-up Acute blood loss anemia Subjective No further bleeding Physical Exam Lungs clear CV S1 S2 AABD +BS, soft, nontender Review of Relevant I have reviewed the following items rabia (where applicable) has been applied. Labs Laboratory Tests Test 10/02/21 08:08 10/02/21 08:46 10/02/21 09:00 10/02/21 09:04 White Blood Count 9.2 x10^3/uL (4.0-11.0) Red Blood Count 2.60 x10^6/uL (4.30-5.70) Hemoglobin 7.0 g/dL (13.0-17.5) Hematocrit 21.5 % (39.0-53.0) Mean Corpuscular Volume 83 fL (79-100) Mean Corpuscular Hemoglobin 27 pg (25-35) Mean Corpuscular Hemoglobin Concent 33 g/dL (31-37) Red Cell Distribution Width 15.4 % (11.5-14.5) Platelet Count 217 x10^3/uL (140-400) Neutrophils (%) (Auto) 53 % (31-73) Lymphocytes (%) (Auto) 35 % (24-48) Monocytes (%) (Auto) 9 % (0-9) Eosinophils (%) (Auto) 2 % (0-3) Basophils (%) (Auto) 1 % (0-3) Neutrophils # (Auto) 4.9 x10^3/uL (1.8-7.7) Lymphocytes # (Auto) 3.2 x10^3/uL (1.0-4.8) Monocytes # (Auto) 0.8 x10^3/uL (0.0-1.1) Eosinophils # (Auto) 0.2 x10^3/uL (0.0-0.7) Basophils # (Auto) 0.1 x10^3/uL (0.0-0.2) Prothrombin Time 15.0 SEC (11.7-14.0) Prothromb Time International Ratio 1.2 (0.8-1.1) Activated Partial Thromboplast Time 27 SEC (24-38) Sodium Level 136 mmol/L (136-145) Potassium Level 3.5 mmol/L (3.5-5.1) Chloride Level 100 mmol/L (98-107) Carbon Dioxide Level 14 mmol/L (21-32) Anion Gap 22 (6-14) Blood Urea Nitrogen 48 mg/dL (8-26) Creatinine 1.5 mg/dL (0.7-1.3) Estimated GFR (Cockcroft-Gault) 46.8 BUN/Creatinine Ratio 32 (6-20) Glucose Level 520 mg/dL (70-99) Calcium Level 8.7 mg/dL (8.5-10.1) Magnesium Level 1.8 mg/dL (1.8-2.4) Total Bilirubin 0.7 mg/dL (0.2-1.0) Aspartate Amino Transf (AST/SGOT) 39 U/L (15-37) Alanine Aminotransferase (ALT/SGPT) 23 U/L (16-63) Alkaline Phosphatase 85 U/L (46-116) Creatine Kinase 163 U/L (39-308) Creatine Kinase MB (Mass) 9.3 ng/mL (0.0-3.6) Creatine Kinase MB Relative Index 5.7 % (0-4) Troponin I High Sensitivity 1580 ng/L (4-75) Total Protein 6.0 g/dL (6.4-8.2) Albumin 3.1 g/dL (3.4-5.0) Albumin/Globulin Ratio 1.1 (1.0-1.7) Lipase 67 U/L (73-393) Coronavirus (COVID-19)(PCR) Not detected (NOT DETECTD) SARS-CoV-2 Antigen (Rapid) Negative (NEGATIVE) Stool Occult Blood Positive (NEG) Urine Collection Type Unknown Urine Color (Auto) Light yellow Urine Turbidity Clear Urine pH (Auto) 5.0 (<5.0-8.0) Urine Specific [place] 1.023 (1.000-1.030) Urine Protein (Auto) Negative mg/dL (Negative) Urine Glucose (Auto)(UA) >=1000 mg/dL (Negative) Urine Ketones (Auto) 20 mg/dL (Negative) Urine Blood (Auto) Negative (Negative) Urine Nitrite Negative (Negative) Urine Bilirubin (Auto) Negative (Negative) Urine Urobilinogen (Auto) Normal mg/dL (Normal) Urine Leukocyte Esterase (Auto) Negative (Negative) Urine RBC 0 /HPF (0-2) Urine WBC 5-10 /HPF (0-4) Urine Squamous Epithelial Cells Occ /LPF Urine Bacteria 0 /HPF (0-FEW) Urine Hyaline Casts Few /HPF Urine Mucus Slight /LPF Test 10/02/21 12:04 10/02/21 12:20 10/02/21 12:30 10/02/21 13:10 Glucose (Fingerstick) 459 mg/dL (70-99) 462 mg/dL (70-99) Sodium Level 136 mmol/L (136-145) Potassium Level 4.9 mmol/L (3.5-5.1) Chloride Level 104 mmol/L (98-107) Carbon Dioxide Level 14 mmol/L (21-32) Anion Gap 18 (6-14) Blood Urea Nitrogen 45 mg/dL (8-26) Creatinine 1.4 mg/dL (0.7-1.3) Estimated GFR (Cockcroft-Gault) 50.7 Glucose Level 494 mg/dL (70-99) Calcium Level 7.8 mg/dL (8.5-10.1) Phosphorus Level 4.8 mg/dL (2.6-4.7) Magnesium Level 1.8 mg/dL (1.8-2.4) O2 Saturation 83 % (92-99) Arterial Blood pH 7.28 (7.35-7.45) Arterial Blood pCO2 at Patient Temp 25 mmHg (35-46) Arterial Blood pO2 at Patient Temp 59 mmHg (65-108) Arterial Blood HCO3 12 mmol/L (21-28) Arterial Blood Base Excess -14 mmol/L (-3-3) FiO2 44 Test 10/02/21 14:16 10/02/21 15:10 10/02/21 15:22 10/02/21 16:00 Glucose (Fingerstick) 421 mg/dL (70-99) 370 mg/dL (70-99) Troponin I High Sensitivity 80696 ng/L (4-75) White Blood Count 11.8 x10^3/uL (4.0-11.0) Red Blood Count 3.29 x10^6/uL (4.30-5.70) Hemoglobin 8.7 g/dL (13.0-17.5) Hematocrit 27.0 % (39.0-53.0) Mean Corpuscular Volume 82 fL (79-100) Mean Corpuscular Hemoglobin 27 pg (25-35) Mean Corpuscular Hemoglobin Concent 32 g/dL (31-37) Red Cell Distribution Width 15.4 % (11.5-14.5) Platelet Count 254 x10^3/uL (140-400) Sodium Level 138 mmol/L (136-145) Potassium Level 3.9 mmol/L (3.5-5.1) Chloride Level 105 mmol/L (98-107) Carbon Dioxide Level 17 mmol/L (21-32) Anion Gap 16 (6-14) Blood Urea Nitrogen 42 mg/dL (8-26) Creatinine 1.4 mg/dL (0.7-1.3) Estimated GFR (Cockcroft-Gault) 50.7 Glucose Level 350 mg/dL (70-99) Calcium Level 7.8 mg/dL (8.5-10.1) 25-Hydroxy Vitamin D Total 16.3 ng/mL (30-100) Thyroid Stimulating Hormone (TSH) 2.697 uIU/mL (0.358-3.74) Test 10/02/21 16:27 10/02/21 17:32 10/02/21 18:36 10/02/21 19:32 Glucose (Fingerstick) 341 mg/dL (70-99) 296 mg/dL (70-99) 221 mg/dL (70-99) 160 mg/dL (70-99) Test 10/02/21 20:34 10/02/21 20:40 10/02/21 21:38 10/02/21 22:41 Glucose (Fingerstick) 146 mg/dL (70-99) 123 mg/dL (70-99) 111 mg/dL (70-99) Sodium Level 142 mmol/L (136-145) Potassium Level 3.8 mmol/L (3.5-5.1) Chloride Level 108 mmol/L (98-107) Carbon Dioxide Level 22 mmol/L (21-32) Anion Gap 12 (6-14) Blood Urea Nitrogen 44 mg/dL (8-26) Creatinine 1.3 mg/dL (0.7-1.3) Estimated GFR (Cockcroft-Gault) 55.2 Glucose Level 135 mg/dL (70-99) Calcium Level 8.0 mg/dL (8.5-10.1) Phosphorus Level 2.6 mg/dL (2.6-4.7) Magnesium Level 1.7 mg/dL (1.8-2.4) Troponin I High Sensitivity 791271 ng/L (4-75) Test 10/02/21 23:51 10/03/21 00:57 10/03/21 02:00 10/03/21 02:52 Glucose (Fingerstick) 90 mg/dL (70-99) 115 mg/dL (70-99) 115 mg/dL (70-99) 120 mg/dL (70-99) Test 10/03/21 03:58 10/03/21 04:00 10/03/21 05:00 10/03/21 05:56 Glucose (Fingerstick) 116 mg/dL (70-99) 136 mg/dL (70-99) 133 mg/dL (70-99) White Blood Count 9.2 x10^3/uL (4.0-11.0) Red Blood Count 2.93 x10^6/uL (4.30-5.70) Hemoglobin 8.1 g/dL (13.0-17.5) Hematocrit 23.9 % (39.0-53.0) Mean Corpuscular Volume 82 fL (79-100) Mean Corpuscular Hemoglobin 28 pg (25-35) Mean Corpuscular Hemoglobin Concent 34 g/dL (31-37) Red Cell Distribution Width 15.2 % (11.5-14.5) Platelet Count 181 x10^3/uL (140-400) Sodium Level 142 mmol/L (136-145) Potassium Level 4.0 mmol/L (3.5-5.1) Chloride Level 108 mmol/L (98-107) Carbon Dioxide Level 22 mmol/L (21-32) Anion Gap 12 (6-14) Blood Urea Nitrogen 45 mg/dL (8-26) Creatinine 1.2 mg/dL (0.7-1.3) Estimated GFR (Cockcroft-Gault) 60.6 BUN/Creatinine Ratio 38 (6-20) Glucose Level 113 mg/dL (70-99) Calcium Level 8.0 mg/dL (8.5-10.1) Total Bilirubin 0.7 mg/dL (0.2-1.0) Aspartate Amino Transf (AST/SGOT) 2272 U/L (15-37) Alanine Aminotransferase (ALT/SGPT) 978 U/L (16-63) Alkaline Phosphatase 120 U/L (46-116) Total Protein 5.6 g/dL (6.4-8.2) Albumin 2.8 g/dL (3.4-5.0) Albumin/Globulin Ratio 1.0 (1.0-1.7) Triglycerides Level 35 mg/dL (0-150) Cholesterol Level 64 mg/dL (0-200) LDL Cholesterol, Calculated 23 mg/dL (0-100) VLDL Cholesterol, Calculated 7 mg/dL (0-40) Non-HDL Cholesterol Calculated 30 mg/dL (0-129) HDL Cholesterol 34 mg/dL (40-60) Cholesterol/HDL Ratio 1.9 Test 10/03/21 06:48 10/03/21 07:37 10/03/21 07:53 Glucose (Fingerstick) 145 mg/dL (70-99) 145 mg/dL (70-99) O2 Saturation 92 % (92-99) Arterial Blood pH 7.42 (7.35-7.45) Arterial Blood pCO2 at Patient Temp 26 mmHg (35-46) Arterial Blood pO2 at Patient Temp 77 mmHg (65-108) Arterial Blood HCO3 17 mmol/L (21-28) Arterial Blood Base Excess -7 mmol/L (-3-3) FiO2 40% Laboratory Tests Test 10/02/21 12:04 10/02/21 12:20 10/02/21 12:30 10/02/21 13:10 Glucose (Fingerstick) 459 mg/dL (70-99) 462 mg/dL (70-99) Sodium Level 136 mmol/L (136-145) Potassium Level 4.9 mmol/L (3.5-5.1) Chloride Level 104 mmol/L (98-107) Carbon Dioxide Level 14 mmol/L (21-32) Anion Gap 18 (6-14) Blood Urea Nitrogen 45 mg/dL (8-26) Creatinine 1.4 mg/dL (0.7-1.3) Estimated GFR (Cockcroft-Gault) 50.7 Glucose Level 494 mg/dL (70-99) Calcium Level 7.8 mg/dL (8.5-10.1) Phosphorus Level 4.8 mg/dL (2.6-4.7) Magnesium Level 1.8 mg/dL (1.8-2.4) O2 Saturation 83 % (92-99) Arterial Blood pH 7.28 (7.35-7.45) Arterial Blood pCO2 at Patient Temp 25 mmHg (35-46) Arterial Blood pO2 at Patient Temp 59 mmHg (65-108) Arterial Blood HCO3 12 mmol/L (21-28) Arterial Blood Base Excess -14 mmol/L (-3-3) FiO2 44 Test 10/02/21 14:16 10/02/21 15:10 10/02/21 15:22 10/02/21 16:00 Glucose (Fingerstick) 421 mg/dL (70-99) 370 mg/dL (70-99) Troponin I High Sensitivity 83906 ng/L (4-75) White Blood Count 11.8 x10^3/uL (4.0-11.0) Red Blood Count 3.29 x10^6/uL (4.30-5.70) Hemoglobin 8.7 g/dL (13.0-17.5) Hematocrit 27.0 % (39.0-53.0) Mean Corpuscular Volume 82 fL (79-100) Mean Corpuscular Hemoglobin 27 pg (25-35) Mean Corpuscular Hemoglobin Concent 32 g/dL (31-37) Red Cell Distribution Width 15.4 % (11.5-14.5) Platelet Count 254 x10^3/uL (140-400) Sodium Level 138 mmol/L (136-145) Potassium Level 3.9 mmol/L (3.5-5.1) Chloride Level 105 mmol/L (98-107) Carbon Dioxide Level 17 mmol/L (21-32) Anion Gap 16 (6-14) Blood Urea Nitrogen 42 mg/dL (8-26) Creatinine 1.4 mg/dL (0.7-1.3) Estimated GFR (Cockcroft-Gault) 50.7 Glucose Level 350 mg/dL (70-99) Calcium Level 7.8 mg/dL (8.5-10.1) 25-Hydroxy Vitamin D Total 16.3 ng/mL (30-100) Thyroid Stimulating Hormone (TSH) 2.697 uIU/mL (0.358-3.74) Test 10/02/21 16:27 10/02/21 17:32 10/02/21 18:36 10/02/21 19:32 Glucose (Fingerstick) 341 mg/dL (70-99) 296 mg/dL (70-99) 221 mg/dL (70-99) 160 mg/dL (70-99) Test 10/02/21 20:34 10/02/21 20:40 10/02/21 21:38 10/02/21 22:41 Glucose (Fingerstick) 146 mg/dL (70-99) 123 mg/dL (70-99) 111 mg/dL (70-99) Sodium Level 142 mmol/L (136-145) Potassium Level 3.8 mmol/L (3.5-5.1) Chloride Level 108 mmol/L (98-107) Carbon Dioxide Level 22 mmol/L (21-32) Anion Gap 12 (6-14) Blood Urea Nitrogen 44 mg/dL (8-26) Creatinine 1.3 mg/dL (0.7-1.3) Estimated GFR (Cockcroft-Gault) 55.2 Glucose Level 135 mg/dL (70-99) Calcium Level 8.0 mg/dL (8.5-10.1) Phosphorus Level 2.6 mg/dL (2.6-4.7) Magnesium Level 1.7 mg/dL (1.8-2.4) Troponin I High Sensitivity 863865 ng/L (4-75) Test 10/02/21 23:51 10/03/21 00:57 10/03/21 02:00 10/03/21 02:52 Glucose (Fingerstick) 90 mg/dL (70-99) 115 mg/dL (70-99) 115 mg/dL (70-99) 120 mg/dL (70-99) Test 10/03/21 03:58 10/03/21 04:00 10/03/21 05:00 10/03/21 05:56 Glucose (Fingerstick) 116 mg/dL (70-99) 136 mg/dL (70-99) 133 mg/dL (70-99) White Blood Count 9.2 x10^3/uL (4.0-11.0) Red Blood Count 2.93 x10^6/uL (4.30-5.70) Hemoglobin 8.1 g/dL (13.0-17.5) Hematocrit 23.9 % (39.0-53.0) Mean Corpuscular Volume 82 fL (79-100) Mean Corpuscular Hemoglobin 28 pg (25-35) Mean Corpuscular Hemoglobin Concent 34 g/dL (31-37) Red Cell Distribution Width 15.2 % (11.5-14.5) Platelet Count 181 x10^3/uL (140-400) Sodium Level 142 mmol/L (136-145) Potassium Level 4.0 mmol/L (3.5-5.1) Chloride Level 108 mmol/L (98-107) Carbon Dioxide Level 22 mmol/L (21-32) Anion Gap 12 (6-14) Blood Urea Nitrogen 45 mg/dL (8-26) Creatinine 1.2 mg/dL (0.7-1.3) Estimated GFR (Cockcroft-Gault) 60.6 BUN/Creatinine Ratio 38 (6-20) Glucose Level 113 mg/dL (70-99) Calcium Level 8.0 mg/dL (8.5-10.1) Total Bilirubin 0.7 mg/dL (0.2-1.0) Aspartate Amino Transf (AST/SGOT) 2272 U/L (15-37) Alanine Aminotransferase (ALT/SGPT) 978 U/L (16-63) Alkaline Phosphatase 120 U/L (46-116) Total Protein 5.6 g/dL (6.4-8.2) Albumin 2.8 g/dL (3.4-5.0) Albumin/Globulin Ratio 1.0 (1.0-1.7) Triglycerides Level 35 mg/dL (0-150) Cholesterol Level 64 mg/dL (0-200) LDL Cholesterol, Calculated 23 mg/dL (0-100) VLDL Cholesterol, Calculated 7 mg/dL (0-40) Non-HDL Cholesterol Calculated 30 mg/dL (0-129) HDL Cholesterol 34 mg/dL (40-60) Cholesterol/HDL Ratio 1.9 Test 10/03/21 06:48 10/03/21 07:37 10/03/21 07:53 Glucose (Fingerstick) 145 mg/dL (70-99) 145 mg/dL (70-99) O2 Saturation 92 % (92-99) Arterial Blood pH 7.42 (7.35-7.45) Arterial Blood pCO2 at Patient Temp 26 mmHg (35-46) Arterial Blood pO2 at Patient Temp 77 mmHg (65-108) Arterial Blood HCO3 17 mmol/L (21-28) Arterial Blood Base Excess -7 mmol/L (-3-3) FiO2 40% Medications Current Medications Sodium Chloride 1,000 ml @ 1,000 mls/hr 1X ONCE IV Last administered on 10/02/21at 08:15; Start 10/02/21 at 08:15; Stop 10/02/21 at 09:14; Status DC Pantoprazole Sodium (PROTONIX VIAL for IV PUSH) 80 mg 1X ONCE IVP Last administered on 10/02/21at 08:27; Start 10/02/21 at 08:15; Stop 10/02/21 at 08:20; Status DC Amiodarone HCl 150 mg/Dextrose 103 ml @ 618 mls/hr 1X ONCE IV Last administered on 10/02/21at 08:38; Start 10/02/21 at 08:15; Stop 10/02/21 at 08:24; Status DC Amiodarone HCl 450 mg/Dextrose 259 ml @ 34.533 mls/ hr CONT PRN IV SEE I/O RECORD Last administered on 10/02/21at 18:50; Start 10/02/21 at 08:15; Stop 10/03/21 at 08:12; Status DC Sodium Chloride 1,000 ml @ 1,000 mls/hr 1X ONCE IV Last administered on 10/02/21at 08:30; Start 10/02/21 at 08:30; Stop 10/02/21 at 09:29; Status DC Sodium Chloride 1,000 ml @ 1,000 mls/hr 1X ONCE IV Last administered on 10/02/21at 08:45; Start 10/02/21 at 09:00; Stop 10/02/21 at 09:59; Status DC Insulin Human Regular (HumuLIN R VIAL) 10 unit 1X ONCE SQ Last administered on 10/02/21at 09:17; Start 10/02/21 at 08:45; Stop 10/02/21 at 08:56; Status DC Pantoprazole Sodium 80 mg/ Sodium Chloride 100 ml @ 10 mls/hr Q10H IV Last administered on 10/03/21at 05:04; Start 10/02/21 at 09:00 Norepinephrine Bitartrate 8 mg/ Dextrose 258 ml @ 26.374 mls/ hr 1X ONCE IV Last administered on 10/02/21at 09:31; Start 10/02/21 at 09:15; Stop 10/02/21 at 19:01; Status DC Etomidate (Amidate) 10 mg 1X ONCE IV Last administered on 10/02/21at 09:52; Start 10/02/21 at 09:30; Stop 10/02/21 at 09:32; Status DC Fentanyl Citrate (Fentanyl 2ml Vial) 100 mcg 1X ONCE IVP Last administered on 10/02/21at 09:52; Start 10/02/21 at 09:30; Stop 10/02/21 at 09:32; Status DC Ondansetron HCl (Zofran) 4 mg PRN Q8HRS PRN IVP NAUSEA/VOMITING Last administered on 10/02/21at 11:17; Start 10/02/21 at 10:15; Stop 10/03/21 at 10:14; Status DC Sodium Chloride 1,000 ml @ 100 mls/hr Q10H IV ; Start 10/02/21 at 10:15; Stop 10/02/21 at 19:51; Status DC Insulin Human Lispro (HumaLOG) 0-5 UNITS TIDWMEALS SQ ; Start 10/02/21 at 12:00; Stop 10/02/21 at 22:44; Status DC Dextrose (Dextrose 50%-Water Syringe) 12.5 gm PRN Q15MIN PRN IV SEE COMMENTS; Start 10/02/21 at 10:15; Stop 10/02/21 at 22:41; Status DC Sodium Chloride 1,000 ml @ 250 mls/hr Q4H IV Last administered on 10/02/21at 11:16; Start 10/02/21 at 11:15; Stop 10/02/21 at 13:36; Status DC Insulin Human Regular 100 unit/ Sodium Chloride 101 ml @ 0 mls/hr CONT PRN PRN IV PER PROTOCOL Last administered on 10/02/21at 17:47; Start 10/02/21 at 11:00 Furosemide (Lasix) 40 mg 1X ONCE IVP Last administered on 10/02/21at 15:12; Start 10/02/21 at 13:45; Stop 10/02/21 at 13:46; Status DC Sucralfate (Carafate Oral Susp) 1 gm QIDACHS PO Last administered on 10/03/21at 08:05; Start 10/02/21 at 16:30 Potassium Phosphate 13.6 mmol/Sodium Chloride 104.5333 ml @ 52.267 m... Q2H IV Last administered on 10/03/21at 00:58; Start 10/02/21 at 22:45; Stop 10/03/21 at 02:44; Status DC Insulin Glargine (Lantus Syringe) 10 unit BID SQ Last administered on 10/03/21at 08:19; Start 10/03/21 at 09:00 Insulin Human Lispro (HumaLOG) 0-7 UNITS TIDWMEALS SQ ; Start 10/03/21 at 08:00 Dextrose (Dextrose 50%-Water Syringe) 12.5 gm PRN Q15MIN PRN IV SEE COMMENTS; Start 10/02/21 at 22:30 Magnesium Sulfate 50 ml @ 25 mls/hr 1X ONCE IV Last administered on 10/02/21at 23:52; Start 10/02/21 at 22:45; Stop 10/03/21 at 00:44; Status DC Active Scripts Active Augmentin 875-125 Tablet (Amoxicillin/Potassium Clav) 1 Each Tablet 1 Tab PO BID 10 Days Senokot-S Tablet (Sennosides/Docusate Sodium) 1 Each Tablet 1 Tab PO BID Percocet 5-325 Mg Tablet (Oxycodone/Acetaminophen) 1 Each Tablet 1-2 Tab PO Q4-6HRS Ferrous Sulfate 325 Mg Tablet 325 Mg PO TIDAFTMEAL 90 Days Vitamin B-12 (Cyanocobalamin (Vitamin B-12)) 1,000 Mcg Tablet 1,000 Mcg PO DAILY Tablet ( Vit#96/Ferrous Fum/Fa) 1 Each Tablet 1 Tab PO DAILY Aspirin Ec (Aspirin) 325 Mg Tablet. 325 Mg PO [id number] Metoprolol Tartrate 25 Mg Tablet 25 Mg PO BID Atorvastatin Calcium 40 Mg Tablet 40 Mg PO QHS Reported Protonix (Pantoprazole Sodium) 20 Mg Tablet. 40 Mg PO DAILY Metformin Hcl Er (Metformin Hcl) 750 Mg Tab.er.24h 750 Mg PO [id number] Hydrochlorothiazide Tablet (Hydrochlorothiazide) 25 Mg Tablet 25 Mg PO DAILY Vitals/I & O Vital Sign - Last 24 Hours 10/02/21 10/02/21 10/02/21 5/27/22 10:30 10:49 10:49 11:00 Temp 97.9 97.9 97.9 97.9 Pulse 96 100 100 100 Resp B/P (MAP) 109/67 (81) 115/70 115/70 (85) 117/65 (82) Pulse Ox 96 100 95 O2 Delivery Room Air Nasal Cannula Nasal Cannula O2 Flow Rate 3.0 3.0 3.0 10/02/21 10/02/21 10/02/21 10/02/21 11:00 11:10 12:00 12:00 Temp 97.7 97.7 97.4 97.7 97.7 97.4 Pulse 101 101 104 Resp 19 B/P (MAP) 106/66 106/66 109/69 Pulse Ox 97 91 O2 Delivery Nasal Cannula Nasal Cannula Nasal Cannula O2 Flow Rate 3.0 3.0 6.0 10/02/21 10/02/21 10/02/21 10/02/21 12:10 12:30 12:57 13:00 Temp 97.4 97.4 97.4 97.4 Pulse 102 13 104 Resp B/P (MAP) 109/69 112/64 112/64 Pulse Ox 92 O2 Delivery Nasal Cannula Nasal Cannula O2 Flow Rate 6.0 8.0 10/02/21 10/02/21 10/02/21 10/02/21 13:12 14:00 14:12 14:41 Temp 97.3 97.3 97.3 97.3 Pulse 104 106 110 104 Resp 20 B/P (MAP) 108/65 110/68 110/68 Pulse Ox 92 100 O2 Delivery NonRebreather Mask O2 Flow Rate 8.0 10/02/21 10/02/21 10/02/21 10/02/21 14:51 15:00 15:12 15:30 Temp 97.8 97.8 Pulse 100 102 105 Resp 16 20 B/P (MAP) 84/33 119/68 119/66 Pulse Ox 94 99 97 O2 Delivery NonRebreather Mask NonRebreather Mask BiPAP/CPAP O2 Flow Rate 15.0 8.0 10/02/21 10/02/21 10/02/21 10/02/21 16:00 16:00 17:00 17:29 Temp 98.9 98.9 Pulse 102 104 Resp 17 16 B/P (MAP) 124/70 91/62 Pulse Ox 100 96 96 O2 Delivery BiPAP/CPAP Bi-pap BiPAP/CPAP BiPAP/CPAP O2 Flow Rate 10/02/21 10/02/21 10/02/21 10/02/21 17:30 18:00 19:00 19:15 Pulse 100 100 Resp 20 20 B/P (MAP) 96/63 104/72 111/69 99/61 Pulse Ox 96 100 O2 Delivery BiPAP/CPAP BiPAP/CPAP O2 Flow Rate 10/02/21 10/02/21 10/02/21 10/02/21 19:30 19:45 20:00 20:00 Temp 97.5 97.5 Pulse 101 Resp 20 B/P (MAP) 90/67 80/51 92/68 Pulse Ox 99 O2 Delivery BiPAP/CPAP O2 Flow Rate 10/02/21 10/02/21 10/02/21 10/02/21 20:00 20:04 20:15 20:30 B/P (MAP) 92/68 93/64 Pulse Ox 96 O2 Delivery Bi-pap BiPAP/CPAP 10/02/21 10/02/21 10/02/21 10/02/21 20:45 21:00 21:15 21:30 Pulse 97 Resp 20 B/P (MAP) 91/66 83/62 91/66 93/66 Pulse Ox 97 O2 Delivery BiPAP/CPAP 10/02/21 10/02/21 10/02/21 10/02/21 21:45 22:00 22:00 22:15 Pulse 94 Resp 20 B/P (MAP) 97/67 98/66 90/60 Pulse Ox 96 100 O2 Delivery BiPAP/CPAP BiPAP/CPAP 10/02/21 10/02/21 10/02/21 10/02/21 22:30 22:45 23:00 23:15 Pulse 104 Resp 18 B/P (MAP) 101/63 82/63 84/61 104/72 Pulse Ox 100 O2 Delivery BiPAP/CPAP 10/02/21 10/02/21 10/02/21 10/02/21 23:30 23:45 23:59 23:59 B/P (MAP) 101/70 91/67 O2 Delivery Bi-pap O2 Flow Rate 10/03/21 10/03/21 10/03/2110/03/22 00:00 00:00 00:15 00:30 Temp 97.5 97.5 Pulse 93 Resp 18 B/P (MAP) 92/64 92/64 91/65 Pulse Ox 96 99 O2 Delivery BiPAP/CPAP BiPAP/CPAP 10/03/21 10/03/21 10/03/21 10/03/21 00:45 01:00 01:15 01:30 Pulse 102 Resp 18 B/P (MAP) 103/70 97/73 98/65 98/61 Pulse Ox 98 O2 Delivery BiPAP/CPAP 10/03/21 10/03/21 10/03/21 10/03/21 01:45 02:00 02:00 02:30 Pulse 105 Resp 18 B/P (MAP) 92/68 90/68 100/70 Pulse Ox 97 99 O2 Delivery BiPAP/CPAP BiPAP/CPAP 10/03/21 10/03/21 10/03/21 10/03/21 03:00 03:30 04:00 04:00 Temp 97.4 97.4 Pulse 103 89 Resp 20 20 B/P (MAP) 99/70 100/72 100/60 Pulse Ox 100 100 O2 Delivery BiPAP/CPAP Bi-pap BiPAP/CPAP 10/03/21 10/03/21 10/03/21 10/03/21 04:30 05:00 05:51 06:00 Pulse 94 97 Resp 20 20 B/P (MAP) 106/68 91/64 103/76 Pulse Ox 93 99 95 O2 Delivery BiPAP/CPAP BiPAP/CPAP Nasal Cannula O2 Flow Rate 5.0 10/03/21 10/03/21 06:30 08:00 Pulse 91 Resp 20 B/P (MAP) 109/69 Pulse Ox 95 O2 Delivery Nasal Cannula Nasal Cannula O2 Flow Rate 5.0 5.0 Intake and Output 10/02/21 10/02/21 10/03/21 15:00 23:00 07:00 Intake Total 4796 ml 514 ml Output Total 1715 ml 396 ml Balance 4796 ml -1715 ml 118 ml Problem List Problems Medical Problems: (1) Acute GI bleeding Status: Acute (2) Hyperglycemia Status: Acute (3) NSTEMI (non-ST elevated myocardial infarction) Status: Acute (4) Wide-complex tachycardia Status: Acute Assessment Acute blood loss anemia-with PR, medical therpay for 48 hours to minimze risk of rebleeding, heart cath if no bleeding in interim early next week Justicifation of Admission Dx: Justifications for Admission: Justification of Admission Dx: Yes MAIKEL PALACIOS MD October 03, 2021 10:29
--- NOTE | 2021-10-03 11:00 | PDOC ---
[employer] PROGRESS NOTE Date of Service DOS: DATE: 10/03/21 TIME: 10:46 Chief Complaint Chief Complaint Assessment/Plan Transaminitis likely related to shock liver Acute blood loss anemia - 2 u prbc, transfuse for Hb < 8 or if continued GI bleeding. Consult GI Acute GI bleed -status post EGD showing anastomotic ulcer NOT bleeding. Reflux esophagitis. Continue PPI drip Ventricular tachycardia - successfully cardioverted per cardiology. Possible left heart cath next week AFIB with RVR - cannot anticoagulate due to massive GI bleed, rate control difficult with cardiogenic shock Shock - combination of cardiogenic shock and hypovolemic shock. transfuse, judicious fluids, pressors Chest pain - likely due to v-tach, also possibly gastric/peptic/anastomotic ulcer NSTEMI - likely demand ischemia from GI bleed and cardiogenic shock Morbid obesity - s/p dk-en-y gastric bypass (in [place] 2011) Diabetic ketoacidosis - insulin GTT, will not give aggressive fluids given concern for cardiogenic shock HLD - statin CAD s/p stenting x4 2007 and CABG 2018 (FREEMAN to LAD and SVG to OM) - cardiology following, needs treatment for life-threatening GI bleed currently MUNIRA - on CPAP at home, does not know his settings FEN - NPO PPX - PPI, scds FULL CODE Dispo - ICU A total of 32 minutes of critical care time was spent in reviewing chart, labs, and images. Discussed with RN and SW. History of Present Illness History of Present Illness 66 yo male w/ PMHx dk-en-y gastric bypass (in [place] 2011), CAD s/p stenting x4 2007 and CABG 2018 (FREEMAN to LAD and SVG to OM), DM2, HTN, HLD, MUNIRA on CPAP who comes to ED via private vehicle per his for large melanotic stools for the past day. He noted shortness of breath, diaphoresis, pale. He has been having dark stools and had a large loose dark stool yesterday after a cardiology appointment where he had a mobile cardiac nurse monitoring patch (MCOT) placed and ordered blood work. Today he had a massive bloody bowel movement that was foul smelling, dark and loose and had a near syncopal episode per his and c/o some left sided sharp chest pain. He is feeling weak and presently pale. No nausea or vomiting. He takes full dose ASA and also meloxicam. In ED was noted in wide complex tachycardia around 0800 and started on amiodarone, on repeat EKG still notably in wide complex tachycardia an hour later, was cardioverted 100J successfully into afib with aberrant conduction. Labs reveal Hb of 7 and WBC 9.2, platelets 217, NA 136, K3.5, BUN 48, CR 1.5 HCO3 14, anion gap 22, glucose 520, calcium 8.7, magnesium 1.8, bilirubin 0.7, AST 39, ALT 23, alkaline phosphatase 85, CK 163, high-sensitivity troponin is 1580, albumin 3.1, lipase 67, INR 1.2, PTT 27, urinalysis with glucosuria, hemoglobin positive, rapid COVID-19 negative Admitted to ICU for further care. 09/25/2021 No acute events overnight. Patient seen examined bedside. Hemoglobin 8.1 today. No active chest pain. No major telemetry events. No more vomiting episodes. Bowel movements are normal. Patient's chart, labs, images were reviewed and discussed with RN Vitals/I&O Vitals/I&O: Vital Signs Date Time Temp Pulse Resp B/P (MAP) Pulse Ox O2 Delivery O2 Flow Rate FiO2 10/03/21 08:00 Nasal Cannula 5.0 10/03/21 06:30 91 20 109/69 95 10/03/21 04:00 97.4 97.4 I & O 10/02/21 10/02/21 10/03/21 15:00 23:00 07:00 Intake Total 4796 ml 514 ml Output Total 1715 ml 396 ml Balance 4796 ml -1715 ml 118 ml Physical Exam General: Alert, Cooperative, severe distress Heart: Other (AFIB RVR) Abdomen: Normal bowel sounds, Soft, No hepatosplenomegaly, No masses, Other (diffusely tender) Extremities: No clubbing, No cyanosis, Normal pulses, No tenderness/swelling Skin: No rashes, No breakdown, No significant lesion Labs Labs: Laboratory Tests Test 10/02/21 12:04 10/02/21 12:20 10/02/21 12:30 10/02/21 13:10 Glucose (Fingerstick) 459 mg/dL (70-99) 462 mg/dL (70-99) Sodium Level 136 mmol/L (136-145) Potassium Level 4.9 mmol/L (3.5-5.1) Chloride Level 104 mmol/L (98-107) Carbon Dioxide Level 14 mmol/L (21-32) Anion Gap 18 (6-14) Blood Urea Nitrogen 45 mg/dL (8-26) Creatinine 1.4 mg/dL (0.7-1.3) Estimated GFR (Cockcroft-Gault) 50.7 Glucose Level 494 mg/dL (70-99) Calcium Level 7.8 mg/dL (8.5-10.1) Phosphorus Level 4.8 mg/dL (2.6-4.7) Magnesium Level 1.8 mg/dL (1.8-2.4) O2 Saturation 83 % (92-99) Arterial Blood pH 7.28 (7.35-7.45) Arterial Blood pCO2 at Patient Temp 25 mmHg (35-46) Arterial Blood pO2 at Patient Temp 59 mmHg (65-108) Arterial Blood HCO3 12 mmol/L (21-28) Arterial Blood Base Excess -14 mmol/L (-3-3) FiO2 44 Test 10/02/21 14:16 10/02/21 15:10 10/02/21 15:22 10/02/21 16:00 Glucose (Fingerstick) 421 mg/dL (70-99) 370 mg/dL (70-99) Troponin I High Sensitivity 46500 ng/L (4-75) White Blood Count 11.8 x10^3/uL (4.0-11.0) Red Blood Count 3.29 x10^6/uL (4.30-5.70) Hemoglobin 8.7 g/dL (13.0-17.5) Hematocrit 27.0 % (39.0-53.0) Mean Corpuscular Volume 82 fL (79-100) Mean Corpuscular Hemoglobin 27 pg (25-35) Mean Corpuscular Hemoglobin Concent 32 g/dL (31-37) Red Cell Distribution Width 15.4 % (11.5-14.5) Platelet Count 254 x10^3/uL (140-400) Sodium Level 138 mmol/L (136-145) Potassium Level 3.9 mmol/L (3.5-5.1) Chloride Level 105 mmol/L (98-107) Carbon Dioxide Level 17 mmol/L (21-32) Anion Gap 16 (6-14) Blood Urea Nitrogen 42 mg/dL (8-26) Creatinine 1.4 mg/dL (0.7-1.3) Estimated GFR (Cockcroft-Gault) 50.7 Glucose Level 350 mg/dL (70-99) Calcium Level 7.8 mg/dL (8.5-10.1) 25-Hydroxy Vitamin D Total 16.3 ng/mL (30-100) Thyroid Stimulating Hormone (TSH) 2.697 uIU/mL (0.358-3.74) Test 10/02/21 16:27 10/02/21 17:32 10/02/21 18:36 10/02/21 19:32 Glucose (Fingerstick) 341 mg/dL (70-99) 296 mg/dL (70-99) 221 mg/dL (70-99) 160 mg/dL (70-99) Test 10/02/21 20:34 10/02/21 20:40 10/02/21 21:38 10/02/21 22:41 Glucose (Fingerstick) 146 mg/dL (70-99) 123 mg/dL (70-99) 111 mg/dL (70-99) Sodium Level 142 mmol/L (136-145) Potassium Level 3.8 mmol/L (3.5-5.1) Chloride Level 108 mmol/L (98-107) Carbon Dioxide Level 22 mmol/L (21-32) Anion Gap 12 (6-14) Blood Urea Nitrogen 44 mg/dL (8-26) Creatinine 1.3 mg/dL (0.7-1.3) Estimated GFR (Cockcroft-Gault) 55.2 Glucose Level 135 mg/dL (70-99) Calcium Level 8.0 mg/dL (8.5-10.1) Phosphorus Level 2.6 mg/dL (2.6-4.7) Magnesium Level 1.7 mg/dL (1.8-2.4) Troponin I High Sensitivity 305792 ng/L (4-75) Test 10/02/21 23:51 10/03/21 00:57 10/03/21 02:00 10/03/21 02:52 Glucose (Fingerstick) 90 mg/dL (70-99) 115 mg/dL (70-99) 115 mg/dL (70-99) 120 mg/dL (70-99) Test 10/03/21 03:58 10/03/21 04:00 10/03/21 05:00 10/03/21 05:56 Glucose (Fingerstick) 116 mg/dL (70-99) 136 mg/dL (70-99) 133 mg/dL (70-99) White Blood Count 9.2 x10^3/uL (4.0-11.0) Red Blood Count 2.93 x10^6/uL (4.30-5.70) Hemoglobin 8.1 g/dL (13.0-17.5) Hematocrit 23.9 % (39.0-53.0) Mean Corpuscular Volume 82 fL (79-100) Mean Corpuscular Hemoglobin 28 pg (25-35) Mean Corpuscular Hemoglobin Concent 34 g/dL (31-37) Red Cell Distribution Width 15.2 % (11.5-14.5) Platelet Count 181 x10^3/uL (140-400) Sodium Level 142 mmol/L (136-145) Potassium Level 4.0 mmol/L (3.5-5.1) Chloride Level 108 mmol/L (98-107) Carbon Dioxide Level 22 mmol/L (21-32) Anion Gap 12 (6-14) Blood Urea Nitrogen 45 mg/dL (8-26) Creatinine 1.2 mg/dL (0.7-1.3) Estimated GFR (Cockcroft-Gault) 60.6 BUN/Creatinine Ratio 38 (6-20) Glucose Level 113 mg/dL (70-99) Calcium Level 8.0 mg/dL (8.5-10.1) Total Bilirubin 0.7 mg/dL (0.2-1.0) Aspartate Amino Transf (AST/SGOT) 2272 U/L (15-37) Alanine Aminotransferase (ALT/SGPT) 978 U/L (16-63) Alkaline Phosphatase 120 U/L (46-116) Total Protein 5.6 g/dL (6.4-8.2) Albumin 2.8 g/dL (3.4-5.0) Albumin/Globulin Ratio 1.0 (1.0-1.7) Triglycerides Level 35 mg/dL (0-150) Cholesterol Level 64 mg/dL (0-200) LDL Cholesterol, Calculated 23 mg/dL (0-100) VLDL Cholesterol, Calculated 7 mg/dL (0-40) Non-HDL Cholesterol Calculated 30 mg/dL (0-129) HDL Cholesterol 34 mg/dL (40-60) Cholesterol/HDL Ratio 1.9 Test 10/03/21 06:48 10/03/21 07:37 10/03/21 07:53 Glucose (Fingerstick) 145 mg/dL (70-99) 145 mg/dL (70-99) O2 Saturation 92 % (92-99) Arterial Blood pH 7.42 (7.35-7.45) Arterial Blood pCO2 at Patient Temp 26 mmHg (35-46) Arterial Blood pO2 at Patient Temp 77 mmHg (65-108) Arterial Blood HCO3 17 mmol/L (21-28) Arterial Blood Base Excess -7 mmol/L (-3-3) FiO2 40% Assessment and Plan Assessmemt and Plan Problems Medical Problems: (1) Acute GI bleeding Status: Acute (2) Hyperglycemia Status: Acute (3) NSTEMI (non-ST elevated myocardial infarction) Status: Acute (4) Wide-complex tachycardia Status: Acute Comment Review of Relevant I have reviewed the following items rabia (where applicable) has been applied. Medications: Current Medications Medications (Trade) Dose Ordered Sig/Deion Route PRN Reason Start Time Stop Time Status Last Admin Dose Admin Sodium Chloride 1,000 ml @ 250 mls/hr Q4H IV 10/02/21 11:15 10/02/21 13:36 DC 10/02/21 11:16 Insulin Human Regular 100 unit/ Sodium Chloride 101 ml @ 0 mls/hr CONT PRN PRN IV PER PROTOCOL 10/02/21 11:00 10/02/21 17:47 Furosemide (Lasix) 40 mg 1X ONCE IVP 10/02/21 13:45 10/02/21 13:46 DC 10/02/21 15:12 Sucralfate (Carafate Oral Susp) 1 gm QIDACHS PO 10/02/21 16:30 10/03/21 08:05 Potassium Phosphate 13.6 mmol/Sodium Chloride 104.5333 ml @ 52.267 m... Q2H IV 10/02/21 22:45 10/03/21 02:44 DC 10/03/21 00:58 Insulin Glargine (Lantus Syringe) 10 unit BID SQ 10/03/21 09:00 10/03/21 08:19 Magnesium Sulfate 50 ml @ 25 mls/hr 1X ONCE IV 10/02/21 22:45 10/03/21 00:44 DC 10/02/21 23:52 Justifications for Admission Other Justification TREY QUEZADA MD October 03, 2021 11:00
[2021-10-03] MEDS: AMIODARONE HCL 200 MG TABLET. PO SCH (12:59)
[2021-10-03] MEDS: PANTOPRAZOLE 40 MG TABLET.DR. PO SCH (16:00)
[2021-10-03] MEDS ORDERED: ONDANSETRON PF 4 MG/2 ML VIAL. ONE (20:19)
[2021-10-03] MEDS ORDERED: ONDANSETRON PF 4 MG/2 ML VIAL. IVP PRN (20:30)
[2021-10-04] VITALS (15 sets, daily range): BP systolic 92–129; BP diastolic 55–74
[2021-10-04 05:00] LABS: HEMOGLOBIN 7.6 g/dL (13.0-17.5); RED BLOOD COUNT 2.75 x10^6/uL (4.30-5.70); RED CELL DISTRIBUTION WIDTH 15.4 % (11.5-14.5); WHITE BLOOD COUNT 8.9 x10^3/uL (4.0-11.0)
[2021-10-04 05:43] LABS: HEMOGLOBIN A1C 8.2 % (4.8-5.6)
--- NOTE | 2021-10-04 06:10 | RAD ---
XR CHEST 1V Clinical History: Reason: follow-up SOA, cough 108 / Spl. Instructions: / History: Technique: AP view of the chest was obtained at 10/04/2021 4:26 AM. Comparison: October 02, 2021. Findings: There is low lung volumes causing crowding pulmonary vessels. The heart is top normal limits in size. The pulmonary vessels are top normal limits in size. Mediastinal wires and right jugular line are ag ain seen. There is mild perihilar linear opacities. Impression: Minimal infiltrates appear significantly improved. Electronically signed by: Héctor Ashley III, MD (10/04/2021 6:08 AM) RAS
[2021-10-04] MEDS: INSULIN LISPRO 300 UNITS/3 ML VIAL. SQ SCH ×3 (07:26→16:57)
[2021-10-04] MEDS: PANTOPRAZOLE 40 MG TABLET.DR. PO SCH (07:44)
[2021-10-04] MEDS: SUCRALFATE 1 GM/10 ML ORAL.SUSP. PO SCH ×4 (08:11→20:41)
[2021-10-04] MEDS: AMIODARONE HCL 200 MG TABLET. PO SCH (09:26)
[2021-10-04] MEDS: INSULIN GLARGINE SYRINGE. SQ SCH ×2 (09:26→20:49)
--- NOTE | 2021-10-04 09:31 | PDOC ---
PROGRESS NOTES Date of Service: DATE: 10/04/21 TIME: 09:30 Subjective Subjective Denied any chest pain. Dyspnea improved. Objective Objective Vital Signs Date Time Temp Pulse Resp B/P (MAP) Pulse Ox O2 Delivery O2 Flow Rate FiO2 10/04/21 09:26 81 98/59 10/04/21 09:00 24 97 Nasal Cannula 5.0 10/04/21 04:00 98.5 98.5 Intake and Output 10/04/21 07:00 Intake Total 1240 ml Output Total 1375 ml Balance -135 ml Intake Oral 1240 ml Output Urine Total 1375 ml Physical Exam Abdomen: Normal bowel sounds, Soft, No hepatosplenomegaly, No masses, Other (diffusely tender) Heart: Other (AFIB RVR) Extremities: No clubbing, No cyanosis, Normal pulses, No tenderness/swelling General: Alert, Cooperative, severe distress HEENT: Atraumatic, PERRLA, EOMI, Other (pale mucosa) Lungs: Other (bialteral crackles) Neuro: Strength at 5/5 X4 ext, Normal tone, Cranial nerves 3-12 NL, Reflexes 2+ Psych/Mental Status: Other (flat affect, drowsy) Skin: No rashes, No breakdown, No significant lesion Assessment Assessment 1. GI bleed with melena, anemia. Upper GI endoscopy showed reflux esophagitis and bleeding anastomotic ulcer for which he apparently underwent cauterization. Continue proton pump inhibitors and treatment per GI team. 2. Anemia secondary to GI bleed. s/p transfusion. 3. AFIB RVR with abberant conduction s/p cardioversion, presently in sinus rhythm. Continue amiodarone for antiarrhythmic therapy - change to PO. He is presently a poor candidate for long-term anticoagulation. We will consider outpatient referral for LAAO 4. Hypotension: multifactorial, improved. 5. NSTEMI in a patient with known history of coronary artery disease s/p CABG: Could be type 2 demand mediated but significant coronary artery disease needs to be ruled out since troponin level is significantly elevated at 190 K. Timing of cardiac catheterization discussed with GI team - Okay to proceed after 48 hours. We will plan for coronary and bypass graft angiography possibly on Tuesday. 6. Ischemic cardiomyopathy with LVEF 30 to 35% on 2D echo. This is significantly diminished from prior 2D echo that showed normal LV systolic function. Plan for cardiac catheterization as stated above. Repeat 2D echo in 3 months to evaluate the need for AICD [place]. 7. Hx of gastric bypass with ASA and meloxicam use 8. DM2: per PCP 9. HLP: Continue statin therapy Okay for transfer out of ICU Plan Plan of Care Problems Medical Problems: (1) Acute GI bleeding Status: Acute (2) Hyperglycemia Status: Acute (3) NSTEMI (non-ST elevated myocardial infarction) Status: Acute (4) Wide-complex tachycardia Status: Acute Comment Review of Relevant I have reviewed the following items rabia (where applicable) has been applied. Labs Laboratory Tests Test 10/03/21 11:29 10/03/21 14:08 10/03/21 16:00 10/03/21 16:31 Glucose (Fingerstick) 196 mg/dL (70-99) 254 mg/dL (70-99) 235 mg/dL (70-99) Hemoglobin 7.8 g/dL (13.0-17.5) Test 10/03/21 21:13 10/04/21 04:20 10/04/21 07:25 Glucose (Fingerstick) 243 mg/dL (70-99) 228 mg/dL (70-99) White Blood Count 8.9 x10^3/uL (4.0-11.0) Red Blood Count 2.75 x10^6/uL (4.30-5.70) Hemoglobin 7.6 g/dL (13.0-17.5) Hematocrit 23.0 % (39.0-53.0) Mean Corpuscular Volume 84 fL (79-100) Mean Corpuscular Hemoglobin 28 pg (25-35) Mean Corpuscular Hemoglobin Concent 33 g/dL (31-37) Red Cell Distribution Width 15.4 % (11.5-14.5) Platelet Count 155 x10^3/uL (140-400) Microbiology 10/02/21 Urine Culture - Final, Complete Medications Current Medications Amiodarone HCl (Cordarone) 200 mg DAILY PO Last administered on 10/04/21at 09:26; Start 10/03/21 at 12:30 Ondansetron HCl (Zofran) 4 mg PRN Q4HRS PRN IVP NAUSEA/VOMITING Last administered on 10/03/21at 21:09; Start 10/03/21 at 20:30 Ondansetron HCl (Zofran) 4 mg STK-MED ONCE .ROUTE ; Start 10/03/21 at 20:19; Stop 10/03/21 at 20:19; Status DC Pantoprazole Sodium (Protonix) 40 mg BIDAC PO Last administered on 10/04/21at 07:44; Start 10/03/21 at 16:30 Vitals/I & O Vital Sign - Last 24 Hours 10/03/21 10/03/21 10/03/21 10/03/21 12:00 12:00 12:59 13:06 Temp 98.8 98.8 Pulse 80 90 80 Resp 16 B/P (MAP) 120/72 (88) 121/64 121/64 (83) Pulse Ox 93 94 O2 Delivery Nasal Cannula Nasal Cannula Nasal Cannula O2 Flow Rate 5.0 5.0 5.0 10/03/21 10/03/21 10/03/21 10/03/21 16:00 19:00 20:00 20:00 Pulse 81 Resp 20 B/P (MAP) 115/74 (88) Pulse Ox 95 O2 Delivery Nasal Cannula Nasal Cannula Nasal Cannula O2 Flow Rate 5.0 5.0 5.0 5.0 10/03/21 10/03/21 10/03/21 10/03/21 20:00 21:00 22:00 23:00 Temp 98.8 98.8 Pulse 82 80 83 81 Resp 22 B/P (MAP) 121/73 (89) 118/68 (85) 114/70 (85) 113/68 (83) Pulse Ox 96 98 94 94 O2 Delivery Nasal Cannula Nasal Cannula Nasal Cannula Nasal Cannula O2 Flow Rate 5.0 5.0 5.0 5.0 10/03/21 10/04/21 10/04/21 10/04/21 23:59 00:00 00:01 01:00 Temp 98.5 98.5 Pulse 86 86 Resp B/P (MAP) 128/55 (79) 104/61 (75) Pulse Ox 94 97 O2 Delivery Nasal Cannula Nasal Cannula Nasal Cannula O2 Flow Rate 5.0 5.0 5.0 5.0 10/04/21 10/04/21 10/04/21 10/04/21 02:00 03:00 04:00 04:00 Temp 98.5 98.5 Pulse 87 84 86 Resp 22 20 B/P (MAP) 112/69 (83) 127/74 (91) 105/68 (80) Pulse Ox 95 96 91 O2 Delivery Nasal Cannula Nasal Cannula Nasal Cannula O2 Flow Rate 5.0 5.0 5.0 5.0 10/04/21 10/04/21 10/04/21 10/04/21 04:00 05:00 06:00 07:00 Pulse 81 78 80 Resp 26 B/P (MAP) 118/73 (88) 119/67 (84) 129/74 (92) Pulse Ox 94 94 96 O2 Delivery Nasal Cannula Nasal Cannula Nasal Cannula Nasal Cannula O2 Flow Rate 5.0 5.0 5.0 5.0 10/04/21 10/04/21 10/04/21 10/04/21 08:00 08:00 08:00 09:00 Pulse 78 83 Resp B/P (MAP) 114/69 (84) 98/59 (72) Pulse Ox 95 97 O2 Delivery Nasal Cannula Nasal Cannula Nasal Cannula O2 Flow Rate 5.0 5.0 5.0 5.0 10/04/21 09:26 Pulse 81 B/P (MAP) 98/59 Intake and Output 10/03/21 10/03/21 10/04/21 15:00 23:00 07:00 Intake Total 400 ml 240 ml 600 ml Output Total 490 ml 370 ml 515 ml Balance -90 ml -130 ml 85 ml GEOVANNA LOYA MD October 04, 2021 09:30
--- NOTE | 2021-10-04 10:41 | PDOC ---
[employer] PROGRESS NOTE Date of Service DOS: DATE: 10/04/21 TIME: 10:40 Chief Complaint Chief Complaint Assessment/Plan Transaminitis likely related to shock liver Acute blood loss anemia - 2 u prbc, transfuse for Hb < 8 or if continued GI bleeding. Consult GI Acute GI bleed -status post EGD showing anastomotic ulcer NOT bleeding. Reflux esophagitis. Continue PPI drip Ventricular tachycardia - successfully cardioverted per cardiology. Possible left heart cath next week AFIB with RVR - cannot anticoagulate due to massive GI bleed, rate control difficult with cardiogenic shock Shock - combination of cardiogenic shock and hypovolemic shock. transfuse, judicious fluids, pressors Chest pain - likely due to v-tach, also possibly gastric/peptic/anastomotic ulcer NSTEMI - likely demand ischemia from GI bleed and cardiogenic shock Morbid obesity - s/p dk-en-y gastric bypass (in [place] 2011) Diabetic ketoacidosis - insulin GTT, will not give aggressive fluids given concern for cardiogenic shock HLD - statin CAD s/p stenting x4 2007 and CABG 2018 (FREEMAN to LAD and SVG to OM) - cardiology following, needs treatment for life-threatening GI bleed currently MUNIR[place] - on CPAP at home, does not know his settings FEN - NPO PPX - PPI, scds FULL CODE Dispo - ICU A total of 32 minutes of critical care time was spent in reviewing chart, labs, and images. Discussed with RN and SW. History of Present Illness History of Present Illness 66 yo male w/ PMHx dk-en-y gastric bypass (in [place] 2011), CAD s/p stenting x4 2007 and CABG 2018 (FREEMAN to LAD and SVG to OM), DM2, HTN, HLD, MUNIRA on CPAP who comes to ED via private vehicle per his for large melanotic stools for the past day. He noted shortness of breath, diaphoresis, pale. He has been having dark stools and had a large loose dark stool yesterday after a cardiology appointment where he had a mobile cardiac classroom monitor patch (MCOT) placed and ordered blood work. Today he had a massive bloody bowel movement that was foul smelling, dark and loose and had a near syncopal episode per his and c/o some left sided sharp chest pain. He is feeling weak and presently pale. No nausea or vomiting. He takes full dose ASA and also meloxicam. In ED was noted in wide complex tachycardia around 0800 and started on amiodarone, on repeat EKG still notably in wide complex tachycardia an hour later, was cardioverted 100J successfully into afib with aberrant conduction. Labs reveal Hb of 7 and WBC 9.2, platelets 217, NA 136, K3.5, BUN 48, CR 1.5 HCO3 14, anion gap 22, glucose 520, calcium 8.7, magnesium 1.8, bilirubin 0.7, AST 39, ALT 23, alkaline phosphatase 85, CK 163, high-sensitivity troponin is 1580, albumin 3.1, lipase 67, INR 1.2, PTT 27, urinalysis with glucosuria, hemoglobin positive, rapid COVID-19 negative Admitted to ICU for further care. 10/03/2021 No acute events overnight. Patient seen examined bedside. Hemoglobin 8.1 today. No active chest pain. No major telemetry events. No more vomiting episodes. Bowel movements are normal. Patient's chart, labs, images were reviewed and discussed with RN 10/04/2021 No acute events overnight. Patient seen and examined on recliner. Hemoglobin down trended to 7.6. No active bleeding episodes. Tolerating diet. We will transfer out of the ICU today. Plan for left heart cath sometime this week. Ronnell guerrero's chart, labs, images were reviewed and discussed with RN Vitals/I&O Vitals/I&O: Vital Signs Date Time Temp Pulse Resp B/P (MAP) Pulse Ox O2 Delivery O2 Flow Rate FiO2 10/04/21 10:00 82 24 96/59 (71) 96 Nasal Cannula 5.0 10/04/21 04:00 98.5 98.5 I & O 10/03/21 10/03/21 10/04/21 15:00 23:00 07:00 Intake Total 400 ml 240 ml 600 ml Output Total 490 ml 370 ml 515 ml Balance -90 ml -130 ml 85 ml Physical Exam General: Alert, Cooperative, severe distress Heart: Other (AFIB RVR) Abdomen: Normal bowel sounds, Soft, No hepatosplenomegaly, No masses, Other (diffusely tender) Extremities: No clubbing, No cyanosis, Normal pulses, No tenderness/swelling Skin: No rashes, No breakdown, No significant lesion Labs Labs: Laboratory Tests Test 10/03/21 11:29 10/03/21 14:08 10/03/21 16:00 10/03/21 16:31 Glucose (Fingerstick) 196 mg/dL (70-99) 254 mg/dL (70-99) 235 mg/dL (70-99) Hemoglobin 7.8 g/dL (13.0-17.5) Test 10/03/21 21:13 10/04/21 04:20 10/04/21 07:25 Glucose (Fingerstick) 243 mg/dL (70-99) 228 mg/dL (70-99) White Blood Count 8.9 x10^3/uL (4.0-11.0) Red Blood Count 2.75 x10^6/uL (4.30-5.70) Hemoglobin 7.6 g/dL (13.0-17.5) Hematocrit 23.0 % (39.0-53.0) Mean Corpuscular Volume 84 fL (79-100) Mean Corpuscular Hemoglobin 28 pg (25-35) Mean Corpuscular Hemoglobin Concent 33 g/dL (31-37) Red Cell Distribution Width 15.4 % (11.5-14.5) Platelet Count 155 x10^3/uL (140-400) Assessment and Plan Assessmemt and Plan Problems Medical Problems: (1) Acute GI bleeding Status: Acute (2) Hyperglycemia Status: Acute (3) NSTEMI (non-ST elevated myocardial infarction) Status: Acute (4) Wide-complex tachycardia Status: Acute Comment Review of Relevant I have reviewed the following items rabia (where applicable) has been applied. Medications: Current Medications Medications (Trade) Dose Ordered Sig/Deion Route PRN Reason Start Time Stop Time Status Last Admin Dose Admin Amiodarone HCl (Cordarone) 200 mg DAILY PO 10/03/21 12:30 10/04/21 09:26 Pantoprazole Sodium (Protonix) 40 mg BIDAC PO 10/03/21 16:30 10/04/21 10:14 DC 10/04/21 07:44 Ondansetron HCl (Zofran) 4 mg PRN Q4HRS PRN IVP NAUSEA/VOMITING 10/03/21 20:30 10/03/21 21:09 Justifications for Admission Other Justification TREY QUEZADA MD October 04, 2021 10:41
[2021-10-04] MEDS: PANTOPRAZOLE IV PUSH 40 MG VIAL. IVP SCH (20:41)
[2021-10-05] VITALS: BP 108/67
[2021-10-05 04:00] VITALS: BP 118/70
[2021-10-05 05:31] LABS: CALCIUM 7.8 mg/dL (8.5-10.1); CREATININE 0.8 mg/dL (0.7-1.3); GFR 96.7; MAGNESIUM 2.1 mg/dL (1.8-2.4); POTASSIUM 3.9 mmol/L (3.5-5.1)
[2021-10-05 06:01] LABS: BASO % 0 % (0-3); EOS # 0.1 x10^3/uL (0.0-0.7); EOS % 2 % (0-3); HEMATOCRIT 22.9 % (39.0-53.0); HEMOGLOBIN 7.5 g/dL (13.0-17.5); LYMPH # 1.1 x10^3/uL (1.0-4.8); LYMPH % 14 % (24-48); MEAN CORPUSCULAR HEMOGLOBIN 27 pg (25-35); MEAN CORPUSCULAR HGB CONC 33 g/dL (31-37); MEAN CORPUSCULAR VOLUME 83 fL (79-100); MONO # 0.8 x10^3/uL (0.0-1.1); MONO % 11 % (0-9); NEUT # 5.7 x10^3/uL (1.8-7.7); NEUT % 74 % (31-73); PLATELET COUNT 143 x10^3/uL (140-400); RED BLOOD COUNT 2.75 x10^6/uL (4.30-5.70); RED CELL DISTRIBUTION WIDTH 15.1 % (11.5-14.5); WHITE BLOOD COUNT 7.8 x10^3/uL (4.0-11.0)
[2021-10-05 08:00] VITALS: BP 107/66
[2021-10-05] MEDS: SUCRALFATE 1 GM/10 ML ORAL.SUSP. PO SCH ×4 (08:06→20:45)
[2021-10-05] MEDS: PANTOPRAZOLE IV PUSH 40 MG VIAL. IVP SCH ×2 (08:06→20:45)
[2021-10-05] MEDS: AMIODARONE HCL 200 MG TABLET. PO SCH (08:07)
[2021-10-05] MEDS: INSULIN LISPRO 300 UNITS/3 ML VIAL. SQ SCH ×3 (08:34→17:40)
--- NOTE | 2021-10-05 09:54 | PDOC ---
PROGRESS NOTES Date of Service: DATE: 10/05/21 TIME: 09:53 Subjective Subjective Denied any chest pain. Dyspnea improved. Objective Objective Vital Signs Date Time Temp Pulse Resp B/P (MAP) Pulse Ox O2 Delivery O2 Flow Rate FiO2 10/05/21 08:19 100 Nasal Cannula 3.0 10/05/21 08:07 75 107/66 10/05/21 08:00 98.3 22 98.3 Intake and Output0 10/05/21 07:00 Intake Total 680 ml Output Total 1360 ml Balance -680 ml Intake Oral 680 ml Output Urine Total 1360 ml Physical Exam Abdomen: Normal bowel sounds, Soft, No hepatosplenomegaly, No masses, Other (diffusely tender) Heart: Other (AFIB RVR) Extremities: No clubbing, No cyanosis, Normal pulses, No tenderness/swelling General: Alert, Cooperative, severe distress HEENT: Atraumatic, PERRLA, EOMI, Other (pale mucosa) Lungs: Other (bialteral crackles) Neuro: Strength at 5/5 X4 ext, Normal tone, Cranial nerves 3-12 NL, Reflexes 2+ Psych/Mental Status: Other (flat affect, drowsy) Skin: No rashes, No breakdown, No significant lesion Assessment Assessment 1. GI bleed with melena, anemia. Upper GI endoscopy showed reflux esophagitis and bleeding anastomotic ulcer for which he apparently underwent cauterization. Continue proton pump inhibitors and treatment per GI team. 2. Anemia secondary to GI bleed. s/p transfusion. Hemoglobin 7.5 today. 3. AFIB RVR with abberant conduction s/p cardioversion, presently in sinus rhythm. Continue amiodarone for antiarrhythmic therapy - change to PO. He is presently a poor candidate for long-term anticoagulation. We will consider outpatient referral for LAAO 4. Hypotension: multifactorial, improved. 5. NSTEMI in a patient with known history of coronary artery disease s/p CABG: Could be type 2 demand mediated but significant coronary artery disease needs to be ruled out since troponin level is significantly elevated at 190 K. Timing of cardiac catheterization discussed with GI team - Okay to proceed after 48 hours from cauterization. Plan for cardiac catheterization tomorrow. 6. Ischemic cardiomyopathy with LVEF 30 to 35% on 2D echo. This is significantly diminished from prior 2D echo that showed normal LV systolic function. Plan for cardiac catheterization as stated above. Repeat 2D echo in 3 months to evaluate the need for AICD plantation. 7. Hx of gastric bypass with ASA and meloxicam use 8. DM2: per PCP 9. HLP: Continue statin therapy Plan Plan of Care Problems Medical Problems: (1) Acute GI bleeding Status: Acute (2) Hyperglycemia Status: Acute (3) NSTEMI (non-ST elevated myocardial infarction) Status: Acute (4) Wide-complex tachycardia Status: Acute Comment Review of Relevant I have reviewed the following items rabia (where applicable) has been applied. Labs Laboratory Tests Test 10/04/21 11:41 10/04/21 16:56 10/05/21 05:10 10/05/21 08:30 Glucose (Fingerstick) 328 mg/dL (70-99) 278 mg/dL (70-99) 232 mg/dL (70-99) White Blood Count 7.8 x10^3/uL (4.0-11.0) Red Blood Count 2.75 x10^6/uL (4.30-5.70) Hemoglobin 7.5 g/dL (13.0-17.5) Hematocrit 22.9 % (39.0-53.0) Mean Corpuscular Volume 83 fL (79-100) Mean Corpuscular Hemoglobin 27 pg (25-35) Mean Corpuscular Hemoglobin Concent 33 g/dL (31-37) Red Cell Distribution Width 15.1 % (11.5-14.5) Platelet Count 143 x10^3/uL (140-400) Neutrophils (%) (Auto) 74 % (31-73) Lymphocytes (%) (Auto) 14 % (24-48) Monocytes (%) (Auto) 11 % (0-9) Eosinophils (%) (Auto) 2 % (0-3) Basophils (%) (Auto) 0 % (0-3) Neutrophils # (Auto) 5.7 x10^3/uL (1.8-7.7) Lymphocytes # (Auto) 1.1 x10^3/uL (1.0-4.8) Monocytes # (Auto) 0.8 x10^3/uL (0.0-1.1) Eosinophils # (Auto) 0.1 x10^3/uL (0.0-0.7) Basophils # (Auto) 0.0 x10^3/uL (0.0-0.2) Sodium Level 133 mmol/L (136-145) Potassium Level 3.9 mmol/L (3.5-5.1) Chloride Level 101 mmol/L (98-107) Carbon Dioxide Level 25 mmol/L (21-32) Anion Gap 7 (6-14) Blood Urea Nitrogen 24 mg/dL (8-26) Creatinine 0.8 mg/dL (0.7-1.3) Estimated GFR (Cockcroft-Gault) 96.7 Glucose Level 234 mg/dL (70-99) Calcium Level 7.8 mg/dL (8.5-10.1) Magnesium Level 2.1 mg/dL (1.8-2.4) Microbiology 10/02/21 Urine Culture - Final, Complete Medications Current Medications Insulin Glargine (Lantus Syringe) 20 unit BID SQ ; Start 10/05/21 at 09:00 Pantoprazole Sodium (PROTONIX VIAL for IV PUSH) 40 mg BID IVP Last administered on 10/05/21at 08:06; Start 10/04/21 at 21:00 Vitals/I & O Vital Sign - Last 24 Hours 10/04/21 10/04/21 10/04/21 10/04/21 10:00 11:00 12:00 12:02 Temp 98.7 98.7 Pulse 82 78 Resp 24 24 B/P (MAP) 96/59 (71) 95/61 (72) Pulse Ox 96 95 O2 Delivery Nasal Cannula Nasal Cannula Nasal Cannula O2 Flow Rate 5.0 5.0 5.0 5.0 10/04/21 10/04/21 10/04/21 10/04/21 12:04 16:00 16:00 17:00 Temp 98.4 98.4 Pulse 83 85 Resp 22 24 B/P (MAP) 104/63 (77) 92/55 (67) Pulse Ox 94 94 O2 Delivery Nasal Cannula Nasal Cannula Nasal Cannula O2 Flow Rate 5.0 5.0 5.0 3.0 10/04/21 10/04/21 10/05/21 10/05/21 20:00 20:00 00:00 04:00 Temp 98.1 98.8 98.5 98.1 98.8 98.5 Pulse 85 80 76 Resp 20 20 20 B/P (MAP) 93/60 (71) 108/67 (81) 118/70 (86) Pulse Ox 96 97 96 O2 Delivery Nasal Cannula Nasal Cannula Nasal Cannula Nasal Cannula O2 Flow Rate 3.0 3.0 3.0 3.0 10/05/21 10/05/21 10/05/21 10/05/21 08:00 08:00 08:07 08:19 Temp 98.3 98.3 Pulse 72 75 Resp 22 B/P (MAP) 107/66 (80) 107/66 Pulse Ox 95 100 O2 Delivery Nasal Cannula Nasal Cannula Nasal Cannula O2 Flow Rate 3.0 3.0 3.0 Intake and Output 10/04/21 10/04/21 10/05/21 15:00 23:00 07:00 Intake Total 360 ml 320 ml Output Total 280 ml 450 ml 630 ml Balance 80 ml -130 ml -630 ml GEOVANNA LOYA MD October 05, 2021 09:54
[2021-10-05] MEDS: INSULIN GLARGINE SYRINGE. SQ SCH ×2 (10:03→20:47)
--- NOTE | 2021-10-05 11:02 | PDOC ---
[facility] PROGRESS NOTE Date of Service DOS: DATE: 10/05/21 TIME: 11:02 Chief Complaint Chief Complaint Assessment/Plan Transaminitis likely related to shock liver Acute blood loss anemia - 2 u prbc, transfuse for Hb < 8 or if continued GI bleeding. Consult GI Acute GI bleed -status post EGD showing anastomotic ulcer NOT bleeding. Reflux esophagitis. Continue PPI drip Ventricular tachycardia - successfully cardioverted per cardiology. Possible left heart cath next week AFIB with RVR - cannot anticoagulate due to massive GI bleed, rate control difficult with cardiogenic shock Shock - combination of cardiogenic shock and hypovolemic shock. transfuse, judicious fluids, pressors Chest pain - likely due to v-tach, also possibly gastric/peptic/anastomotic ulcer NSTEMI - likely demand ischemia from GI bleed and cardiogenic shock Morbid obesity - s/p dk-en-y gastric bypass (in [place] 2011) Diabetic ketoacidosis - insulin GTT, will not give aggressive fluids given concern for cardiogenic shock HLD - statin CAD s/p stenting x4 2007 and CABG 2018 (FREEMAN to LAD and SVG to OM) - cardiology following, needs treatment for life-threatening GI bleed currently MUNIRA - on CPAP at home, does not know his settings FEN - NPO PPX - PPI, scds FULL CODE Dispo - ICU A total of 32 minutes of critical care time was spent in reviewing chart, labs, and images. Discussed with RN and SW. History of Present Illness History of Present Illness 66 yo male w/ PMHx dk-en-y gastric bypass (in [place] 2011), CAD s/p stenting x4 2007 and CABG 2018 (FREEMAN to LAD and SVG to OM), DM2, HTN, HLD, MUNIRA on CPAP who comes to ED via private vehicle per his for large melanotic stools for the past day. He noted shortness of breath, diaphoresis, pale. He has been having dark stools and had a large loose dark stool yesterday after a cardiology appointment where he had a mobile cardiac night monitor patch (MCOT) placed and ordered blood work. Today he had a massive bloody bowel movement that was foul smelling, dark and loose and had a near syncopal episode per his and c/o some left sided sharp chest pain. He is feeling weak and presently pale. No nausea or vomiting. He takes full dose ASA and also meloxicam. In ED was noted in wide complex tachycardia around 0800 and started on amiodarone, on repeat EKG still notably in wide complex tachycardia an hour later, was cardioverted 100J successfully into afib with aberrant conduction. Labs reveal Hb of 7 and WBC 9.2, platelets 217, NA 136, K3.5, BUN 48, CR 1.5 HCO3 14, anion gap 22, glucose 520, calcium 8.7, magnesium 1.8, bilirubin 0.7, AST 39, ALT 23, alkaline phosphatase 85, CK 163, high-sensitivity troponin is 1580, albumin 3.1, lipase 67, INR 1.2, PTT 27, urinalysis with glucosuria, hemoglobin positive, rapid COVID-19 negative Admitted to ICU for further care. 10/03/2021 No acute events overnight. Patient seen examined bedside. Hemoglobin 8.1 today. No active chest pain. No major telemetry events. No more vomiting episodes. Bowel movements are normal. Patient's chart, labs, images were reviewed and discussed with RN 10/04/2021 No acute events overnight. Patient seen and examined on recliner. Hemoglobin down trended to 7.6. No active bleeding episodes. Tolerating diet. We will transfer out of the ICU today. Plan for left heart cath sometime this week. Ronnell guerrero's chart, labs, images were reviewed and discussed with RN 10/05/2021 No acute events overnight. Patient seen examined bedside. Hemoglobin stable at 7.5. Sugars elevated in the 300s. Increased Lantus to 15 units twice daily. Plan for left heart cath tomorrow. Patient's chart, labs, images were reviewed and discussed with RN Vitals/I&O Vitals/I&O: Vital Signs Date Time Temp Pulse Resp B/P (MAP) Pulse Ox O2 Delivery O2 Flow Rate FiO2 10/05/21 08:19 100 Nasal Cannula 3.0 10/05/21 08:07 75 107/66 10/05/21 08:00 98.3 22 98.3 I & O 10/04/21 10/04/21 10/05/21 15:00 23:00 07:00 Intake Total 360 ml 320 ml Output Total 280 ml 450 ml 630 ml Balance 80 ml -130 ml -630 ml Physical Exam General: Alert, Cooperative, severe distress Heart: Other (AFIB RVR) Abdomen: Normal bowel sounds, Soft, No hepatosplenomegaly, No masses, Other (diffusely tender) Extremities: No clubbing, No cyanosis, Normal pulses, No tenderness/swelling Skin: No rashes, No breakdown, No significant lesion Labs Labs: Laboratory Tests Test 10/04/21 11:41 10/04/21 16:56 10/05/21 05:10 10/05/21 08:30 Glucose (Fingerstick) 328 mg/dL (70-99) 278 mg/dL (70-99) 232 mg/dL (70-99) White Blood Count 7.8 x10^3/uL (4.0-11.0) Red Blood Count 2.75 x10^6/uL (4.30-5.70) Hemoglobin 7.5 g/dL (13.0-17.5) Hematocrit 22.9 % (39.0-53.0) Mean Corpuscular Volume 83 fL (79-100) Mean Corpuscular Hemoglobin 27 pg (25-35) Mean Corpuscular Hemoglobin Concent 33 g/dL (31-37) Red Cell Distribution Width 15.1 % (11.5-14.5) Platelet Count 143 x10^3/uL (140-400) Neutrophils (%) (Auto) 74 % (31-73) Lymphocytes (%) (Auto) 14 % (24-48) Monocytes (%) (Auto) 11 % (0-9) Eosinophils (%) (Auto) 2 % (0-3) Basophils (%) (Auto) 0 % (0-3) Neutrophils # (Auto) 5.7 x10^3/uL (1.8-7.7) Lymphocytes # (Auto) 1.1 x10^3/uL (1.0-4.8) Monocytes # (Auto) 0.8 x10^3/uL (0.0-1.1) Eosinophils # (Auto) 0.1 x10^3/uL (0.0-0.7) Basophils # (Auto) 0.0 x10^3/uL (0.0-0.2) Sodium Level 133 mmol/L (136-145) Potassium Level 3.9 mmol/L (3.5-5.1) Chloride Level 101 mmol/L (98-107) Carbon Dioxide Level 25 mmol/L (21-32) Anion Gap 7 (6-14) Blood Urea Nitrogen 24 mg/dL (8-26) Creatinine 0.8 mg/dL (0.7-1.3) Estimated GFR (Cockcroft-Gault) 96.7 Glucose Level 234 mg/dL (70-99) Calcium Level 7.8 mg/dL (8.5-10.1) Magnesium Level 2.1 mg/dL (1.8-2.4) Assessment and Plan Assessmemt and Plan Problems Medical Problems: (1) Acute GI bleeding Status: Acute (2) Hyperglycemia Status: Acute (3) NSTEMI (non-ST elevated myocardial infarction) Status: Acute (4) Wide-complex tachycardia Status: Acute Comment Review of Relevant I have reviewed the following items rabia (where applicable) has been applied. Medications: Current Medications Medications (Trade) Dose Ordered Sig/Deion Route PRN Reason Start Time Stop Time Status Last Admin Dose Admin Pantoprazole Sodium (PROTONIX VIAL for IV PUSH) 40 mg BID IVP 10/04/21 21:00 10/05/21 08:06 Insulin Glargine (Lantus Syringe) 20 unit BID SQ 10/05/21 09:00 10/05/21 10:03 Justifications for Admission Other Justification TREY QUEZADA MD October 05, 2021 11:02
[2021-10-05 12:00] VITALS: BP 98/65
[2021-10-05 16:00] VITALS: BP 96/55
[2021-10-05 20:00] VITALS: BP 100/60
[2021-10-06] VITALS (20 sets, daily range): BP systolic 104–135; BP diastolic 58–77
--- NOTE | 2021-10-06 07:40 | EKG ---
[facility] [address] [place] [address] Test Date: 2021-10-02 Test Time: 08:09:10 Pat Name: TITUS SHIN Department: Room: 108 1 Gender: M Rivet Flunky: : 1955 Requested By: CELINA PAUL Order Number: [id number] Reading MD: Giancarlo Jacome MD Measurements Intervals [place] Rate: 159 P: [place]: QRS: 0 QRSD: 48 T: -111 QT: 198 QTc: 325 Interpretive Statements PROBABLE ATRIAL FIBRILLATION WITH RVR AND ABERRANCY CANNOT RULE OUT VT Electronically Signed On 10-06-2021 11:30:22 CDT by Giancarlo Jacome MD
--- NOTE | 2021-10-06 07:41 | EKG ---
[facility] [address] [place] [address] Test Date: 2021-10-02 Test Time: 09:27:40 Pat Name: TITUS SHIN Department: Room: 108 1 Gender: M Nursing Home Director: : 1955 Requested By: CELINA PAUL Order Number: [id number] Reading MD: Giancarlo Jacome MD Measurements Intervals [place] Rate: 130 P: [place]: QRS: -57 QRSD: 140 T: 91 QT: 340 QTc: 500 Interpretive Statements ATRIAL FIBRILLATION LBBB Electronically Signed On 10-06-2021 11:28:59 CDT by Giancarlo Jacome MD
--- NOTE | 2021-10-06 07:41 | EKG ---
[facility] [address] [place] [address] Test Date: 2021-10-02 Test Time: 10:01:43 Pat Name: TITUS SHIN Department: Room: 108 1 Gender: M Patient Care Representative: : 1955 Requested By: CELINA PAUL Order Number: [id number] Reading MD: Giancarlo Jacome MD Measurements Intervals [place] Rate: 87 P: -21 [place]: 184 QRS: -51 QRSD: 134 T: 128 QT: 396 QTc: 477 Interpretive Statements SINUS RHYTHM LAFB PVC Electronically Signed On 10-06-2021 11:28:34 CDT by Giancarlo Jacome MD
[2021-10-06] MEDS ORDERED: LIDOCAINE 1% Multi-Dose 20 ML VIAL. ONE ×2 (07:43→10:12)
[2021-10-06] MEDS ORDERED: IOHEXOL 300 MG/ML 100ML VIAL. ONE (07:43)
[2021-10-06] MEDS: INSULIN LISPRO 300 UNITS/3 ML VIAL. SQ SCH ×6 (08:00→17:43)
[2021-10-06] MEDS: PANTOPRAZOLE IV PUSH 40 MG VIAL. IVP SCH ×2 (08:51→20:27)
[2021-10-06] MEDS: SUCRALFATE 1 GM/10 ML ORAL.SUSP. PO SCH ×4 (08:51→20:26)
[2021-10-06] MEDS: AMIODARONE HCL 200 MG TABLET. PO SCH (08:52)
[2021-10-06] MEDS: INSULIN GLARGINE SYRINGE. SQ SCH ×2 (08:54→20:33)
[2021-10-06] MEDS ORDERED: fentaNYL PF VIAL 100 MCG/2 ML VIAL ONE (10:37)
[2021-10-06] MEDS ORDERED: MIDAZOLAM HCL/PF 2 MG/2 ML VIAL. ONE (10:37)
[2021-10-06] MEDS ORDERED: MIDAZOLAM HCL/PF 2 MG/2 ML VIAL. IV ONE (11:00)
[2021-10-06] MEDS ORDERED: diphenhydrAMINE 50 MG/ML VIAL IVP ONE (11:00)
[2021-10-06] MEDS ORDERED: IOHEXOL 300 MG/ML 50 ML VIAL. IART ONE (11:00)
[2021-10-06] MEDS ORDERED: fentaNYL PF VIAL 100 MCG/2 ML VIAL IV ONE (11:00)
[2021-10-06] MEDS ORDERED: LIDOCAINE 1% Multi-Dose 20 ML VIAL. INJ ONE (11:00)
--- NOTE | 2021-10-06 11:01 | PDOC ---
Date of Service: DATE: 10/06/21 TIME: 10:55 Objective: Objective: Nurse called this morning - wanted GI okay to proceed with cardiac cath - no reports of recurrent bleeding - gave okay to proceed and confirmed w/ Dr. Christian. Vital Signs: Vital Signs Date Time Temp Pulse Resp B/P (MAP) Pulse Ox O2 Delivery O2 Flow Rate FiO2 10/06/21 08:52 79 135/71 10/06/21 08:00 97.6 18 99 Nasal Cannula 3.0 97.6 Labs: Laboratory Tests Test 10/05/21 12:24 10/05/21 17:38 10/05/21 20:49 10/06/21 08:54 Glucose (Fingerstick) 292 mg/dL (70-99) 296 mg/dL (70-99) 270 mg/dL (70-99) 200 mg/dL (70-99) Imaging: EGD 10/02 E--Grade A reflux distally. G--S/p distal gastrectomy or partitioning, hard to say. Has gastroenterostomy with shallow ulcer on gastric side, ~12mm. No clot or active bleeding. One small red dot, but no visible vessel. Not treated. D--Has double-barrelled anastomosis, NOT standard Bailey-en-Y. Retained suture in one limb. No blood or other abnormality in either. Steven. well. IMP: Reflux esophagitis. Anastomotic ulcer, not bleeding and seemingly not at high risk to re- bleed. S/p distal gastrectomy or partitioning with gastroenterostomy--NOT Bailey-en-Y. REC: Continue PPI drip. Sucralfate qid. May have ice chips now; if can go 24 hours w/o signs of bleeding, advance diet and po PPI bid. Would keep in ICU at least overnight. Monitor hemoglobin, etc. Transfuse if needed. Would not anticoagulate unless extreme need. Off the weekend. Dr. Wyatt covering. PE: out of room A/P: Melena/anemia - no ongoing melena, Hgb stable in 7s S/p bariatric procedure w/ anastomotic ulcer A Fib, NSTEMI H/o NSAID and ASA use -- Will f/u after cath. Continue PPI (still getting IV - could change to PO) and Carafate. Justicifation of Admission Dx: Justifications for Admission: Justification of Admission Dx: Yes AMINAH SANCHEZ October 06, 2021 11:01
[2021-10-06] MEDS ORDERED: IOHEXOL 300 MG/ML 50 ML VIAL. ONE (11:02)
[2021-10-06] MEDS ORDERED: CONTRAST GIVEN. MC PRN (11:15)
--- NOTE | 2021-10-06 11:16 | PDOC ---
[employer] PROGRESS NOTE Date of Service DOS: DATE: 10/06/21 TIME: 11:15 Chief Complaint Chief Complaint Assessment/Plan Transaminitis likely related to shock liver Acute blood loss anemia - 2 u prbc, transfuse for Hb < 8 or if continued GI bleeding. Consult GI Acute GI bleed -status post EGD showing anastomotic ulcer NOT bleeding. Reflux esophagitis. Continue PPI drip Ventricular tachycardia - successfully cardioverted per cardiology. Possible left heart cath next week AFIB with RVR - cannot anticoagulate due to massive GI bleed, rate control difficult with cardiogenic shock Shock - combination of cardiogenic shock and hypovolemic shock. transfuse, judicious fluids, pressors Chest pain - likely due to v-tach, also possibly gastric/peptic/anastomotic ulcer NSTEMI - likely demand ischemia from GI bleed and cardiogenic shock Morbid obesity - s/p dk-en-y gastric bypass (in [place] 2011) Diabetic ketoacidosis - insulin GTT, will not give aggressive fluids given concern for cardiogenic shock HLD - statin CAD s/p stenting x4 2007 and CABG 2018 (FREEMAN to LAD and SVG to OM) - cardiology following, needs treatment for life-threatening GI bleed currently MUNIRA - on CPAP at home, does not know his settings FEN - NPO PPX - PPI, scds FULL CODE Dispo - ICU A total of 32 minutes of critical care time was spent in reviewing chart, labs, and images. Discussed with RN and SW. History of Present Illness History of Present Illness 66 yo male w/ PMHx dk-en-y gastric bypass (in [place] 2011), CAD s/p stenting x4 2007 and CABG 2018 (FREEMAN to LAD and SVG to OM), DM2, HTN, HLD, MUNIRA on CPAP who comes to ED via private vehicle per his for large melanotic stools for the past day. He noted shortness of breath, diaphoresis, pale. He has been having dark stools and had a large loose dark stool yesterday after a cardiology appointment where he had a mobile cardiac threat monitoring analyst patch (MCOT) placed and ordered blood work. Today he had a massive bloody bowel movement that was foul smelling, dark and loose and had a near syncopal episode per his and c/o some left sided sharp chest pain. He is feeling weak and presently pale. No nausea or vomiting. He takes full dose ASA and also meloxicam. In ED was noted in wide complex tachycardia around 0800 and started on amiodarone, on repeat EKG still notably in wide complex tachycardia an hour later, was cardioverted 100J successfully into afib with aberrant conduction. Labs reveal Hb of 7 and WBC 9.2, platelets 217, NA 136, K3.5, BUN 48, CR 1.5 HCO3 14, anion gap 22, glucose 520, calcium 8.7, magnesium 1.8, bilirubin 0.7, AST 39, ALT 23, alkaline phosphatase 85, CK 163, high-sensitivity troponin is 1580, albumin 3.1, lipase 67, INR 1.2, PTT 27, urinalysis with glucosuria, hemoglobin positive, rapid COVID-19 negative Admitted to ICU for further care. 10/03/2021 No acute events overnight. Patient seen examined bedside. Hemoglobin 8.1 today. No active chest pain. No major telemetry events. No more vomiting episodes. Bowel movements are normal. Patient's chart, labs, images were reviewed and discussed with RN 10/04/2021 No acute events overnight. Patient seen and examined on recliner. Hemoglobin down trended to 7.6. No active bleeding episodes. Tolerating diet. We will transfer out of the ICU today. Plan for left heart cath sometime this week. Ronnell guerrero's chart, labs, images were reviewed and discussed with RN 10/05/2021 No acute events overnight. Patient seen examined bedside. Hemoglobin stable at 7.5. Sugars elevated in the 300s. Increased Lantus to 15 units twice daily. Plan for left heart cath tomorrow. Patient's chart, labs, images were reviewed and discussed with RN 10/06/2021 No acute events overnight. Patient seen examined next recliner. No more bleeding episodes. Plan for left heart cath today. Patient's chart, labs, images were reviewed and discussed with RN Vitals/I&O Vitals/I&O: Vital Signs Date Time Temp Pulse Resp B/P (MAP) Pulse Ox O2 Delivery O2 Flow Rate FiO2 10/06/21 08:52 79 135/71 10/06/21 08:00 97.6 18 99 Nasal Cannula 3.0 97.6 I & O 10/05/21 10/05/21 10/06/21 15:00 23:00 07:00 Intake Total 200 ml Output Total 475 ml 400 ml 1600 ml Balance -475 ml -400 ml -1400 ml Physical Exam General: Alert, Cooperative, severe distress Heart: Other (AFIB RVR) Abdomen: Normal bowel sounds, Soft, No hepatosplenomegaly, No masses, Other (diffusely tender) Extremities: No clubbing, No cyanosis, Normal pulses, No tenderness/swelling Skin: No rashes, No breakdown, No significant lesion Labs Labs: Laboratory Tests Test 10/05/21 12:24 10/05/21 17:38 10/05/21 20:49 10/06/21 08:54 Glucose (Fingerstick) 292 mg/dL (70-99) 296 mg/dL (70-99) 270 mg/dL (70-99) 200 mg/dL (70-99) Assessment and Plan Assessmemt and Plan Problems Medical Problems: (1) Acute GI bleeding Status: Acute (2) Hyperglycemia Status: Acute (3) NSTEMI (non-ST elevated myocardial infarction) Status: Acute (4) Wide-complex tachycardia Status: Acute Comment Review of Relevant I have reviewed the following items rabia (where applicable) has been applied. Medications: Current Medications Medications (Trade) Dose Ordered Sig/Deion Route PRN Reason Start Time Stop Time Status Last Admin Dose Admin Insulin Human Lispro (HumaLOG) 5 units TIDWMEALS SQ 10/06/21 08:00 10/06/21 08:55 Justifications for Admission Other Justification TREY QUEZADA MD October 06, 2021 11:16
--- NOTE | 2021-10-06 11:26 | PDOC ---
MODERATE SEDATION ASSESSMENT RISKS/ALTERNATIVES Risks/Alternatives Risks and alternatives of this type of sedation and procedure discussed with: RISK/ALTERNATIVES: Patient H & P ON CHART H & P H & P on chart and reviewed for co-morbid conditions and appropriate labs. H&P ON CHART: Yes STATUS PREG STATUS ASSESSED: N/A MEDS/ALLERGIES REVIEWED Meds/Allergies Reviewed Medications and Allergies including time and route of recently administered narcotics and sedatives. MEDS/ALLERGIES REVIEWED: Yes ASA RATING ASA RATING: III AIRWAY ASSESSMENT Airway Assessment Airway patency, oral function limitations, presence of caps, crowns, dentures, partials, and ability to extend neck assessed. AIRWAY ASSESSMENT: Yes MALLAMPATI SCORE MALLAMPATI SCORE: II PRE-SEDATION ASSESSMENT PRE-SEDATION ASSESSMENT: Yes GEOVANNA LOYA MD October 06, 2021 11:26
[2021-10-06] MEDS ORDERED: FUROSEMIDE 40 MG/4 ML VIAL. IVP ONE (11:30)
--- NOTE | 2021-10-06 11:43 | CARD ---
MR#: [id number] Date of Study: 10/06/2021 Ordering Physician: GEOVANNA MABRY, Referring Physician: GEOVANNA MABRY, Tech: RT Diann(R) APPROVED REPORT Technologist: RT Diann(R) Nurse: Neelima Moss RN Procedure(s) performed: Left heart catheterization, selective coronary angiography and selective kvng ography of the bypass grafts Fluoro time: 6.0 min dose: 100 gycm2 contrast: 105cc omni 300 moderate sedation: 36 min INDICATION The indication(s) include : non-STEMI . [facility] Clinical Frailty Scale [facility] Clinical Frailty Scale: Mildly Frail Heart Failure Heart Failure: Yes If Yes, Newly Diagnosed: No If Yes, HF Type: Systolic If Yes, NYHA Class: Class III CASE TECHNIQUE IV conscious sedation was used throughout procedure with appropriate monitoring and was performed in the presence of a registered nurse who was an independent trained observer other than the physician p erforming the procedure. During this case, Fluoroscopy and low osmolar contrast were used for imaging . Specimen(s) Removed: No Estimated Blood loss: 15 cc's. PROCEDURE NARRATIVE After explaining the risk, benefits and alternative options, informed consent was obtained from patie nt. Patient was brought to the cardiac Switchboard Manager and his right groin was prepped and draped in the us ual fashion. 20 cc of 2% lidocaine was infiltrated into the skin and subcutaneous tissues for local anesthesia. Arterial access was obtained in the right common femoral artery and a 6 Scottish sheath wa s inserted. 6 Scottish JL 4 and 6 Scottish JR4 catheters were used to perform selective angiography of t he left and right coronary arteries. 6 [place] JR4 catheter was then used to perform selective angiog candice of the saphenous vein graft to the obtuse marginal branch of left circumflex artery. 6 Scottish IM catheter was used to perform selective angiography of the left internal mammary artery graft to th e left anterior descending artery. LVEDP and transaortic gradients were measured. Left ventriculogr aphy was not performed since 2D echo this admission showed LVEF 30 to 35%. Patient tolerated the pro cedure well. Hemostasis was achieved using Angio-Seal. There were no immediate complications. FINDINGS 1. Hemodynamics: Elevated left ventricular end-diastolic pressure of 30 mmHg consistent with acute s ystolic heart failure. No pullback gradient across aortic valve. 2. Coronary and bypass graft angiography: a. The left main coronary artery arose from the left sinus of Valsalva, gave rise to the left anteri or descending left circumflex arteries and showed 90% distal segment stenosis. b. The left anterior descending artery showed 90% stenosis in the proximal segment and 100% occlusio n in the midsegment. c. The left circumflex artery showed 90% stenosis involving the proximal segment and 90% stenosis in volving the mid segment. d. The right coronary artery was a nondominant vessel arising from the right sinus of Valsalva that did not show any significant stenosis. e. The saphenous vein graft to the obtuse marginal branch was widely patent. g. The left internal mammary artery graft to the left anterior descending artery was widely patent. Just distal to the anastomosis, there was 60% stenosis noted. The very distal segment towards the a pical wall showed 99% stenosis followed by complete occlusion, probably the culprit lesion for patien t's non-STEMI. Conclusion 1. Severe [place] vessel coronary artery disease s/p coronary artery bypass surgery as described abov e with patent saphenous vein graft to the obtuse marginal branch of left circumflex artery, patent le ft internal mammary to graft to the left anterior descending artery, complete occlusion of the distal segment of left anterior descending artery. The right coronary artery was nondominant and not graft ed. 2. Elevated left ventricular end-diastolic pressure consistent with acute systolic heart failure. Recommendations Optimization of medical therapy for coronary artery disease and ischemic cardiomyopathy Repeat 2D echo in 3 months to evaluate the need for AICD implantation Signed by : Geovanna Mabry, Electronically Approved : 10/06/2021 11:43:05
== END 2021-10-07 | disposition home or self-care (01) | DRG 377 ==
LOC: ER 07:46 → 1 WEST ICU 10:03
PROVIDERS: ADMIT Internal Medicine; ATTEND Internal Medicine
PROC: 0DJ08ZZ Inspection of Upper Intestinal Tract, Via Natural or Artificial Opening Endoscopic (ICD-10-PCS; 2021-10-02)
PROC: 5A09357 Assistance with Respiratory Ventilation, Less than 24 Consecutive Hours, Continuous Positive Airway Pressure (ICD-10-PCS; 2021-10-02)
PROC: 5A2204Z Restoration of Cardiac Rhythm, Single (ICD-10-PCS; 2021-10-02)
PROC: 30233N1 Transfusion of Nonautologous Red Blood Cells into Peripheral Vein, Percutaneous Approach (ICD-10-PCS; principal; 2021-10-02 14:00)
PROC: 4A023N7 Measurement of Cardiac Sampling and Pressure, Left Heart, Percutaneous Approach (ICD-10-PCS; 2021-10-06)
PROC: B2111ZZ Fluoroscopy of Multiple Coronary Arteries using Low Osmolar Contrast (ICD-10-PCS; 2021-10-06)
PROC: B2181ZZ Fluoroscopy of Left Internal Mammary Bypass Graft using Low Osmolar Contrast (ICD-10-PCS; 2021-10-06)
PROC: B2131ZZ Fluoroscopy of Multiple Coronary Artery Bypass Grafts using Low Osmolar Contrast (ICD-10-PCS; 2021-10-06)
PROC: 02HV33Z Insertion of Infusion Device into Superior Vena Cava, Percutaneous Approach (ICD-10-PCS; 2021-10-06)
DX: K28.4 Chronic or unspecified gastrojejunal ulcer with hemorrhage (principal); K72.00 Acute and subacute hepatic failure without coma; E11.10 Type 2 diabetes mellitus with ketoacidosis without coma; R57.0 Cardiogenic shock; R57.1 Hypovolemic shock; I50.21 Acute systolic (congestive) heart failure; I21.A1 Myocardial infarction type 2; I47.2 Ventricular tachycardia; D62 Acute posthemorrhagic anemia; K90.9 Intestinal malabsorption, unspecified; N17.9 Acute kidney failure, unspecified; E66.01 Morbid (severe) obesity due to excess calories; E78.00 Pure hypercholesterolemia, unspecified; E78.5 Hyperlipidemia, unspecified; G47.33 Obstructive sleep apnea (adult) (pediatric); I25.10 Atherosclerotic heart disease of native coronary artery without angina pectoris; I25.5 Ischemic cardiomyopathy; I48.91 Unspecified atrial fibrillation; K21.00 Gastro-esophageal reflux disease with esophagitis, without bleeding; Z20.822 Contact with and (suspected) exposure to COVID-19; Z79.82 Long term (current) use of aspirin; Z82.49 Family history of ischemic heart disease and other diseases of the circulatory system; Z83.3 Family history of diabetes mellitus; Z86.73 Personal history of transient ischemic attack (TIA), and cerebral infarction without residual deficits; Z90.49 Acquired absence of other specified parts of digestive tract; Z95.1 Presence of aortocoronary bypass graft; Z95.5 Presence of coronary angioplasty implant and graft; Z98.84 Bariatric surgery status; M19.90 Unspecified osteoarthritis, unspecified site; I11.0 Hypertensive heart disease with heart failure; Z79.01 Long term (current) use of anticoagulants; Z79.899 Other long term (current) drug therapy; I95.9 Hypotension, unspecified; R74.01 Elevation of levels of liver transaminase levels
CPT/HCPCS: 43235; 92960; 93459; 96365; 96367; 96372; 96375; 99291; G0269; 36415; 36430; 36600; 71045; 80048; 80053; 80061; 81001; 82274; 82306; 82553; 82607; 82805; 82962; 83036; 83690; 83735; 84100; 84443; 84484; 85018; 85025; 85027; 85610; 85730; 86850; 86900; 86901; 86920; 87086; 87426; 93005; 93306; 94660; 94760; 99152; 99153; C1894; C9113; J0282; J1200; J1644; J1815; J1940; J2250; J2405; J3010; J3475; J3490; J7030; J7060; P9016; Q9967; U0003; C8929; G0378